=== PATIENT | female | born 1935 | race Caucasian/White ===

== ENCOUNTER 2016-08-10 19:13 | Inpatient (IN) | payer OTHER ==
[2016-08-10] MEDS ORDERED: ONDANSETRON 4 MG/2 ML VIAL IVPUSH ONE (21:06)
[2016-08-10] MEDS ORDERED: SODIUM CHLORIDE 1,000 ML IV STA ×2 (21:06→23:46)
--- NOTE | 2016-08-10 21:06 | PDOC ---
History of Present Illness - General History Source: Patient, Old Records Exam Limitations: No Limitations <Elvira Bennett - Last Filed: 08/10/16 21:17> - General History Source: Patient, Old Records Exam Limitations: No Limitations - History of Present Illness Initial Comments: 08/10/16 22:36 The patient is an 81 year old female, with a significant past medical history of HTN, Afib (on Eliquis), [place] (2015), CVA (2015), diverticulitis s/p resection with colostomy bag and breast CA s/p right mastectomy, who presents to the emergency department with nausea, vomiting, diarrhea and abdominal pain for the past 4 days. The patient reports that she ate tuna fish for lunch 4 days ago. After eating the tuna fish, the patient reports that she began feeling nauseous , began vomiting and experiencing abdominal pain, worst in the RLQ. The patient additionally reports multiple episodes of diarrhea and increased output into her colostomy bag. The patient reports that the nausea and vomiting have since resolved, although the diarrhea and abdominal pain has persisted. She additionally reports feeling generally weak over the past 4 days. Her PCP prescribed Loperamide for the diarrhea, but she reports no relief of symptoms. She presents to the ED today because of the weakness she has been experiencing and because of the persistent diarrhea and RLQ abdominal pain. The patients home health aide is with her in the ED. The patient denies fever, chills, cough , dysuria or any recent illnesses. Allergies: Sulfa, Atropine, Nitrofurantoin, Nitrofurantoin Macrocrystalline, Pantoprazole Sodium, Venlafaxine HCl, Clindamycin, Clonazepam, Digoxin, Escitalopram Oxalate, Famotidine, Furosemide, Gatifloxacin, Gentamicin, Hydroxyzine HCl, Hydroxyzine Pamoate, Levofloxacin, Metoprolol Succinate, Moxifloxacin HCl, Mupirocin, Paroxetine HCl, Sertraline HCl, Sotalol, Tramadol HCl Past Surgical History: Breast CA s/p Right Mastectomy, Diverticulitis s/p Resection w/ Colostomy Bag. Social History: Non smoker. Denies alcohol or drug use. PCP: Dr. Davis <Jayne Go - Last Filed: 08/10/16 23:33> - General Chief Complaint: Vomiting/Diarrhea Stated Complaint: LIGHTHEADED Time Seen by Provider: 08/10/16 20:27 Past History - Past Medical History Anemia: No Asthma: No Cancer: Yes (RT BREAST STATUS post partial mastectomy) Cardiac Disorders: Yes ([place]) CVA: Yes COPD: No CHF: No Dementia: No Diabetes: No GI Disorders: Yes (diverticulitis) Disorders: No HTN: Yes Hypercholesterolemia: No Kidney Stones: Yes Liver Disease: No Suicide Attempt (Hx): No Seizures: No Thyroid Disease: No - Surgical History Abdominal Surgery: Yes (COLOSTOMY) Appendectomy: No Cardiac Surgery: No Cholecystectomy: No Lung Surgery: No Neurologic Surgery: No Orthopedic Surgery: No - Immunization History Immunization Up to Date: Yes - Psycho/Social/Smoking Cessation Hx Anxiety: No Suicidal Ideation: No Smoking Status: No Smoking History: Never smoked Have you smoked in the past 12 months: No Number of Cigarettes Smoked Daily: 0 Hx Alcohol Use: No Drug/Substance Use Hx: No Substance Use Type: None Hx Substance Use Treatment: No <Elvira Bennett - Last Filed: 08/10/16 21:17> <Jayne Go - Last Filed: 08/10/16 23:33> - Past Medical History Allergies/Adverse Reactions: Allergies Allergy/AdvReac Type Severity Reaction Status Date / Time Sulfa (Sulfonamide Allergy Unknown Verified 08/10/16 19:26 Antibiotics) [Sulfa(Sulfonamide Antibiotics)] atropine Allergy Verified 08/10/16 19:26 nitrofurantoin Allergy Verified 08/10/16 19:26 [From Macrobid] nitrofurantoin Allergy Verified 08/10/16 19:26 macrocrystalline [From Macrobid] pantoprazole sodium Allergy Verified 08/10/16 19:26 [From Protonix] venlafaxine HCl Allergy Verified 08/10/16 19:26 [From Effexor] clindamycin AdvReac Verified 08/10/16 19:26 clonazepam AdvReac Verified 08/10/16 19:26 digoxin AdvReac Verified 08/10/16 19:26 escitalopram oxalate AdvReac Verified 08/10/16 19:26 [From Lexapro] famotidine AdvReac Verified 08/10/16 19:26 furosemide [From Lasix] AdvReac Verified 08/10/16 19:26 gatifloxacin [From Tequin] AdvReac Verified 08/10/16 19:26 gentamicin [Gentamicin] AdvReac Verified 08/10/16 19:26 hydroxyzine HCl AdvReac Verified 08/10/16 19:26 [From Vistaril] hydroxyzine pamoate AdvReac Verified 08/10/16 19:26 [From Vistaril] levofloxacin [From Levaquin] AdvReac Verified 08/10/16 19:26 metoprolol succinate AdvReac Verified 08/10/16 19:26 [From Toprol XL] moxifloxacin HCl AdvReac Verified 08/10/16 19:26 [From Avelox] mupirocin AdvReac Verified 08/10/16 19:26 paroxetine HCl [From Paxil] AdvReac Verified 08/10/16 19:26 sertraline HCl [From Zoloft] AdvReac Verified 08/10/16 19:26 sotalol [Sotalol] AdvReac Verified 08/10/16 19:26 tramadol HCl [From Ultram] AdvReac Verified 08/10/16 19:26 Home Medications: Ambulatory Orders Cyanocobalamin Vit B-12 Inj. [Vitamin B12 Injection -] 1,000 mcg IM MONTHLY Amlodipine Besylate [Norvasc -] 10 mg PO DAILY tablet 05/17/15 Aspirin [ASA -] 325 mg PO DAILY tablet 05/17/15 Carvedilol Phosphate [Coreg Cr -] 40 mg PO DAILY capsule. 05/17/15 Diazepam [Valium] 2 mg PO TID PRN #0 tablet 05/17/15 Fenofibric Acid [Trilipix -] 135 mg PO DAILY #30 cap 05/19/15 Zinc Sulfate 220 mg PO DAILY 05/27/15 Carvedilol Phosphate [Coreg Cr -] 80 mg PO DAILY capsule.sa 05/28/15 Ranolazine [Ranexa -] 500 mg PO BID #60 tab 05/28/15 Valsartan [Diovan] 160 mg PO DAILY tablet 05/28/15 Apixaban [Eliquis] 5 mg PO BID 08/24/15 Aspirin [Ecotrin] 81 mg PO DAILY 08/24/15 Carvedilol [Coreg] 12.5 mg PO BID 08/24/15 Cefpodoxime Proxetil [Vantin -] 100 mg PO BID #14 tablet 08/24/15 Review of Systems - Review of Systems Able to Perform ROS?: Yes Comments:: 08/10/16 22:36 GENERAL/CONSTITUTIONAL: +Weakness. No fever or chills. HEAD, EYES, EARS, NOSE AND THROAT: No change in vision. No ear pain or discharge. No sore throat. CARDIOVASCULAR: No chest pain or shortness of breath. RESPIRATORY: No cough, wheezing, or hemoptysis. GASTROINTESTINAL: +Diarrhea, RLQ abdominal pain. No nausea, vomiting or constipation. GENITOURINARY: No dysuria, frequency, or change in urination. MUSCULOSKELETAL: No joint or muscle swelling or pain. No neck or back pain. SKIN: No rash. NEUROLOGIC: No headache, vertigo, loss of consciousness, or change in strength/ sensation. ENDOCRINE: No increased thirst. No abnormal weight change. HEMATOLOGIC/LYMPHATIC: No anemia, easy bleeding, or history of blood clots. ALLERGIC/IMMUNOLOGIC: No hives or skin allergy. <Jayne Go - Last Filed: 08/10/16 23:33> *Physical Exam - Vital Signs Last Vital Signs Temp Pulse Resp BP Pulse Ox 97.7 F 97 H 18 150/80 96 08/10/16 19:33 08/10/16 19:33 08/10/16 19:33 08/10/16 19:33 08/10/16 19:33 <Elvira Bennett - Last Filed: 08/10/16 21:17> - Vital Signs Last Vital Signs Temp Pulse Resp BP Pulse Ox 97.7 F 97 H 18 150/80 96 08/10/16 19:33 08/10/16 19:33 08/10/16 19:33 08/10/16 19:33 08/10/16 19:33 - Physical Exam Comments: 08/10/16 21:57 GENERAL: Awake, alert, and fully oriented, in no acute distress. HEAD: No signs of trauma. EYES: PERRLA, EOMI, sclera anicteric, conjunctiva clear. ENT: Auricles normal inspection, hearing grossly normal, nares patent, oropharynx clear without exudates. Moist mucosa. NECK: Normal ROM, supple, no lymphadenopathy, JVD, or masses. LUNGS: Breath sounds equal, clear to auscultation bilaterally. No wheezes, and no crackles. HEART: Regular rate and rhythm, normal S1 and S2, no murmurs, rubs or gallops. ABDOMEN: RLQ tenderness to palpation. Soft, normoactive bowel sounds. No guarding, no rebound. No masses. EXTREMITIES: Normal range of motion, no edema. No clubbing or cyanosis. No cords, erythema, or tenderness. NEUROLOGICAL: Cranial nerves II through XII grossly intact. Normal speech, gait is deferred. SKIN: Warm, dry, normal turgor, no rashes or lesions noted. <Jayne Go - Last Filed: 08/10/16 23:33> Heart Score/ECG Review #1 ECG reviewed & interpreted by me at: 23:22 (Atrial fibrillation with a ventricular rate between 75-[address] segment changes. ) <Jayne Go - Last Filed: 08/10/16 23:33> ED Treatment Course - LABORATORY CBC & Chemistry Diagram: 08/10/16 22:15 08/10/16 22:15 <Jayne Go - Last Filed: 08/10/16 23:33> Medical Decision Making - Medical Decision Making 08/10/16 21:17 81-year-old female with history of hypertension, a-fib, CVA, CAD, perforated diverticulitis with a colostomy who presents to the emergency department with a 4 day history of nausea, vomiting and abdominal pain as well as increased output into her colostomy bag. Differential diagnosis includes but is not limited to: Acute gastroenteritis, colitis, appendicitis, electrolyte abnormality, dehydration, toxic/metabolic derangement. Plan: 1. Labs 2. IV fluids for hydration 3. Antiemetics 4. Pain management 5. Will likely require abdominal imaging with CT scan 6. Observe and reevaluate <Elvira Bennett - Last Filed: 08/10/16 21:17> *DC/Admit/Observation/Transfer - Attestations Physician Attestion: 08/10/16 21:27 I, Dr. Elvira Bennett, attest that the scribes documentation that appears above has been prepared under my direction and personally reviewed by me in its entirety. I confirmed that the note above accurately reflects all work, treatment, procedures, and medical decision-making performed by me. <Elvira Bennett - Last Filed: 08/10/16 21:17> - Attestations Scribe Attestion: 08/10/16 21:55 Documentation prepared by Jayne Go, acting as medical clinic manager for Elvira Bennett MD. <Jayne Go - Last Filed: 08/10/16 23:33> Diagnosis at time of Disposition: Abdominal pain, Nausea and vomiting, Diarrhea - Referrals Referrals: Kristopher Davis MD [Primary Care Provider] - Addendum entered and electronically signed by Angelique Christina MD 08/11/16 03:02: Progress Note - Progress Note Progress Note: EXAM: CT abdomen and pelvis without contrast IMAGES: [id number] INDICATION: Abdominal pain DATE OF SERVICE: 2016-08-11 01:38:32.0 COMPARISON: none FINDINGS: Lung bases are clear. The visualized cardiac chambers are normal size and configuration. The multiple bilateral renal cysts, bilateral renal scarring and moderate right renal atrophy. There is a 2.0 x 1.6 cm staghorn calculus the right kidney without hydronephrosis. Normal unenhanced liver, gallbladder, pancreas, spleen, adrenal glands . No bowel obstruction or inflammation. There is a left abdominal colostomy small parastomal hernia. Extensive diastases recti and fat containing ventral hernia is also noted. There is sigmoid diverticulosis without diverticulitis. There is no aortic aneurysm. There is no significant retroperitoneal lymphadenopathy. The appendix is normal. The uterus and adnexal structures are normal. Urinary bladder is unremarkable. There is no pelvic free fluid. No discrete pelvic lymphadenopathy is identified. L1 compression fractures noted, likely old with mild retropulsion and canal narrowing. IMPRESSION: 2 cm right renal staghorn calculus with right renal atrophy and bilateral renal scarring, but no hydronephrosis. Mild central canal narrowing from old L1 compression fracture. Postoperative changes without definite acute pathology. THIS DOCUMENT HAS BEEN ELECTRONICALLY SIGNED Pt will be sent home with ceftin 500BID x 7 days Addendum entered and electronically signed by Angelique Christina MD 08/11/16 06:24: Progress Note - Progress Note Progress Note: Patient's CT scan is normal; labs normal; she has a UTI and she will be discharged home
[2016-08-10 22:29] LABS: BASOPHIL 0.3 % (0-2.0); EOSINOPHIL 1.7 % (0-4.5); MCH 28.8 pg (25.7-33.7); MCHC 33.2 g/dl (32.0-36.0); MEAN CELL VOLUME 86.5 fl (80-96); MEAN PLT VOLUME 7.5 fl (7.5-11.1); NEUTROPHILS 69.1 % (42.8-82.8); PLATELET COUNT 201 K/MM3 (134-434); RDW 13.8 % (11.6-15.6); WHITE BLOOD COUNT 6.5 K/mm3 (4.0-10.0)
[2016-08-10 22:57] LABS: ALBUMIN 3.7 g/dl (3.4-5.0); ANION GAP 9 (8-16); BILIRUBIN,TOTAL 0.6 mg/dL (0.2-1.0); CALCIUM 8.3 mg/dL (8.5-10.1); CO2 23 mmol/L (21-32); CREATININE 1.3 mg/dL (0.55-1.02); GLUCOSE,RANDOM 104 mg/dL (74-106); MAGNESIUM 2.1 mg/dL (1.8-2.4); PHOSPHOROUS 3.6 mg/dL (2.5-4.9); SGOT/AST 30 U/L (15-37); SGPT/ALT 45 U/L (12-78); TOT PROT 7.4 g/dl (6.4-8.2)
[2016-08-10 23:00] LABS: ALK PHOS 77 U/L (45-117); TROPONIN I < 0.02 ng/ml (0.00-0.05)
[2016-08-10] MEDS ORDERED: POTASSIUM CHLORIDE TABS 20 MEQ TABLET.ER (FP) PO ONE ×2 (23:48→23:53)
[2016-08-11] MEDS ORDERED: POTASSIUM CHLORIDE 40 MEQ/30 ML UNIT DOSE CUP ONE ×2 (00:07→00:24)
[2016-08-11] MEDS ORDERED: POTASSIUM CHLORIDE 40 MEQ/30 ML UNIT DOSE CUP PO ONE (00:22)
[2016-08-11 01:06] LABS: URINE APPEARANCE SLCLOUDY; URINE BILIRUBIN NEGATIVE (NEGATIVE); URINE COLOR LTYELLOW; URINE GLUCOSE (UA) NEGATIVE (NEGATIVE); URINE KETONE NEGATIVE (NEGATIVE); URINE NITRITE NEGATIVE (NEGATIVE); URINE PROTEIN NEGATIVE (NEGATIVE); URINE UROBILINOGEN NEGATIVE E.U./dl (0.2-1.0)
[2016-08-11 01:16] LABS: URINE BLOOD 1+ (NEGATIVE); URINE LEUK ESTERASE 2+ (NEGATIVE)
[2016-08-11 01:18] LABS: URINE BACTERIA MANY /hpf (NONE SEEN); URINE RBC 2 /hpf (0-3); URINE WBC 50 /hpf (3-5)
[2016-08-11] MEDS ORDERED: CEPHALEXIN MONOHYDRATE 500 MG CAPSULE (UD) PO ONE (01:33)
[2016-08-11] MEDS ORDERED: MIDAZOLAM HCL 2 MG/2 ML SINGLE DOSE VIAL IVPUSH ONE (01:36)
[2016-08-11] MEDS ORDERED: MIDAZOLAM HCL 2 MG/2 ML SINGLE DOSE VIAL ONE (01:38)
[2016-08-11] MEDS ORDERED: CEPHALEXIN MONOHYDRATE 250 MG CAPSULE (FP) ONE (01:49)
[2016-08-11] MEDS ORDERED: MAGNESIUM SULF 50% (8.12 MEQ/2 ML-1 GM VIAL) IVPB ONE (06:02)
[2016-08-11] MEDS ORDERED: MAGNESIUM SULF 50% (8.12 MEQ/2 ML-1 GM VIAL) ONE (06:08)
--- NOTE | 2016-08-11 06:26 | PDOC ---
*Physical Exam - Vital Signs Last Vital Signs Temp Pulse Resp BP Pulse Ox 97.7 F 97 H 18 150/80 96 08/10/16 19:33 08/10/16 19:33 08/10/16 19:33 08/10/16 19:33 08/10/16 19:33 <TaraKaylan - Last Filed: 08/11/16 06:33> - Vital Signs Last Vital Signs Temp Pulse Resp BP Pulse Ox 97.7 F 97 H 18 150/80 96 08/10/16 19:33 08/10/16 19:33 08/10/16 19:33 08/10/16 19:33 08/10/16 19:33 <Angelique Christina - Last Filed: 08/11/16 22:37> ED Treatment Course - LABORATORY CBC & Chemistry Diagram: 08/10/16 22:15 08/10/16 22:15 - ADDITIONAL ORDERS Additional order review: Laboratory Results 08/11/16 08/10/16 08/10/16 00:58 22:15 22:15 Sodium 139 Potassium 3.2 L Chloride 107 Carbon Dioxide 23 Anion Gap 9 BUN 35 H D Creatinine 1.3 H D Creat Clearance w eGFR 39.31 Random Glucose 104 Calcium 8.3 L Phosphorus 3.6 Magnesium 2.1 Total Bilirubin 0.6 AST 30 D ALT 45 D Alkaline Phosphatase 77 Creatine Kinase 105 Troponin I < 0.02 Total Protein 7.4 Albumin 3.7 Lipase 104 Urine Color Ltyellow Urine Appearance Slcloudy Urine pH 5.0 Ur Specific Combs 1.015 Urine Protein Negative Urine Glucose (UA) Negative Urine Ketones Negative Urine Blood 1+ H Urine Nitrite Negative Urine Bilirubin Negative Urine Urobilinogen Negative Ur Leukocyte Esterase 2+ H Urine RBC 2 Urine WBC 50 Ur Epithelial Cells Rare Urine Bacteria Many 08/10/16 22:15 RBC 4.69 D MCV 86.5 MCHC 33.2 RDW 13.8 MPV 7.5 Neutrophils % 69.1 Lymphocytes % 18.7 D Monocytes % 10.2 Eosinophils % 1.7 Basophils % 0.3 - Medications Given in the ED: ED Medications Discontinued Medications Generic Name Dose Route Start Last Admin Trade Name Freq PRN Reason Stop Dose Admin Cephalexin HCl 500 mg 08/11/16 01:33 08/11/16 01:56 Keflex - PO 08/11/16 01:34 500 mg ONCE ONE Administration Sodium Chloride 1,000 mls @ 1,000 mls/hr 08/10/16 21:06 08/10/16 22:24 Normal Saline - IV 08/10/16 22:05 1,000 mls/hr ASDIR STA Administration Sodium Chloride 1,000 mls @ 1,000 mls/hr 08/10/16 23:46 08/11/16 00:05 Normal Saline - IV 08/11/16 00:45 1,000 mls/hr ASDIR STA Administration Magnesium Sulfate 2 gm 08/11/16 06:02 08/11/16 06:16 Magnesium Sulfate IVPB 08/11/16 06:03 2 gm ONCE ONE Administration Midazolam HCl 1 mg 08/11/16 01:36 08/11/16 01:45 Versed - IVPUSH 08/11/16 01:37 Not Given ONCE ONE Ondansetron HCl 4 mg 08/10/16 21:06 08/10/16 22:24 Zofran Injection IVPUSH 08/10/16 21:07 Not Given ONCE ONE Potassium Chloride 40 meq 08/10/16 23:48 08/11/16 00:28 K-Dur - PO 08/10/16 23:49 Not Given ONCE ONE Potassium Chloride 40 meq 08/11/16 00:22 08/11/16 00:28 Kcl Oral Solution - PO 08/11/16 00:23 40 meq ONCE ONE Administration <Kaylan Pacheco - Last Filed: 08/11/16 06:33> - LABORATORY CBC & Chemistry Diagram: 08/10/16 22:15 08/11/16 08:10 - ADDITIONAL ORDERS Additional order review: Laboratory Results 08/11/16 08/10/16 08/10/16 00:58 22:15 22:15 Sodium 139 Potassium 3.2 L Chloride 107 Carbon Dioxide 23 Anion Gap 9 BUN 35 H D Creatinine 1.3 H D Creat Clearance w eGFR 39.31 Random Glucose 104 Calcium 8.3 L Phosphorus 3.6 Magnesium 2.1 Total Bilirubin 0.6 AST 30 D ALT 45 D Alkaline Phosphatase 77 Creatine Kinase 105 Troponin I < 0.02 Total Protein 7.4 Albumin 3.7 Lipase 104 Urine Color Ltyellow Urine Appearance Slcloudy Urine pH 5.0 Ur Specific Combs 1.015 Urine Protein Negative Urine Glucose (UA) Negative Urine Ketones Negative Urine Blood 1+ H Urine Nitrite Negative Urine Bilirubin Negative Urine Urobilinogen Negative Ur Leukocyte Esterase 2+ H Urine RBC 2 Urine WBC 50 Ur Epithelial Cells Rare Urine Bacteria Many 08/10/16 22:15 RBC 4.69 D MCV 86.5 MCHC 33.2 RDW 13.8 MPV 7.5 Neutrophils % 69.1 Lymphocytes % 18.7 D Monocytes % 10.2 Eosinophils % 1.7 Basophils % 0.3 - Medications Given in the ED: ED Medications Discontinued Medications Generic Name Dose Route Start Last Admin Trade Name Magi PRN Reason Stop Dose Admin Cephalexin HCl 500 mg 08/11/16 01:33 08/11/16 01:56 Keflex - PO 08/11/16 01:34 500 mg ONCE ONE Administration Sodium Chloride 1,000 mls @ 1,000 mls/hr 08/10/16 21:06 08/10/16 22:24 Normal Saline - IV 08/10/16 22:05 1,000 mls/hr ASDIR STA Administration Sodium Chloride 1,000 mls @ 1,000 mls/hr 08/10/16 23:46 08/11/16 00:05 Normal Saline - IV 08/11/16 00:45 1,000 mls/hr ASDIR STA Administration Magnesium Sulfate 2 gm 08/11/16 06:02 08/11/16 06:16 Magnesium Sulfate IVPB 08/11/16 06:03 2 gm ONCE ONE Administration Midazolam HCl 1 mg 08/11/16 01:36 08/11/16 01:45 Versed - IVPUSH 08/11/16 01:37 Not Given ONCE ONE Ondansetron HCl 4 mg 08/10/16 21:06 08/10/16 22:24 Zofran Injection IVPUSH 08/10/16 21:07 Not Given ONCE ONE Potassium Chloride 40 meq 08/10/16 23:48 08/11/16 00:28 K-Dur - PO 08/10/16 23:49 Not Given ONCE ONE Potassium Chloride 40 meq 08/11/16 00:22 08/11/16 00:28 Kcl Oral Solution - PO 08/11/16 00:23 40 meq ONCE ONE Administration <Angelique Christina - Last Filed: 08/11/16 22:37> Medical Decision Making - Medical Decision Making 08/11/16 06:33 Dr. Davis was called at his office at 6:33. Awaiting call back. <Kaylan Pacheco - Last Filed: 08/11/16 06:33> - Medical Decision Making 08/11/16 22:[address] Davis's service as she is having loose diarrhea in her colostomy bag, and she continues with dizziness. SHe also has a UTI. She will be admitted for stool culture, hydration and IV abx. <Angelique Christina - Last Filed: 08/11/16 22:37> *DC/Admit/Observation/Transfer <Kaylan Pacheco - Last Filed: 08/11/16 06:33> - Discharge Dispostion Admit: Yes <Angelique Christina - Last Filed: 08/11/16 22:37> Diagnosis at time of Disposition: Abdominal pain, Nausea and vomiting, Diarrhea, UTI (urinary tract infection), Food poisoning - Discharge Dispostion Condition at time of disposition: Stable - Referrals - Patient Instructions - Post Discharge Activity
[2016-08-11] MEDS ORDERED: ONDANSETRON 4 MG/2 ML VIAL IVPB PRN (06:59)
[2016-08-11] MEDS: D5-1/2NS+20 MEQ KCL - 1,000 ML IV SCH ×2 (08:09→23:00)
[2016-08-11 09:03] LABS: MAGNESIUM 2.4 mg/dL (1.8-2.4); PHOSPHOROUS 2.7 mg/dL (2.5-4.9)
[2016-08-11 09:24] LABS: ALBUMIN 3.6 g/dl (3.4-5.0); BILIRUBIN,TOTAL 0.6 mg/dL (0.2-1.0); CALCIUM 8.3 mg/dL (8.5-10.1); CREATININE 1.1 mg/dL (0.55-1.02); TOT PROT 6.9 g/dl (6.4-8.2)
[2016-08-11 09:44] VITALS: BMI 33.7
[2016-08-11] MEDS ORDERED: HEPARIN NA (PORCINE) 5,000 UNITS/ML 1ML VIAL SQ SCH (10:00)
[2016-08-11] MEDS: CEFTRIAXONE 50 ML IVPB SCH (10:17)
--- NOTE | 2016-08-11 11:57 | CON.CARD ---
Consult Consult Specialty:: Cardiology for Dr. Sanchez Referred by:: Dr. Davis Reason for Consultation:: Afib, HTN - History of Present Illness Chief Complaint: nausea, vomiting, diarrhea History of Present Illness: 81 year old woman with a history of HTN, HLD, CAD with reported prior [place] 2014, Pafib previously on eliquis but currently denies taking, CVA 2014, h/o diverticulitis with colostomy, breast ca s/p mastectomy admitted with nausea, vomiting, diarrhea, abdominal pain which she reports after eating a tuna fish sandwhich 4 days ago. Pt. seen and examined today in [facility]. Pt. states that she has not been following with a contracts director recently. states that she is not taking eliquis currently. states that she has been in normal sinus rhythm. denies any chest pain, sob, palpitations, lightheadedness, dizziness, syncope, or near syncope. no pnd, orthopnea, or LE edema. - History Source History Provided By: Patient, Medical Record Limitations to Obtaining History: Poor Historian - Past Medical History DIRECTOR IT: Yes: CVA Cardio/Vascular: Yes: AFIB, CAD, HTN, Hyperlipdemia, [place] Gastrointestinal: Yes: Diverticulosis ...: No Psych: Yes: Anxiety - Past Surgical History Past Surgical History: Yes: Colostomy (repaired), Mastectomy - Alcohol/Substance Use Hx Alcohol Use: No History of Substance Use: reports: None - Smoking History Smoking history: Never smoked Have you smoked in the past 12 months: No Aproximately how many cigarettes per day: 0 - Social History Usual Living Arrangement: Alone ADL: Independent History of Recent Travel: No Home Medications - Allergies Allergies/Adverse Reactions: Allergies Allergy/AdvReac Type Severity Reaction Status Date / Time Sulfa (Sulfonamide Allergy Unknown Verified 08/10/16 19:26 Antibiotics) [Sulfa(Sulfonamide Antibiotics)] atropine Allergy Verified 08/10/16 19:26 nitrofurantoin Allergy Verified 08/10/16 19:26 [From Macrobid] nitrofurantoin Allergy Verified 08/10/16 19:26 macrocrystalline [From Macrobid] pantoprazole sodium Allergy Verified 08/10/16 19:26 [From Protonix] venlafaxine HCl Allergy Verified 08/10/16 19:26 [From Effexor] clindamycin AdvReac Verified 08/10/16 19:26 clonazepam AdvReac Verified 08/10/16 19:26 digoxin AdvReac Verified 08/10/16 19:26 escitalopram oxalate AdvReac Verified 08/10/16 19:26 [From Lexapro] famotidine AdvReac Verified 08/10/16 19:26 furosemide [From Lasix] AdvReac Verified 08/10/16 19:26 gatifloxacin [From Tequin] AdvReac Verified 08/10/16 19:26 gentamicin [Gentamicin] AdvReac Verified 08/10/16 19:26 hydroxyzine HCl AdvReac Verified 08/10/16 19:26 [From Vistaril] hydroxyzine pamoate AdvReac Verified 08/10/16 19:26 [From Vistaril] levofloxacin [From Levaquin] AdvReac Verified 08/10/16 19:26 metoprolol succinate AdvReac Verified 08/10/16 19:26 [From Toprol XL] moxifloxacin HCl AdvReac Verified 08/10/16 19:26 [From Avelox] mupirocin AdvReac Verified 08/10/16 19:26 paroxetine HCl [From Paxil] AdvReac Verified 08/10/16 19:26 sertraline HCl [From Zoloft] AdvReac Verified 08/10/16 19:26 sotalol [Sotalol] AdvReac Verified 08/10/16 19:26 tramadol HCl [From Ultram] AdvReac Verified 08/10/16 19:26 - Home Medications Home Medications: Ambulatory Orders Cyanocobalamin Vit B-12 Inj. [Vitamin B12 Injection -] 1,000 mcg IM MONTHLY Amlodipine Besylate [Norvasc -] 10 mg PO DAILY tablet 05/17/15 Aspirin [ASA -] 325 mg PO DAILY tablet 05/17/15 Carvedilol Phosphate [Coreg Cr -] 40 mg PO DAILY capsule.sa 05/17/15 Diazepam [Valium] 2 mg PO TID PRN #0 tablet 05/17/15 Fenofibric Acid [Trilipix -] 135 mg PO DAILY #30 cap 05/19/15 Zinc Sulfate 220 mg PO DAILY 05/27/15 Carvedilol Phosphate [Coreg Cr -] 80 mg PO DAILY capsule.sa 05/28/15 Ranolazine [Ranexa -] 500 mg PO BID #60 tab 05/28/15 Valsartan [Diovan] 160 mg PO DAILY tablet 05/28/15 Apixaban [Eliquis] 5 mg PO BID 08/24/15 Aspirin [Ecotrin] 81 mg PO DAILY 08/24/15 Carvedilol [Coreg] 12.5 mg PO BID 08/24/15 Cefpodoxime Proxetil [Vantin -] 100 mg PO BID #14 tablet 08/24/15 Cefuroxime Axetil [Ceftin -] 500 mg PO Q12H #14 tablet 08/11/16 Family Disease History - Family Disease History Family History: Denies Review of Systems - Review of Systems Constitutional: denies: No Symptoms, Chills, Diaphoresis, Fever, Lethargy, Loss of Appetite, Malaise, Night Sweats, Unintentional Wgt. Loss, Weakness, Other Eyes: denies: No Symptoms, Blind Spots, Blurred Vision, Double Vision, Eye Pain , Floaters, Photophobia, Recent Change in Vision, Other HENT: denies: No Symptoms, Difficult Swallowing, Ear Discharge, Ear Pain, Epistaxis, Gingival Bleeding, Hearing Loss, Mouth Swelling, Nasal Congestion, Ocular Prosthesis, Throat Pain, Toothache, Ringing in Ears, Other Neck: denies: No Symptoms, Decreased ROM, Lumps, Pain on Movement, Stiffness, Swollen Glands, Tenderness, Other Cardiovascular: denies: No Symptoms, Chest Pain, Edema, Palpitations, Shortness of Breath, Other Respiratory: denies: No Symptoms, Cough, Exercise Intolerance, Hemoptysis, Orthopnea, PND, Snoring, SOB, SOB on Exertion, Wheezing, Other Gastrointestinal: reports: Abdominal Pain, Diarrhea, Nausea, Vomiting. denies: No Symptoms, Bloating, Constipation, Dysphagia, Indigestion, Melena, Rectal Bleeding, Vomiting Blood, Other Genitourinary: denies: No Symptoms, Burning, Discharge, Dysuria, Flank Pain, Frequency, Hematuria, Incontinence, Lesions, Menses, Pain, Testicular Mass, Testicular Pain, Testicular Swelling, Urgency, Vaginal Bleeding, Other Breasts: denies: No Symptoms Reported, See HPI, Breast Implants, Discharge from Nipple, Lumps, Pain, Skin Changes, Other Musculoskeletal: denies: No Symptoms, Back Pain, Crepitus, Decreased ROM, Extremity Pain, Joint Pain, Joint Swelling, Muscle Pain, Muscle Cramps, Muscle Weakness, Other Integumentary: denies: No Symptoms, Blister, Bruising, Change in Color, Eczema, Erythema, Incision, Lesions, Lump, Pallor, Pruritis, Rash, Wound, Other Neurological: denies: No Symptoms, Change in LOC, Change in Speech, Confusion, Dizziness, Headache, Incoordination, Numbness, Parasthesia, Pre-Existing Deficit , Seizure, Syncope, Tremors, Unsteady Gait, Weakness, Other Endocrine: denies: No Symptoms, Excessive Sweating, Flushing, Increased Hunger, Increased Thirst, Intolerance to Cold, Intolerance to Heat, Unexplained Weight Gain, Unexplained Weight Loss, Other Hematology/Lymphatic: denies: No Symptoms, Easily Bruised, Excessive Bleeding, Swollen Glands, Other Psychiatric: denies: No Symptoms, Altered Sleep Pattern, Anxiety, Depression, Hallucinations, Panic, Paranoia, Suicidal, Other - Risk Factors Known Risk Factors: Yes: Age, Hypercholesterolemia, Hypertension, Prior [place] /Emb Stroke Vital Signs: Vital Signs Temperature 97.3 F L 08/11/16 08:50 Pulse Rate 86 08/11/16 08:50 Respiratory Rate 20 08/11/16 08:50 Blood Pressure 159/90 08/11/16 08:50 O2 Sat by Pulse Oximetry (%) 96 08/10/16 19:33 Constitutional: Yes: No Distress, Calm, Obese Eyes: Yes: WNL, Conjunctiva Clear, EOM Intact, PERRL HENT: Yes: WNL, Atraumatic, Normocephalic Neck: Yes: WNL, Supple, Trachea Midline Respiratory: Yes: WNL, Regular, CTA Bilaterally. No: Rales, Rhonchi, Wheezes Gastrointestinal: Yes: Normal Bowel Sounds, Other (colostomy bag with stool in it). No: Distention, Tenderness Renal/: Yes: WNL Cardiovascular: Yes: Regular Rate and Rhythm. No: Bradycardia, Tachycardia, Pulse Irregular, Gallop, Rub, Varicosities JVD: No Carotid Bruit: No PMI: Non-Displaced Heart Sounds: Yes: S1, S2. No: Split S2, S3, S4, Clicks, Gallop, Rub, Bruit Murmur: No: Systolic Murmur, Diastolic Murmur Musculoskeletal: Yes: WNL Extremities: Yes: WNL Edema: No Peripheral Pulses WNL: Yes Peripheral Pulses: 2+ Left Doralis Pedis, 2+ Right Dorsalis Pedis Integumentary: Yes: WNL Neurological: Yes: Alert, Oriented Psychiatric: Yes: Alert, Oriented - Other Data Labs, Other Data: CBC, BMP 08/11/16 08:10 ekg-08/10 afib 74bpm, poor R progression, nonspecific ST abnl Echo: Report Reviewed Prior Cardiac Procedures: Cardiac Catheterization Imaging - Results Chest X-ray: Report Reviewed, Image Reviewed EKG: Report Reviewed, Image Reviewed Other: Report Reviewed, Image Reviewed Problem List - Problems (1) Abdominal pain Code(s): R10.9 - UNSPECIFIED ABDOMINAL PAIN (2) Nausea and vomiting Code(s): R11.2 - NAUSEA WITH VOMITING, UNSPECIFIED (3) Atrial fibrillation Code(s): I48.91 - UNSPECIFIED ATRIAL FIBRILLATION Qualifiers: Atrial fibrillation type: persistent Qualified Code(s): I48.1 - Persistent atrial fibrillation (4) CAD (coronary artery disease) Code(s): I25.10 - ATHSCL HEART DISEASE OF [place] CORONARY ARTERY W/O ANG PCTRS Qualifiers: Coronary Disease-Associated Artery/Lesion type: [place] artery [place] vs. transplanted heart: [place] heart Associated angina: without angina Qualified Code(s): I25.10 - Atherosclerotic heart disease of [place] coronary artery without angina pectoris (5) Cerebrovascular accident (CVA) Code(s): I63.9 - CEREBRAL INFARCTION, UNSPECIFIED (6) HTN (hypertension) Code(s): I10 - ESSENTIAL (PRIMARY) HYPERTENSION Qualifiers: Hypertension type: essential hypertension Qualified Code(s): I10 - Essential (primary) hypertension (7) Hypercholesteremia Code(s): E78.0 - PURE HYPERCHOLESTEROLEMIA * DO NOT USE * Assessment/Plan 81 year old woman with a history of HTN, HLD, CAD with reported prior [place] 2014, Pafib previously on eliquis but currently denies taking, CVA 2014, h/o diverticulitis with colostomy, breast ca s/p mastectomy admitted with nausea, vomiting, diarrhea, abdominal pain which she reports after eating a tuna fish sandwhich 4 days ago. AFib-unknown if paroxysmal or chronic, as per prior admission notes it is persistent -pt has not followed with a contracts director and as per prior reports has been non- adherent with medical recommendations, treatment, follow up -previously on eliquis, denies taking it recently -CHADS-VAsc score 6, significant risk of thromboembolic event from Afib, pt should be on full AC if there are no clear contraindications -need to review prior considerations that were made both inpatient and outpatient -in notes from admission 10/2015 it was stated that pt stopped her eliquis because she saw blood in her colostomy bag, however eliquis is then listed on her discharge medications from that admission -until further information is obtained I will hold off on starting full AC -HR is well controlled, would confirm what medication she is actually taking at home and cont her rate control meds HTN-above goal -currently receiving norvasc -home meds list coreg, also was on diovan in past -need to clarify her home medical regimen, restart it then re-evaluate HTN control and adjust meds from there CAD-unknown details, as per records here she has refused ischemic work up in the past -no reported concerning symptoms this admission -outpatient follow up
--- NOTE | 2016-08-11 12:05 | HP ---
Admitting History and Physical - Admission Chief Complaint: vomiting, diarrhea History of Present Illness: 81 yo female, h/o CVA, HTN, Afib, status-colostomy due to remote perforated diverticulitis, presented last night to hospital with continual diarrhea, N/V after eating a tuna sandwich on . Started Imodium on Friday without improvement. Given IVF and Zofran in ED and nausea improved (ate breakfast this morning with no vomiting) but still notes a lot of diarrhea/ liquid stool in her colostomy. Was noted to have UTI on urine testing in ED. History Source: Patient, Medical Record Limitations to Obtaining History: No Limitations - Past Medical History PRODUCTION OPERATIONS INSPECTOR: Yes: CVA Cardiovascular: Yes: AFIB, CAD, HTN, Hyperlipdemia, [place] Gastrointestinal: Yes: Diverticulosis ...: No Heme/Onc: Yes: Cancer (Breast CA) Psych: Yes: Anxiety - Past Surgical History Past Surgical History: Yes: Colostomy (repaired), Mastectomy - Smoking History Smoking history: Never smoked Have you smoked in the past 12 months: No Aproximately how many cigarettes per day: 0 - Alcohol/Substance Use Hx Alcohol Use: No History of Substance Use: reports: None - Social History ADL: Independent History of Recent Travel: No Home Medications - Allergies Allergies/Adverse Reactions: Allergies Allergy/AdvReac Type Severity Reaction Status Date / Time Sulfa (Sulfonamide Allergy Unknown Verified 08/10/16 19:26 Antibiotics) [Sulfa(Sulfonamide Antibiotics)] atropine Allergy Verified 08/10/16 19:26 nitrofurantoin Allergy Verified 08/10/16 19:26 [From Macrobid] nitrofurantoin Allergy Verified 08/10/16 19:26 macrocrystalline [From Macrobid] pantoprazole sodium Allergy Verified 08/10/16 19:26 [From Protonix] venlafaxine HCl Allergy Verified 08/10/16 19:26 [From Effexor] clindamycin AdvReac Verified 08/10/16 19:26 clonazepam AdvReac Verified 08/10/16 19:26 digoxin AdvReac Verified 08/10/16 19:26 escitalopram oxalate AdvReac Verified 08/10/16 19:26 [From Lexapro] famotidine AdvReac Verified 08/10/16 19:26 furosemide [From Lasix] AdvReac Verified 08/10/16 19:26 gatifloxacin [From Tequin] AdvReac Verified 08/10/16 19:26 gentamicin [Gentamicin] AdvReac Verified 08/10/16 19:26 hydroxyzine HCl AdvReac Verified 08/10/16 19:26 [From Vistaril] hydroxyzine pamoate AdvReac Verified 08/10/16 19:26 [From Vistaril] levofloxacin [From Levaquin] AdvReac Verified 08/10/16 19:26 metoprolol succinate AdvReac Verified 08/10/16 19:26 [From Toprol XL] moxifloxacin HCl AdvReac Verified 08/10/16 19:26 [From Avelox] mupirocin AdvReac Verified 08/10/16 19:26 paroxetine HCl [From Paxil] AdvReac Verified 08/10/16 19:26 sertraline HCl [From Zoloft] AdvReac Verified 08/10/16 19:26 sotalol [Sotalol] AdvReac Verified 08/10/16 19:26 tramadol HCl [From Ultram] AdvReac Verified 08/10/16 19:26 - Home Medications Home Medications: Ambulatory Orders Cyanocobalamin Vit B-12 Inj. [Vitamin B12 Injection -] 1,000 mcg IM MONTHLY Amlodipine Besylate [Norvasc -] 10 mg PO DAILY tablet 05/17/15 Aspirin [ASA -] 325 mg PO DAILY tablet 05/17/15 Carvedilol Phosphate [Coreg Cr -] 40 mg PO DAILY capsule. 05/17/15 Diazepam [Valium] 2 mg PO TID PRN #0 tablet 05/17/15 Fenofibric Acid [Trilipix -] 135 mg PO DAILY #30 cap 05/19/15 Zinc Sulfate 220 mg PO DAILY 05/27/15 Carvedilol Phosphate [Coreg Cr -] 80 mg PO DAILY capsule.sa 05/28/15 Ranolazine [Ranexa -] 500 mg PO BID #60 tab 05/28/15 Valsartan [Diovan] 160 mg PO DAILY tablet 05/28/15 Apixaban [Eliquis] 5 mg PO BID 08/24/15 Aspirin [Ecotrin] 81 mg PO DAILY 08/24/15 Carvedilol [Coreg] 12.5 mg PO BID 08/24/15 Cefpodoxime Proxetil [Vantin -] 100 mg PO BID #14 tablet 08/24/15 Cefuroxime Axetil [Ceftin -] 500 mg PO Q12H #14 tablet 08/11/16 Family Disease History - Family Disease History Family History: Unremarkable Review of Systems - Review of Systems Constitutional: reports: Malaise, Weakness. denies: Chills, Fever Eyes: reports: No Symptoms HENT: denies: Throat Pain Neck: denies: Decreased ROM, Pain on Movement, Tenderness Cardiovascular: denies: Chest Pain, Palpitations Respiratory: denies: Cough, SOB Genitourinary: denies: Burning, Discharge, Dysuria Musculoskeletal: reports: Muscle Weakness (whole body) Neurological: reports: Change in Speech (slight slurrign of speech) Physical Examination Vital Signs: Vital Signs Temperature 97.3 F L 08/11/16 08:50 Pulse Rate 86 08/11/16 08:50 Respiratory Rate 20 08/11/16 08:50 Blood Pressure 159/90 08/11/16 08:50 O2 Sat by Pulse Oximetry (%) 96 08/10/16 19:33 Constitutional: Yes: Well Nourished, No Distress, Calm Eyes: Yes: Conjunctiva Clear, EOM Intact, PERRL HENT: Yes: Atraumatic, Normocephalic Neck: Yes: Supple, Trachea Midline Cardiovascular: Yes: Regular Rate and Rhythm, S1, S2. No: Murmur Respiratory: Yes: Regular, CTA Bilaterally. No: Rales, Rhonchi, Wheezes Gastrointestinal: Yes: Normal Bowel Sounds, Soft, Other (colostomy with brown liquid) Edema: Yes Edema: LUE: Trace, RUE: Trace, LLE: Trace, RLE: Trace Neurological: Yes: Alert, Oriented Labs: CBC, BMP 08/11/16 08:10 Imaging - Results Chest X-ray: Report Reviewed (no acute lung disease) Assessment/Plan Gastroenteritis v Food Poisoning with N/V, diarrhea Dehydration UTI HTN h/o nephrolithiasis PAF (refuses anticoagulants) h/o CVA h/o [place] h/o perforated diverticulitis with colostomy present h/o Breast cancer x2 with right mastectomy Borderline Personality disorder -cont IVF, check stool for cdiff/ culture/ O&P -patient non-compliant with BP medications (has been on numerous medications which she always stops citing side effects of med) -now stating that she can tolerate Norvasc -will restart that -cardio eval for uncontrolled BP
[2016-08-11] MEDS: amLODIPine BESYLATE 10 MG TABLET (FP) PO SCH (12:34)
--- NOTE | 2016-08-12 00:43 | EKG ---
Test Reason : Blood Pressure : / mmHG Vent. Rate : 074 BPM Atrial Rate : 073 BPM P-R Int : 000 ms QRS Dur : 092 ms QT Int : 414 ms P-R-T Axes : 000 009 079 degrees QTc Int : 459 ms ATRIAL FIBRILLATION NONSPECIFIC ST AND T WAVE ABNORMALITY ABNORMAL ECG WHEN COMPARED WITH ECG OF 28-MAY-2015 09:29, NO SIGNIFICANT CHANGE WAS FOUND Confirmed by JOVANNY BENDER MD ([id number]) on 08/12/2016 12:42:53 AM Referred By: Confirmed By:JOVANNY BENDER MD
[2016-08-12] MEDS: MAG HYDROX/AL HYDROX/SIMETH 30 ML UNIT-DOSE CUP PO PRN ×2 (04:42→11:56)
[2016-08-12 07:48] LABS: CALCIUM 8.1 mg/dL (8.5-10.1); CREATININE 0.9 mg/dL (0.55-1.02)
[2016-08-12] MEDS ORDERED: PT OWN MED DRAWER 7, Y5N ONE (08:39)
[2016-08-12] MEDS: amLODIPine BESYLATE 10 MG TABLET (FP) PO SCH (09:41)
[2016-08-12] MEDS: D5-1/2NS+20 MEQ KCL - 1,000 ML IV SCH ×2 (09:42→10:09)
[2016-08-12] MEDS: CEFTRIAXONE 50 ML IVPB SCH (10:05)
--- NOTE | 2016-08-12 11:51 | PN ---
Progress Note, Physician History of Present Illness: seen and examined today in [facility]. pt currently sitting on the toilet in the bathroom. limited ability to assess. no overnight events. no new complaints. - Current Medication List Current Medications: Active Medications Al Hydroxide/Mg Hydroxide (Mylanta Oral Suspension -) 30 ml PO Q6H PRN PRN Reason: INDIGESTION Last Admin: 08/12/16 04:42 Dose: 30 ml Amlodipine Besylate (Norvasc -) 10 mg PO DAILY [facility] Last Admin: 08/12/16 09:41 Dose: 10 mg Diazepam (Valium -) 2 mg PO Q6H PRN PRN Reason: ANXIETY Potassium Chloride/Dextrose/Sod Cl (D5-1/2ns+20 Meq Kcl -) 1,000 mls @ 75 mls/ hr IV ASDIR [facility] Last Admin: 08/12/16 10:09 Dose: 75 mls/hr Ceftriaxone Sodium (Rocephin 1gm Ivpb (Pre-Docked)) 50 mls @ 100 mls/hr IVPB DAILY [facility] Last Admin: 08/12/16 10:05 Dose: 100 mls/hr Ondansetron HCl (Zofran Injection) 4 mg IVPB Q6H PRN PRN Reason: NAUSEA - Objective Vital Signs: Vital Signs Temperature 97.7 F 08/12/16 02:00 Pulse Rate 81 08/12/16 02:00 Respiratory Rate 18 08/12/16 02:00 Blood Pressure 154/83 08/12/16 02:00 O2 Sat by Pulse Oximetry (%) 96 08/11/16 21:00 Constitutional: Yes: No Distress, Calm, Obese Eyes: Yes: WNL, Conjunctiva Clear HENT: Yes: WNL, Atraumatic, Normocephalic Neck: Yes: WNL, Supple, Trachea Midline Cardiovascular: Yes: Pulse Irregular, S1, S2. No: Bradycardia, Tachycardia, Bruit, JVD, Gallop, Murmur, Rub, S3, S4, Varicosities Respiratory: Yes: Regular, CTA Bilaterally. No: Rales, Rhonchi, Wheezes Gastrointestinal: Yes: Normal Bowel Sounds, Soft, Other (colostomy bag). No: Distention, Tenderness Musculoskeletal: Yes: WNL Edema: No Peripheral Pulses WNL: Yes Peripheral Pulses: Left Doralis Pedis: 2+, Right Dorsalis Pedis: 2+ Neurological: Yes: Alert, Oriented Psychiatric: Yes: Alert, Oriented Labs: CBC, BMP 08/12/16 05:35 - ....Imaging Chest X-ray: Report Reviewed, Image Reviewed EKG: Report Reviewed, Image Reviewed Other: Report Reviewed, Image Reviewed Problem List - Problems (1) Abdominal pain Code(s): R10.9 - UNSPECIFIED ABDOMINAL PAIN (2) Nausea and vomiting Code(s): R11.2 - NAUSEA WITH VOMITING, UNSPECIFIED (3) Atrial fibrillation Code(s): I48.91 - UNSPECIFIED ATRIAL FIBRILLATION Qualifiers: Atrial fibrillation type: persistent Qualified Code(s): I48.1 - Persistent atrial fibrillation (4) CAD (coronary artery disease) Code(s): I25.10 - ATHSCL HEART DISEASE OF [place] CORONARY ARTERY W/O ANG PCTRS Qualifiers: Coronary Disease-Associated Artery/Lesion type: [place] artery [place] vs. transplanted heart: [place] heart Associated angina: without angina Qualified Code(s): I25.10 - Atherosclerotic heart disease of [place] coronary artery without angina pectoris (5) Cerebrovascular accident (CVA) Code(s): I63.9 - CEREBRAL INFARCTION, UNSPECIFIED (6) HTN (hypertension) Code(s): I10 - ESSENTIAL (PRIMARY) HYPERTENSION Qualifiers: Hypertension type: essential hypertension Qualified Code(s): I10 - Essential (primary) hypertension (7) Hypercholesteremia Code(s): E78.0 - PURE HYPERCHOLESTEROLEMIA * DO NOT USE * Assessment/Plan 81 year old woman with a history of HTN, HLD, CAD with reported prior CT 2014, Pafib previously on eliquis but currently denies taking, CVA 2014, h/o diverticulitis with colostomy, breast ca s/p mastectomy admitted with nausea, vomiting, diarrhea, abdominal pain which she reports after eating a tuna fish sandwhich 4 days ago. AFib-HR controlled -pt has refused AC on several attempts in the past -CHADS-VAsc score 6, significant risk of thromboembolic event from Afib, pt should be on full AC, does not seem to be clear contraindications, however she has refused -HR is well controlled without need for AV mario blockers HTN-above goal at times, overall adequately controlled currently -pt has agreed to take norvasc, cont norvasc 10mg daily -she has refused other anti-htn meds, monitor BP on norvasc and re-evaluate CAD-unknown details, she has refused ischemic work up in the past -no reported concerning symptoms this admission -outpatient follow up
--- NOTE | 2016-08-12 12:47 | PN ---
Progress Note, Physician History of Present Illness: Patient notes weakness and dizziness, continues to have diarrhea in colostomy beg as well. Stomach was upset overnight, improved with Mylanta. - Current Medication List Current Medications: Active Medications Al Hydroxide/Mg Hydroxide (Mylanta Oral Suspension -) 30 ml PO Q6H PRN PRN Reason: INDIGESTION Last Admin: 08/12/16 11:56 Dose: 30 ml Amlodipine Besylate (Norvasc -) 10 mg PO DAILY [facility] Last Admin: 08/12/16 09:41 Dose: 10 mg Diazepam (Valium -) 2 mg PO Q6H PRN PRN Reason: ANXIETY Potassium Chloride/Dextrose/Sod Cl (D5-1/2ns+20 Meq Kcl -) 1,000 mls @ 75 mls/ hr IV ASDIR [facility] Last Admin: 08/12/16 10:09 Dose: 75 mls/hr Ceftriaxone Sodium (Rocephin 1gm Ivpb (Pre-Docked)) 50 mls @ 100 mls/hr IVPB DAILY [facility] Last Admin: 08/12/16 10:05 Dose: 100 mls/hr Ondansetron HCl (Zofran Injection) 4 mg IVPB Q6H PRN PRN Reason: NAUSEA - Objective Vital Signs: Vital Signs Temperature 97.7 F 08/12/16 02:00 Pulse Rate 81 08/12/16 02:00 Respiratory Rate 18 08/12/16 02:00 Blood Pressure 154/83 08/12/16 02:00 O2 Sat by Pulse Oximetry (%) 96 08/11/16 21:00 Constitutional: Yes: No Distress, Calm Neck: Yes: Supple, Trachea Midline Cardiovascular: Yes: Regular Rate and Rhythm, S1, S2. No: Murmur Respiratory: Yes: Regular, CTA Bilaterally. No: Rales, Rhonchi, Wheezes Gastrointestinal: Yes: Normal Bowel Sounds, Abdomen, Obese, Other (clostmy bag with liquid brown stool) Edema: Yes Edema: LUE: Trace, RUE: Trace, LLE: Trace, RLE: Trace Neurological: Yes: Alert, Oriented Labs: CBC, BMP 08/12/16 05:35 Assessment/Plan Gastroenteritis v Food Poisoning with N/V, diarrhea Dehydration UTI HTN h/o nephrolithiasis PAF (refuses anticoagulants) h/o CVA h/o [place] h/o perforated diverticulitis with colostomy present h/o Breast cancer x2 with right mastectomy Borderline Personality disorder -start kaopectate for diarrhea (notes Imodium did not help at home) -cont IVF for hydration -Abx for UTI -cont Norvasc for HTN -PT eval
[2016-08-12] MEDS: BISMUTH SUBSALICYLATE 262 MG/15 ML BTL PO PRN (21:35)
[2016-08-12] MEDS: diazePAM 2 MG TABLET PO PRN (21:35)
[2016-08-13] MEDS: D5-1/2NS+20 MEQ KCL - 1,000 ML IV SCH ×3 (01:55→16:40)
[2016-08-13] MEDS: MAG HYDROX/AL HYDROX/SIMETH 30 ML UNIT-DOSE CUP PO PRN ×3 (02:19→23:14)
[2016-08-13 08:06] LABS: CREATININE 0.9 mg/dL (0.55-1.02)
[2016-08-13] MEDS: amLODIPine BESYLATE 10 MG TABLET (FP) PO SCH (11:01)
[2016-08-13] MEDS: CEFTRIAXONE 50 ML IVPB SCH (11:01)
[2016-08-13] MEDS: diazePAM 2 MG TABLET PO PRN (15:14)
--- NOTE | 2016-08-13 17:00 | PN ---
Progress Note, Physician Chief Complaint: Ms Padron complains of having diarrhea that is not getting better. She also says she has transient vision changes, that every time she eats she gets weak and has diarrhea immediately, and that she overall is not getting better. Asked the nurse about the diarrhea and she is unsure, Ms Padron will not allow her to evaluate the bag. - Current Medication List Current Medications: Active Medications Al Hydroxide/Mg Hydroxide (Mylanta Oral Suspension -) 30 ml PO Q6H PRN PRN Reason: INDIGESTION Last Admin: 08/13/16 02:19 Dose: 30 ml Amlodipine Besylate (Norvasc -) 10 mg PO DAILY [facility] Last Admin: 08/13/16 11:01 Dose: 10 mg Bismuth Subsalicylate (Pepto-Bismol Liquid -) 30 ml PO Q6H PRN PRN Reason: INDIGESTION/DIARRHEA Last Admin: 08/12/16 21:35 Dose: 30 ml Diazepam (Valium -) 2 mg PO Q6H PRN PRN Reason: ANXIETY Last Admin: 08/13/16 15:14 Dose: 2 mg Potassium Chloride/Dextrose/Sod Cl (D5-1/2ns+20 Meq Kcl -) 1,000 mls @ 75 mls/ hr IV ASDIR COUNT INCLUDES [facility] Last Admin: 08/13/16 16:40 Dose: 75 mls/hr Ceftriaxone Sodium (Rocephin 1gm Ivpb (Pre-Docked)) 50 mls @ 100 mls/hr IVPB DAILY [facility] Last Admin: 08/13/16 11:01 Dose: 100 mls/hr Ondansetron HCl (Zofran Injection) 4 mg IVPB Q6H PRN PRN Reason: NAUSEA - Objective Vital Signs: Vital Signs Temperature 98.2 F 08/13/16 15:58 Pulse Rate 76 08/13/16 15:58 Respiratory Rate 20 08/13/16 15:58 Blood Pressure 134/72 08/13/16 15:58 O2 Sat by Pulse Oximetry (%) 96 08/13/16 09:00 Constitutional: Yes: Anxious, Obese Cardiovascular: Yes: Regular Rate and Rhythm. No: Gallop, Murmur, Rub Respiratory: Yes: Regular, CTA Bilaterally. No: Rales, Rhonchi, Wheezes Gastrointestinal: Yes: Normal Bowel Sounds, Soft. No: Distention, Tenderness Extremities: Yes: WNL Edema: No Labs: CBC, BMP 08/13/16 05:35 Problem List - Problems (1) Diarrhea Assessment/Plan: -patient states she is still having diarrhea -c. diff negative -currently unable to assess diarrhea, she recently emptied colostomy bag -await results from other stool tests -continue kaopectate and evaluate for improvement Code(s): R19.7 - DIARRHEA, UNSPECIFIED (2) UTI (urinary tract infection) Assessment/Plan: -continue rocephin day 08/25 (3) HTN (hypertension) Assessment/Plan: -appreciate cardiology assistance -she is agreeable to taking amlodipine -will not take other medications secondary to "sensitivity" Code(s): I10 - ESSENTIAL (PRIMARY) HYPERTENSION Qualifiers: Hypertension type: essential hypertension Qualified Code(s): I10 - Essential (primary) hypertension (4) Anxiety Assessment/Plan: -chronic -continue valium -however this makes disposition difficult as she often becomes very anxious on discharge and demands not to leave Code(s): F41.9 - ANXIETY DISORDER, UNSPECIFIED (5) Vision changes Assessment/Plan: -patient says these are new, however this is a chronic complaint that she has -it is worthwhile to check a head CT since patient has history of stroke -head CT performed and negative -? hypertensive changes, however also challenging as she is very particular about medications she takes -defer to Dr Davis to continue to follow up as an outpatient Code(s): H53.9 - UNSPECIFIED VISUAL DISTURBANCE
--- NOTE | 2016-08-13 17:52 | PN ---
Progress Note, Physician Chief Complaint: Pt alert; sitting up at bedside eating dinner. Gives long convoluted answers when asked how she feels: says she is easily short of breath and often has chest pain, both with and without exertion. She says she has had bad reactions to anticoagulants and refuses to consider taking one now for AF ("I don't have AF anymore", though EKG on admission shows AF). History of Present Illness: The patient is an 81 year old white female, with a significant past medical history of HTN, Afib (on Eliquis), MT (2015), CVA (2015), diverticulitis s/p resection with colostomy bag and breast CA s/p right mastectomy, anxiety, who presents to the emergency department with nausea, vomiting, diarrhea and abdominal pain for the past 4 days. The patient reports that she ate tuna fish for lunch 4 days ago. After eating the tuna fish, the patient reports that she began feeling nauseous, began vomiting and experiencing abdominal pain, worst in the RLQ. The patient additionally reports multiple episodes of diarrhea and increased output into her colostomy bag. The patient reports that the nausea and vomiting have since resolved, although the diarrhea and abdominal pain has persisted. She additionally reports feeling generally weak over the past 4 days. Her PCP prescribed Loperamide for the diarrhea, but she reports no relief of symptoms. She presents to the ED today because of the weakness she has been experiencing and because of the persistent diarrhea and RLQ abdominal pain. The patients home health aide is with her in the ED. The patient denies fever, chills, cough, dysuria or any recent illnesses. Allergies: Sulfa, Atropine, Nitrofurantoin, Nitrofurantoin Macrocrystalline, Pantoprazole Sodium, Venlafaxine HCl, Clindamycin, Clonazepam, Digoxin, Escitalopram Oxalate, Famotidine, Furosemide, Gatifloxacin, Gentamicin, Hydroxyzine HCl, Hydroxyzine Pamoate, Levofloxacin, Metoprolol Succinate, Moxifloxacin HCl, Mupirocin, Paroxetine HCl, Sertraline HCl, Sotalol, Tramadol HCl Past Surgical History: Breast CA s/p Right Mastectomy, Diverticulitis s/p Resection w/ Colostomy Bag. Social History: Non smoker. Denies alcohol or drug use. PCP: Dr. Davis - Current Medication List Current Medications: Active Medications Al Hydroxide/Mg Hydroxide (Mylanta Oral Suspension -) 30 ml PO Q6H PRN PRN Reason: INDIGESTION Last Admin: 08/13/16 17:14 Dose: 30 ml Amlodipine Besylate (Norvasc -) 10 mg PO DAILY [facility] Last Admin: 08/13/16 11:01 Dose: 10 mg Bismuth Subsalicylate (Pepto-Bismol Liquid -) 30 ml PO Q6H PRN PRN Reason: INDIGESTION/DIARRHEA Last Admin: 08/12/16 21:35 Dose: 30 ml Diazepam (Valium -) 2 mg PO Q6H PRN PRN Reason: ANXIETY Last Admin: 08/13/16 15:14 Dose: 2 mg Potassium Chloride/Dextrose/Sod Cl (D5-1/2ns+20 Meq Kcl -) 1,000 mls @ 75 mls/ hr IV ASDIR [facility] Last Admin: 08/13/16 16:40 Dose: 75 mls/hr Ceftriaxone Sodium (Rocephin 1gm Ivpb (Pre-Docked)) 50 mls @ 100 mls/hr IVPB DAILY [facility] Last Admin: 08/13/16 11:01 Dose: 100 mls/hr Ondansetron HCl (Zofran Injection) 4 mg IVPB Q6H PRN PRN Reason: NAUSEA - Objective Vital Signs: Vital Signs Temperature 98.2 F 08/13/16 15:58 Pulse Rate 76 08/13/16 15:58 Respiratory Rate 20 08/13/16 15:58 Blood Pressure 134/72 08/13/16 15:58 O2 Sat by Pulse Oximetry (%) 96 08/13/16 09:00 Constitutional: Yes: Anxious Eyes: Yes: WNL HENT: Yes: WNL Neck: Yes: WNL Cardiovascular: Yes: Regular Rate and Rhythm Respiratory: Yes: Regular Gastrointestinal: Yes: Soft ...Rectal Exam: Yes: Deferred Genitourinary: No: Anuria Breast(s): Yes: WNL Musculoskeletal: Yes: WNL Extremities: Yes: WNL Edema: No Peripheral Pulses WNL: Yes Integumentary: Yes: WNL Psychiatric: Yes: Other Labs: CBC, BMP 08/13/16 05:35 Abnormal Lab Results 08/13/16 05:35 Chloride 114 H Anion Gap 7 L Random Glucose 124 H Calcium 8.0 L Problem List - Problems (1) Abdominal pain Code(s): R10.9 - UNSPECIFIED ABDOMINAL PAIN (2) Diarrhea Code(s): R19.7 - DIARRHEA, UNSPECIFIED (3) Anxiety Code(s): F41.9 - ANXIETY DISORDER, UNSPECIFIED (4) Atrial fibrillation Assessment/Plan: Pt refuses taking systemic anticoagulation. On amlodipine for HTN; refuses to consider taking any other medication for HTN or HR control. Code(s): I48.91 - UNSPECIFIED ATRIAL FIBRILLATION Qualifiers: Atrial fibrillation type: persistent Qualified Code(s): I48.1 - Persistent atrial fibrillation (5) Back pain Code(s): M54.9 - DORSALGIA, UNSPECIFIED Qualifiers: Back pain location: back pain in unspecified location Chronicity: unspecified (6) CAD (coronary artery disease) Code(s): I25.10 - ATHSCL HEART DISEASE OF [place] CORONARY ARTERY W/O ANG PCTRS Qualifiers: Coronary Disease-Associated Artery/Lesion type: [place] artery [place] vs. transplanted heart: [place] heart Associated angina: without angina Qualified Code(s): I25.10 - Atherosclerotic heart disease of [place] coronary artery without angina pectoris (7) Cerebrovascular accident (CVA) Code(s): I63.9 - CEREBRAL INFARCTION, UNSPECIFIED (8) Chest pain Code(s): R07.9 - CHEST PAIN, UNSPECIFIED (9) Dizziness Code(s): R42 - DIZZINESS AND GIDDINESS (10) HTN (hypertension) Code(s): I10 - ESSENTIAL (PRIMARY) HYPERTENSION Qualifiers: Hypertension type: essential hypertension Qualified Code(s): I10 - Essential (primary) hypertension (11) Hypercholesteremia Code(s): E78.0 - PURE HYPERCHOLESTEROLEMIA * DO NOT USE * (12) Sensitivity to chemical Code(s): T78.40XA - ALLERGY, UNSPECIFIED, INITIAL ENCOUNTER (13) Obese Code(s): E66.9 - OBESITY, UNSPECIFIED (14) Psychological and behavioral factors associated with disorders or diseases classified elsewhere Code(s): F54 - PSYCH & BEHAVRL FACTORS ASSOC W DISORD OR DIS CLASSD [id number]
[2016-08-14] MEDS: D5-1/2NS+20 MEQ KCL - 1,000 ML IV SCH (06:18)
[2016-08-14] MEDS: CEFTRIAXONE 50 ML IVPB SCH (09:19)
[2016-08-14] MEDS: amLODIPine BESYLATE 10 MG TABLET (FP) PO SCH (10:33)
--- NOTE | 2016-08-14 12:20 | PN ---
Progress Note, Physician Chief Complaint: Ms Padron says her diarrhea is improving today. She still states that she is feeling bad, that she is weak, that her GI tract has undergone trauma, that she is having heartburn, that she is not eating or drinking like she should, and in general is not doing well because something is wrong. - Current Medication List Current Medications: Active Medications Al Hydroxide/Mg Hydroxide (Mylanta Oral Suspension -) 30 ml PO Q6H PRN PRN Reason: INDIGESTION Last Admin: 08/13/16 23:14 Dose: 30 ml Amlodipine Besylate (Norvasc -) 10 mg PO DAILY [facility] Last Admin: 08/14/16 10:33 Dose: 10 mg Bismuth Subsalicylate (Pepto-Bismol Liquid -) 30 ml PO Q6H PRN PRN Reason: INDIGESTION/DIARRHEA Last Admin: 08/12/16 21:35 Dose: 30 ml Diazepam (Valium -) 2 mg PO Q6H PRN PRN Reason: ANXIETY Last Admin: 08/13/16 15:14 Dose: 2 mg Ceftriaxone Sodium (Rocephin 1gm Ivpb (Pre-Docked)) 50 mls @ 100 mls/hr IVPB DAILY [facility] Last Admin: 08/14/16 09:19 Dose: 100 mls/hr Ondansetron HCl (Zofran Injection) 4 mg IVPB Q6H PRN PRN Reason: NAUSEA - Objective Vital Signs: Vital Signs Temperature 97.8 F 08/14/16 06:00 Pulse Rate 68 08/14/16 09:00 Respiratory Rate 20 08/14/16 09:00 Blood Pressure 158/72 08/14/16 09:00 O2 Sat by Pulse Oximetry (%) 96 08/13/16 22:00 Constitutional: Yes: No Distress, Calm, Obese Cardiovascular: Yes: Pulse Irregular. No: Tachycardia, Gallop, Murmur, Rub Respiratory: Yes: Regular, CTA Bilaterally. No: Rales, Rhonchi, Wheezes Extremities: Yes: WNL Edema: No Labs: CBC, BMP 08/13/16 05:35 Problem List - Problems (1) Diarrhea Code(s): R19.7 - DIARRHEA, UNSPECIFIED (3) HTN (hypertension) Code(s): I10 - ESSENTIAL (PRIMARY) HYPERTENSION Qualifiers: Hypertension type: essential hypertension Qualified Code(s): I10 - Essential (primary) hypertension (4) Anxiety Code(s): F41.9 - ANXIETY DISORDER, UNSPECIFIED (5) Vision changes Code(s): H53.9 - UNSPECIFIED VISUAL DISTURBANCE Assessment/Plan (1) Diarrhea Assessment/Plan: -diarrhea is improving -RN says she is eating and drinking without difficulty and maintaining hydration -will stop IVF -continue kaopectate -stool studies negative -discussed possibility of using lactobacillus, patient says cannot tolerate this -agrees to try yogurt Code(s): R19.7 - DIARRHEA, UNSPECIFIED (2) UTI (urinary tract infection) Assessment/Plan: -continue rocephin day 4/5 (3) HTN (hypertension) Assessment/Plan: -appreciate cardiology assistance -she is agreeable to taking amlodipine -will not take other medications secondary to "sensitivity" Code(s): I10 - ESSENTIAL (PRIMARY) HYPERTENSION Qualifiers: Hypertension type: essential hypertension Qualified Code(s): I10 - Essential (primary) hypertension (4) Anxiety Assessment/Plan: -chronic -continue valium -however this makes disposition difficult as she often becomes very anxious on discharge and demands not to leave Code(s): F41.9 - ANXIETY DISORDER, UNSPECIFIED (5) Vision changes Assessment/Plan: -chronic visual changes -head CT negative Code(s): H53.9 - UNSPECIFIED VISUAL DISTURBANCE
[2016-08-14] MEDS: MAG HYDROX/AL HYDROX/SIMETH 30 ML UNIT-DOSE CUP PO PRN (22:17)
[2016-08-15] MEDS: BISMUTH SUBSALICYLATE 262 MG/15 ML BTL PO PRN (03:23)
[2016-08-15 07:42] LABS: BASOPHIL 0.5 % (0-2.0); EOSINOPHIL 3.6 % (0-4.5); MCH 28.9 pg (25.7-33.7); MCHC 33.4 g/dl (32.0-36.0); MEAN CELL VOLUME 86.6 fl (80-96); MEAN PLT VOLUME 7.6 fl (7.5-11.1); NEUTROPHILS 64.9 % (42.8-82.8); PLATELET COUNT 213 K/MM3 (134-434); RDW 13.7 % (11.6-15.6); WHITE BLOOD COUNT 8.4 K/mm3 (4.0-10.0)
[2016-08-15 07:55] LABS: CALCIUM 8.5 mg/dL (8.5-10.1); MAGNESIUM 2.1 mg/dL (1.8-2.4); PHOSPHOROUS 3.6 mg/dL (2.5-4.9)
[2016-08-15] MEDS: amLODIPine BESYLATE 10 MG TABLET (FP) PO SCH (10:59)
--- NOTE | 2016-08-15 11:32 | PN ---
Progress Note, Physician Chief Complaint: Ms Padron says her diarrhea continues to improve. However remains with non- specific complaints of generalized weakness, abdominal pain, transient vision changes. - Current Medication List Current Medications: Active Medications Al Hydroxide/Mg Hydroxide (Mylanta Oral Suspension -) 30 ml PO Q6H PRN PRN Reason: INDIGESTION Last Admin: 08/14/16 22:17 Dose: 30 ml Amlodipine Besylate (Norvasc -) 10 mg PO DAILY [facility] Last Admin: 08/15/16 10:59 Dose: 10 mg Bismuth Subsalicylate (Pepto-Bismol Liquid -) 30 ml PO Q6H PRN PRN Reason: INDIGESTION/DIARRHEA Last Admin: 08/15/16 03:23 Dose: 30 ml Diazepam (Valium -) 2 mg PO Q6H PRN PRN Reason: ANXIETY Last Admin: 08/13/16 15:14 Dose: 2 mg Ceftriaxone Sodium (Rocephin 1gm Ivpb (Pre-Docked)) 50 mls @ 100 mls/hr IVPB DAILY [facility] Stop: 08/15/16 23:59 Last Admin: 08/14/16 09:19 Dose: 100 mls/hr Ondansetron HCl (Zofran Injection) 4 mg IVPB Q6H PRN PRN Reason: NAUSEA - Objective Vital Signs: Vital Signs Temperature 97.4 F L 08/15/16 06:00 Pulse Rate 73 08/15/16 06:00 Respiratory Rate 18 08/15/16 06:00 Blood Pressure 150/68 08/15/16 06:00 O2 Sat by Pulse Oximetry (%) 97 08/14/16 22:00 Constitutional: Yes: Anxious, Obese Cardiovascular: Yes: Regular Rate and Rhythm. No: Gallop, Murmur, Rub Respiratory: Yes: Regular, CTA Bilaterally. No: Rales, Rhonchi, Wheezes Gastrointestinal: Yes: Normal Bowel Sounds, Soft. No: Distention, Tenderness Extremities: Yes: WNL Edema: No Labs: CBC, BMP 08/15/16 06:40 08/15/16 06:40 Problem List - Problems (1) Diarrhea Code(s): R19.7 - DIARRHE[place], UNSPECIFIED (3) HTN (hypertension) Code(s): I10 - ESSENTIAL (PRIMARY) HYPERTENSION Qualifiers: Hypertension type: essential hypertension Qualified Code(s): I10 - Essential (primary) hypertension (4) Anxiety Code(s): F41.9 - ANXIETY DISORDER, UNSPECIFIED (5) Vision changes Code(s): H53.9 - UNSPECIFIED VISUAL DISTURBANCE Assessment/Plan (1) Diarrhea Assessment/Plan: -patient is tolerating diet well -diarrhea is resolved -all studies negative Code(s): R19.7 - DIARRHEA, UNSPECIFIED (2) UTI (urinary tract infection) Assessment/Plan: -continue rocephin day 10/25 -can stop after today's dose (3) HTN (hypertension) Assessment/Plan: -patient is now saying she is having a reaction to amlodipine -however very non-specific -patient with history of non-compliance secondary to "inability to tolerate" medications -encouraged her to take amlodipine Code(s): I10 - ESSENTIAL (PRIMARY) HYPERTENSION Qualifiers: Hypertension type: essential hypertension Qualified Code(s): I10 - Essential (primary) hypertension (4) Anxiety Assessment/Plan: -chronic -continue valium -however this makes disposition difficult as she often becomes very anxious on discharge and demands not to leave Code(s): F41.9 - ANXIETY DISORDER, UNSPECIFIED (5) Vision changes Assessment/Plan: -chronic visual changes -head CT negative Code(s): H53.9 - UNSPECIFIED VISUAL DISTURBANCE Dispo -discussed disposition, patient is safe for discharge in 24 hour -however patient resistant to leaving, asking to stay until Friday -says she needs help at home, she has trouble getting around and that we need to help her
[2016-08-15] MEDS: CEFTRIAXONE 50 ML IVPB SCH (12:36)
[2016-08-16] MEDS: amLODIPine BESYLATE 10 MG TABLET (FP) PO SCH (11:29)
--- NOTE | 2016-08-16 12:51 | PN ---
Progress Note, Physician Chief Complaint: Ms Padron complains of being weak and dizzy. Also complaining of abdominal pain and not feeling right. Says she is short of breath. States that her hands and feet are tingling every time she eats something. - Current Medication List Current Medications: Active Medications Al Hydroxide/Mg Hydroxide (Mylanta Oral Suspension -) 30 ml PO Q6H PRN PRN Reason: INDIGESTION Last Admin: 08/14/16 22:17 Dose: 30 ml Amlodipine Besylate (Norvasc -) 10 mg PO DAILY [facility] Last Admin: 08/16/16 11:29 Dose: Not Given Bismuth Subsalicylate (Pepto-Bismol Liquid -) 30 ml PO Q6H PRN PRN Reason: INDIGESTION/DIARRHEA Last Admin: 08/15/16 03:23 Dose: 30 ml Diazepam (Valium -) 2 mg PO Q6H PRN PRN Reason: ANXIETY Last Admin: 08/13/16 15:14 Dose: 2 mg Ondansetron HCl (Zofran Injection) 4 mg IVPB Q6H PRN PRN Reason: NAUSEA - Objective Vital Signs: Vital Signs Temperature 97.7 F 08/16/16 06:00 Pulse Rate 78 08/16/16 06:00 Respiratory Rate 18 08/16/16 06:00 Blood Pressure 148/80 08/16/16 06:00 O2 Sat by Pulse Oximetry (%) 96 08/15/16 21:00 Constitutional: Yes: Anxious, Obese Cardiovascular: Yes: Regular Rate and Rhythm. No: Gallop, Murmur, Rub Respiratory: Yes: Regular, CTA Bilaterally. No: Rales, Rhonchi, Wheezes Gastrointestinal: Yes: Normal Bowel Sounds, Soft. No: Distention, Tenderness Extremities: Yes: WNL Edema: No Labs: CBC, BMP 08/15/16 06:40 08/15/16 06:40 Problem List - Problems (1) Diarrhea Code(s): R19.7 - DIARRHEA, UNSPECIFIED (3) HTN (hypertension) Code(s): I10 - ESSENTIAL (PRIMARY) HYPERTENSION Qualifiers: Hypertension type: essential hypertension Qualified Code(s): I10 - Essential (primary) hypertension (4) Anxiety Code(s): F41.9 - ANXIETY DISORDER, UNSPECIFIED (5) Vision changes Code(s): H53.9 - UNSPECIFIED VISUAL DISTURBANCE Assessment/Plan (1) Diarrhea Assessment/Plan: -patient tolerating diet well and has been requesting extras over the admission -diarrhea resolved Code(s): R19.7 - DIARRHEA, UNSPECIFIED (2) UTI (urinary tract infection) Assessment/Plan: -finished full course of antibiotics (3) HTN (hypertension) Assessment/Plan: -today patient is refusing amlodipine Code(s): I10 - ESSENTIAL (PRIMARY) HYPERTENSION Qualifiers: Hypertension type: essential hypertension Qualified Code(s): I10 - Essential (primary) hypertension (4) Anxiety Assessment/Plan: -chronic -continue valium Code(s): F41.9 - ANXIETY DISORDER, UNSPECIFIED (5) Vision changes Assessment/Plan: -chronic visual changes -head CT negative Code(s): H53.9 - UNSPECIFIED VISUAL DISTURBANCE Dispo -patient complains of dizziness and weakness, however was able to ambulate with PT 75 feet without difficulty -also eating her meals and requesting extra -finished full course of antibiotics and monitored an extra 24 hours to allow her to set up disposition -medically unchanged and safe for discharge -however patient feels she is being discharged early secondary to her being weak , dizzy, and unable to care for herself at home -discharge disputed, await response
[2016-08-17 08:38] LABS: BASOPHIL 0.6 % (0-2.0); EOSINOPHIL 2.7 % (0-4.5); MCH 29.3 pg (25.7-33.7); MCHC 33.7 g/dl (32.0-36.0); MEAN PLT VOLUME 7.5 fl (7.5-11.1); NEUTROPHILS 62.7 % (42.8-82.8); PLATELET COUNT 210 K/MM3 (134-434); RDW 13.3 % (11.6-15.6); WHITE BLOOD COUNT 7.7 K/mm3 (4.0-10.0)
[2016-08-17 09:09] LABS: CALCIUM 8.9 mg/dL (8.5-10.1); CREATININE 1.1 mg/dL (0.55-1.02); PHOSPHOROUS 4.2 mg/dL (2.5-4.9)
[2016-08-17] MEDS: amLODIPine BESYLATE 10 MG TABLET (FP) PO SCH (10:52)
--- NOTE | 2016-08-17 14:19 | PN ---
Progress Note (short form) - Note Progress Note: Patient seen and examined. Still feeling very weak and unsteady. Diarrhea resolved. Denies chest pain, shortness of breath, palpitation or dizziness. Afebrile. - Current Medication List Current Medications: Active Medications Al Hydroxide/Mg Hydroxide (Mylanta Oral Suspension -) 30 ml PO Q6H PRN PRN Reason: INDIGESTION Last Admin: 08/14/16 22:17 Dose: 30 ml Amlodipine Besylate (Norvasc -) 10 mg PO DAILY [facility] Last Admin: 08/16/16 11:29 Dose: Not Given Bismuth Subsalicylate (Pepto-Bismol Liquid -) 30 ml PO Q6H PRN PRN Reason: INDIGESTION/DIARRHEA Last Admin: 08/15/16 03:23 Dose: 30 ml Diazepam (Valium -) 2 mg PO Q6H PRN PRN Reason: ANXIETY Last Admin: 08/13/16 15:14 Dose: 2 mg Ondansetron HCl (Zofran Injection) 4 mg IVPB Q6H PRN PRN Reason: NAUSEA - Objective Vital Signs: Vital Signs Period Temp Pulse Resp BP Sys/Jacobs Pulse Ox Last 24 Hr 98.3 F-98.7 F 70-84 18-20 142-149/72-83 Constitutional: Yes: Anxious, Obese Cardiovascular: Yes: Regular Rate and Rhythm. No: Gallop, Murmur, Rub Respiratory: Yes: Regular, CTA Bilaterally. No: Rales, Rhonchi, Wheezes Gastrointestinal: Yes: Normal Bowel Sounds, Soft. No: Distention, Tenderness Extremities: Yes: WNL Edema: No Labs: CBC, BMP 08/17/16 07:45 08/17/16 07:45 Problem List - Problems (1) Diarrhea Code(s): R19.7 - DI[place], UNSPECIFIED (3) HTN (hypertension) Code(s): I10 - ESSENTIAL (PRIMARY) HYPERTENSION Qualifiers: Hypertension type: essential hypertension Qualified Code(s): I10 - Essential (primary) hypertension (4) Anxiety Code(s): F41.9 - ANXIETY DISORDER, UNSPECIFIED (5) Vision changes Code(s): H53.9 - UNSPECIFIED VISUAL DISTURBANCE Assessment/Plan (1) Diarrhea Assessment/Plan: -patient tolerating diet well and has been requesting extras over the admission -diarrhea resolved Code(s): R19.7 - DIARRHEA, UNSPECIFIED (2) UTI (urinary tract infection) Assessment/Plan: -finished full course of antibiotics (3) HTN (hypertension) Assessment/Plan: -today patient is refusing amlodipine Code(s): I10 - ESSENTIAL (PRIMARY) HYPERTENSION Qualifiers: Hypertension type: essential hypertension Qualified Code(s): I10 - Essential (primary) hypertension (4) Anxiety Assessment/Plan: -chronic -continue valium Code(s): F41.9 - ANXIETY DISORDER, UNSPECIFIED (5) Vision changes Assessment/Plan: -chronic visual changes -head CT negative Code(s): H53.9 - UNSPECIFIED VISUAL DISTURBANCE Dispo -patient complains of dizziness/weakness/unsteady gait however was able to ambulate with PT 75 feet without difficulty -also eating her meals and requesting extra -finished full course of antibiotics and monitored an extra 24 hours to allow her to set up disposition -medically unchanged and safe for discharge -however patient feels she is being discharged early secondary to her being weak , dizzy, and unable to care for herself at home -discharge disputed, await response
--- NOTE | 2016-08-17 15:04 | CON.PSY ---
Psychiatry Consult Chief Complaint: I have been deathly sick, i got food poisoning. I am mentally ok. I only take valium on and off. Symptoms: reports: Somatic Symptoms, Conduct Problems, Oppositionalism - Previous Psychiatric Treatment Outpatient: None Inpatient: None - Previous Substance Abuse Treatment Outpatient: None Inpatient: None - Current Medications Current Medications: Active Medications Al Hydroxide/Mg Hydroxide (Mylanta Oral Suspension -) 30 ml PO Q6H PRN PRN Reason: INDIGESTION Last Admin: 08/14/16 22:17 Dose: 30 ml Amlodipine Besylate (Norvasc -) 10 mg PO DAILY CECILE Last Admin: 08/17/16 10:52 Dose: Not Given Bismuth Subsalicylate (Pepto-Bismol Liquid -) 30 ml PO Q6H PRN PRN Reason: INDIGESTION/DIARRHEA Last Admin: 08/15/16 03:23 Dose: 30 ml Diazepam (Valium -) 2 mg PO Q6H PRN PRN Reason: ANXIETY Last Admin: 08/13/16 15:14 Dose: 2 mg Ondansetron HCl (Zofran Injection) 4 mg IVPB Q6H PRN PRN Reason: NAUSEA - Allergies Allergies: Allergies Allergy/AdvReac Type Severity Reaction Status Date / Time Sulfa (Sulfonamide Allergy Unknown Verified 08/10/16 19:26 Antibiotics) [Sulfa(Sulfonamide Antibiotics)] atropine Allergy Verified 08/10/16 19:26 nitrofurantoin Allergy Verified 08/10/16 19:26 [From Macrobid] nitrofurantoin Allergy Verified 08/10/16 19:26 macrocrystalline [From Macrobid] pantoprazole sodium Allergy Verified 08/10/16 19:26 [From Protonix] venlafaxine HCl Allergy Verified 08/10/16 19:26 [From Effexor] clindamycin AdvReac Verified 08/10/16 19:26 clonazepam AdvReac Verified 08/10/16 19:26 digoxin AdvReac Verified 08/10/16 19:26 escitalopram oxalate AdvReac Verified 08/10/16 19:26 [From Lexapro] famotidine AdvReac Verified 08/10/16 19:26 furosemide [From Lasix] AdvReac Verified 08/10/16 19:26 gatifloxacin [From Tequin] AdvReac Verified 08/10/16 19:26 gentamicin [Gentamicin] AdvReac Verified 08/10/16 19:26 hydroxyzine HCl AdvReac Verified 08/10/16 19:26 [From Vistaril] hydroxyzine pamoate AdvReac Verified 08/10/16 19:26 [From Vistaril] levofloxacin [From Levaquin] AdvReac Verified 08/10/16 19:26 metoprolol succinate AdvReac Verified 08/10/16 19:26 [From Toprol XL] moxifloxacin HCl AdvReac Verified 08/10/16 19:26 [From Avelox] mupirocin AdvReac Verified 08/10/16 19:26 paroxetine HCl [From Paxil] AdvReac Verified 08/10/16 19:26 sertraline HCl [From Zoloft] AdvReac Verified 08/10/16 19:26 sotalol [Sotalol] AdvReac Verified 08/10/16 19:26 tramadol HCl [From Ultram] AdvReac Verified 08/10/16 19:26 - Current Living Status Usual Living Arrangement: Alone - Current Mental Status Evaluation Appearance: Disheveled Attitude: Guarded - Affect Affect: Full Range Appropriateness: Appropriate to Content - Mood Mood: Euthymic - Speech/Language Expressive: Coherent - Psychomotor Activity Psychomotor Activity: Normal - Thought Process Thought Process: Intact - Thought Content Hallucinations: Absent Delusions: Absent - Self Perception Self Perception: No Impairment - Cognition Attention: Alert Orientation: Time Memory, Remote: Intact - Concentration Serial Sevens Intact: No Simple Calculations Intact: No - Abstraction Proverb Interpretation: Intact Judgement: Minimally Impaired - Insight Insight: Intact - Impulse Control Impulse Control: Good Control - Suicidal Ideation Suicidal Ideation: No - Homicidal Ideation Homicidal Ideation: No Assessment/Plan 10 Patientvhas a long history of Psych somatic and Hypochondrical behaviour. 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 I have known this patient for more than ten years from [facility]. She can be very manipulative. 2) patient has the mental capacity to make decisions at this time.
[2016-08-17] MEDS: MAG HYDROX/AL HYDROX/SIMETH 30 ML UNIT-DOSE CUP PO PRN (16:20)
[2016-08-18] MEDS: amLODIPine BESYLATE 10 MG TABLET (FP) PO SCH (12:11)
[2016-08-18] MEDS ORDERED: VERAPAMIL HCL 120 MG E.R. TABLET PO SCH (12:30)
[2016-08-18] MEDS ORDERED: amLODIPine BESYLATE 5 MG TABLET (FP) PO SCH (12:45)
[2016-08-18] MEDS ORDERED: amLODIPine BESYLATE 5 MG TABLET (FP) PO ONE (19:12)
--- NOTE | 2016-08-18 19:12 | PN ---
Progress Note, Physician Chief Complaint: Pt alert; asks why she gets dizzy so frequently. Still refusing to take antihypertensive medications. History of Present Illness: The patient is an 81 year old white female, with a significant past medical history of HTN, Afib (on Eliquis), [place] (2015), CVA (2015), diverticulitis s/p resection with colostomy bag and breast CA s/p right mastectomy, anxiety, who presents to the emergency department with nausea, vomiting, diarrhea and abdominal pain for the past 4 days. The patient reports that she ate tuna fish for lunch 4 days ago. After eating the tuna fish, the patient reports that she began feeling nauseous, began vomiting and experiencing abdominal pain, worst in the RLQ. The patient additionally reports multiple episodes of diarrhea and increased output into her colostomy bag. The patient reports that the nausea and vomiting have since resolved, although the diarrhea and abdominal pain has persisted. She additionally reports feeling generally weak over the past 4 days. Her PCP prescribed Loperamide for the diarrhea, but she reports no relief of symptoms. She presents to the ED today because of the weakness she has been experiencing and because of the persistent diarrhea and RLQ abdominal pain. The patients home health aide is with her in the ED. The patient denies fever, chills, cough, dysuria or any recent illnesses. Allergies: Sulfa, Atropine, Nitrofurantoin, Nitrofurantoin Macrocrystalline, Pantoprazole Sodium, Venlafaxine HCl, Clindamycin, Clonazepam, Digoxin, Escitalopram Oxalate, Famotidine, Furosemide, Gatifloxacin, Gentamicin, Hydroxyzine HCl, Hydroxyzine Pamoate, Levofloxacin, Metoprolol Succinate, Moxifloxacin HCl, Mupirocin, Paroxetine HCl, Sertraline HCl, Sotalol, Tramadol HCl Past Surgical History: Breast CA s/p Right Mastectomy, Diverticulitis s/p Resection w/ Colostomy Bag. Social History: Non smoker. Denies alcohol or drug use. PCP: Dr. Davis - Current Medication List Current Medications: Active Medications Al Hydroxide/Mg Hydroxide (Mylanta Oral Suspension -) 30 ml PO Q6H PRN PRN Reason: INDIGESTION Last Admin: 08/17/16 16:20 Dose: 30 ml Amlodipine Besylate (Norvasc -) 5 mg PO DAILY CECILE Last Admin: 08/18/16 13:08 Dose: 5 mg Bismuth Subsalicylate (Pepto-Bismol Liquid -) 30 ml PO Q6H PRN PRN Reason: INDIGESTION/DIARRHEA Last Admin: 08/15/16 03:23 Dose: 30 ml Ondansetron HCl (Zofran Injection) 4 mg IVPB Q6H PRN PRN Reason: NAUSEA - Objective Vital Signs: Vital Signs Temperature 98.4 F 08/18/16 17:39 Pulse Rate 76 08/18/16 17:39 Respiratory Rate 20 08/18/16 17:39 Blood Pressure 151/80 08/18/16 17:39 O2 Sat by Pulse Oximetry (%) 95 08/18/16 09:00 Constitutional: Yes: Anxious Eyes: Yes: WNL HENT: Yes: WNL Neck: Yes: WNL Cardiovascular: Yes: WNL Respiratory: Yes: WNL Gastrointestinal: Yes: Soft ...Rectal Exam: Yes: Deferred Genitourinary: No: Anuria Breast(s): Yes: WNL Musculoskeletal: Yes: Muscle Weakness Extremities: Yes: WNL Edema: No Peripheral Pulses WNL: Yes Integumentary: Yes: WNL Wound/Incision: Yes: Clean/Dry Neurological: Yes: Alert, Oriented, Weakness Psychiatric: Yes: Other Labs: CBC, BMP 08/17/16 07:45 08/17/16 07:45 Problem List - Problems (1) Abdominal pain Code(s): R10.9 - UNSPECIFIED ABDOMINAL PAIN (2) Diarrhea Code(s): R19.7 - DIARRHEA, UNSPECIFIED (3) Anxiety Code(s): F41.9 - ANXIETY DISORDER, UNSPECIFIED (4) Atrial fibrillation Assessment/Plan: Pt refuses taking systemic anticoagulation. Refuses any antihypertensives presently (and has not been on AV conduction melodie). Code(s): I48.91 - UNSPECIFIED ATRIAL FIBRILLATION Qualifiers: Atrial fibrillation type: persistent Qualified Code(s): I48.1 - Persistent atrial fibrillation (5) Back pain Code(s): M54.9 - DORSALGIA, UNSPECIFIED Qualifiers: Back pain location: back pain in unspecified location Chronicity: unspecified (6) CAD (coronary artery disease) Code(s): I25.10 - ATHSCL HEART DISEASE OF [place] CORONARY ARTERY W/O ANG PCTRS Qualifiers: Coronary Disease-Associated Artery/Lesion type: [place] artery [place] vs. transplanted heart: [place] heart Associated angina: without angina Qualified Code(s): I25.10 - Atherosclerotic heart disease of [place] coronary artery without angina pectoris (7) Cerebrovascular accident (CVA) Code(s): I63.9 - CEREBRAL INFARCTION, UNSPECIFIED (8) Chest pain Code(s): R07.9 - CHEST PAIN, UNSPECIFIED (9) Dizziness Code(s): R42 - DIZZINESS AND GIDDINESS (10) HTN (hypertension) Assessment/Plan: refusing medication. Code(s): I10 - ESSENTIAL (PRIMARY) HYPERTENSION Qualifiers: Hypertension type: essential hypertension Qualified Code(s): I10 - Essential (primary) hypertension (11) Hypercholesteremia Code(s): E78.0 - PURE HYPERCHOLESTEROLEMIA * DO NOT USE * (12) Sensitivity to chemical Code(s): T78.40XA - ALLERGY, UNSPECIFIED, INITIAL ENCOUNTER (13) Obese Code(s): E66.9 - OBESITY, UNSPECIFIED (14) Psychological and behavioral factors associated with disorders or diseases classified elsewhere Code(s): F54 - PSYCH & BEHAVRL FACTORS ASSOC W DISORD OR DIS CLASSD ELSWHR
--- NOTE | 2016-08-18 19:23 | PN ---
Progress Note, Physician Chief Complaint: Pt alert; walked to [facility]; not dizzy, but anxious. History of Present Illness: The patient is an 81 year old white female, with a significant past medical history of HTN, Afib (on Eliquis), [place] (2015), CVA (2015), diverticulitis s/p resection with colostomy bag and breast CA s/p right mastectomy, anxiety, who presents to the emergency department with nausea, vomiting, diarrhea and abdominal pain for the past 4 days. The patient reports that she ate tuna fish for lunch 4 days ago. After eating the tuna fish, the patient reports that she began feeling nauseous, began vomiting and experiencing abdominal pain, worst in the RLQ. The patient additionally reports multiple episodes of diarrhea and increased output into her colostomy bag. The patient reports that the nausea and vomiting have since resolved, although the diarrhea and abdominal pain has persisted. She additionally reports feeling generally weak over the past 4 days. Her PCP prescribed Loperamide for the diarrhea, but she reports no relief of symptoms. She presents to the ED today because of the weakness she has been experiencing and because of the persistent diarrhea and RLQ abdominal pain. The patients home health aide is with her in the ED. The patient denies fever, chills, cough, dysuria or any recent illnesses. Allergies: Sulfa, Atropine, Nitrofurantoin, Nitrofurantoin Macrocrystalline, Pantoprazole Sodium, Venlafaxine HCl, Clindamycin, Clonazepam, Digoxin, Escitalopram Oxalate, Famotidine, Furosemide, Gatifloxacin, Gentamicin, Hydroxyzine HCl, Hydroxyzine Pamoate, Levofloxacin, Metoprolol Succinate, Moxifloxacin HCl, Mupirocin, Paroxetine HCl, Sertraline HCl, Sotalol, Tramadol HCl Past Surgical History: Breast CA s/p Right Mastectomy, Diverticulitis s/p Resection w/ Colostomy Bag. Social History: Non smoker. Denies alcohol or drug use. PCP: Dr. Davis - Current Medication List Current Medications: Active Medications Al Hydroxide/Mg Hydroxide (Mylanta Oral Suspension -) 30 ml PO Q6H PRN PRN Reason: INDIGESTION Last Admin: 08/17/16 16:20 Dose: 30 ml Amlodipine Besylate (Norvasc -) 5 mg PO ONCE ONE Stop: 02/26/17 19:13 Amlodipine Besylate (Norvasc -) 10 mg PO DAILY CECILE Bismuth Subsalicylate (Pepto-Bismol Liquid -) 30 ml PO Q6H PRN PRN Reason: INDIGESTION/DIARRHEA Last Admin: 08/15/16 03:23 Dose: 30 ml Ondansetron HCl (Zofran Injection) 4 mg IVPB Q6H PRN PRN Reason: NAUSEA - Objective Vital Signs: Vital Signs Temperature 98.4 F 08/18/16 17:39 Pulse Rate 76 08/18/16 17:39 Respiratory Rate 20 08/18/16 17:39 Blood Pressure 151/80 08/18/16 17:39 O2 Sat by Pulse Oximetry (%) 95 08/18/16 09:00 Constitutional: Yes: Anxious Eyes: Yes: WNL HENT: Yes: WNL Neck: Yes: WNL Cardiovascular: Yes: S1, S2, S4 Respiratory: Yes: Regular Gastrointestinal: Yes: Soft ...Rectal Exam: Yes: Deferred Genitourinary: No: Anuria Breast(s): Yes: WNL Musculoskeletal: Yes: Muscle Weakness Extremities: Yes: WNL Edema: No Peripheral Pulses WNL: Yes Neurological: Yes: Alert, Oriented, Weakness Psychiatric: Yes: Other Labs: CBC, BMP 08/17/16 07:45 08/17/16 07:45 Abnormal Lab Results 08/18/16 07:45 Triglycerides 232 H D Total LDL Cholesterol 106 H HDL Cholesterol 28 L Problem List - Problems (1) Abdominal pain Code(s): R10.9 - UNSPECIFIED ABDOMINAL PAIN (2) Diarrhea Code(s): R19.7 - DIARRHEA, UNSPECIFIED (3) Anxiety Code(s): F41.9 - ANXIETY DISORDER, UNSPECIFIED (4) Atrial fibrillation Assessment/Plan: Pt refuses taking systemic anticoagulation or AV conduction melodie. Code(s): I48.91 - UNSPECIFIED ATRIAL FIBRILLATION Qualifiers: Atrial fibrillation type: persistent Qualified Code(s): I48.1 - Persistent atrial fibrillation (5) Back pain Code(s): M54.9 - DORSALGIA, UNSPECIFIED Qualifiers: Back pain location: back pain in unspecified location Chronicity: unspecified (6) CAD (coronary artery disease) Code(s): I25.10 - ATHSCL HEART DISEASE OF [place] CORONARY ARTERY W/O ANG PCTRS Qualifiers: Coronary Disease-Associated Artery/Lesion type: [place] artery [place] vs. transplanted heart: [place] heart Associated angina: without angina Qualified Code(s): I25.10 - Atherosclerotic heart disease of [place] coronary artery without angina pectoris (7) Cerebrovascular accident (CVA) Code(s): I63.9 - CEREBRAL INFARCTION, UNSPECIFIED (8) Chest pain Code(s): R07.9 - CHEST PAIN, UNSPECIFIED (9) Dizziness Code(s): R42 - DIZZINESS AND GIDDINESS (10) HTN (hypertension) Assessment/Plan: Pt now agreed to restart amlodipine 5 mg daily earlier today; with BP still elevated (and the risks of uncontrolled BP discussed in detail), she also agreed to return to 10 mg daily, with an additional 5 mg dose now. Code(s): I10 - ESSENTIAL (PRIMARY) HYPERTENSION Qualifiers: Hypertension type: essential hypertension Qualified Code(s): I10 - Essential (primary) hypertension (11) Hypercholesteremia Assessment/Plan: LDL nearly 200 in 2015. F/u lipid panel; pt should ideally be on statin, modify diet, lose weight, and increase exercise. Code(s): E78.0 - PURE HYPERCHOLESTEROLEMIA * DO NOT USE * (12) Sensitivity to chemical Code(s): T78.40XA - ALLERGY, UNSPECIFIED, INITIAL ENCOUNTER (13) Obese Code(s): E66.9 - OBESITY, UNSPECIFIED (14) Psychological and behavioral factors associated with disorders or diseases classified elsewhere Assessment/Plan: psychological counseling would be of benefit. Code(s): F54 - PSYCH & BEHAVRL FACTORS ASSOC W DISORD OR DIS CLASSD ELSWHR
--- NOTE | 2016-08-18 19:54 | PN ---
Progress Note (short form) - Note Progress Note: C/O generalized weakness. Seen by psych. Initially refused to take amlodipine but agreed later. Denies chest pain, shortness of breath, palpitation or dizziness. Afebrile. Current Medications Al Hydroxide/Mg Hydroxide (Mylanta Oral Suspension -) 30 ml PO Q6H PRN PRN Reason: INDIGESTION Last Admin: 08/17/16 16:20 Dose: 30 ml Amlodipine Besylate (Norvasc -) 10 mg PO DAILY CECILE Bismuth Subsalicylate (Pepto-Bismol Liquid -) 30 ml PO Q6H PRN PRN Reason: INDIGESTION/DIARRHEA Last Admin: 08/15/16 03:23 Dose: 30 ml Ondansetron HCl (Zofran Injection) 4 mg IVPB Q6H PRN PRN Reason: NAUSEA - Objective Vital Signs: Vital Signs Period Temp Pulse Resp BP Sys/Jacobs Pulse Ox Last 24 Hr 98.0 F-98.4 F 68-78 18-20 150-179/73-93 95 Constitutional: Yes: Anxious, Obese Cardiovascular: Yes: Regular Rate and Rhythm. No: Gallop, Murmur, Rub Respiratory: Yes: Regular, CTA Bilaterally. No: Rales, Rhonchi, Wheezes Gastrointestinal: Yes: Normal Bowel Sounds, Soft. No: Distention, Tenderness Extremities: Yes: WNL Edema: No Labs: CBC, BMP 08/17/16 07:45 08/17/16 07:45 Problem List - Problems (1) Diarrhea Code(s): R19.7 - DIARRHEA, UNSPECIFIED (3) HTN (hypertension) Code(s): I10 - ESSENTIAL (PRIMARY) HYPERTENSION Qualifiers: Hypertension type: essential hypertension Qualified Code(s): I10 - Essential (primary) hypertension (4) Anxiety Code(s): F41.9 - ANXIETY DISORDER, UNSPECIFIED (5) Vision changes Code(s): H53.9 - UNSPECIFIED VISUAL DISTURBANCE Assessment/Plan (1) Diarrhea Assessment/Plan: -diarrhea resolved Code(s): R19.7 - DIARRHEA, UNSPECIFIED (2) UTI (urinary tract infection) Assessment/Plan: -finished full course of antibiotics (3) HTN (hypertension) Assessment/Plan: -Agreed to be restarted on amlodipine. Code(s): I10 - ESSENTIAL (PRIMARY) HYPERTENSION Qualifiers: Hypertension type: essential hypertension Qualified Code(s): I10 - Essential (primary) hypertension (4) Anxiety Assessment/Plan: -chronic -continue valium Code(s): F41.9 - ANXIETY DISORDER, UNSPECIFIED (5) Vision changes Assessment/Plan: -chronic visual changes -head CT negative Code(s): H53.9 - UNSPECIFIED VISUAL DISTURBANCE Dispo - Planned for discharge tomorrow. Patient agrees.
[2016-08-18 20:11] LABS: CHOLESTEROL 168 mg/dL (50-200); LDL CHOLESTEROL (ONLY SJRH) 106 mg/dL (5-100)
[2016-08-19] MEDS ORDERED: amLODIPine BESYLATE 10 MG TABLET (FP) PO SCH (10:00)
[2016-08-19] MEDS ORDERED: amLODIPine BESYLATE 5 MG TABLET (FP) PO ONE (12:26)
--- NOTE | 2016-08-19 13:08 | DS ---
Physical Examination Vital Signs: Vital Signs Temperature 98.6 F 08/19/16 05:52 Pulse Rate 58 L 08/19/16 05:52 Respiratory Rate 20 08/19/16 05:52 Blood Pressure 153/69 08/19/16 05:52 O2 Sat by Pulse Oximetry (%) 95 08/18/16 21:00 Constitutional: Yes: No Distress, Calm, Obese Cardiovascular: Yes: Regular Rate and Rhythm. No: Gallop, Murmur, Rub Respiratory: Yes: Regular, CTA Bilaterally. No: Rales, Rhonchi, Wheezes Gastrointestinal: Yes: Normal Bowel Sounds, Soft. No: Distention, Tenderness Extremities: Yes: WNL Edema: No Labs: CBC, BMP 08/17/16 07:45 08/17/16 07:45 Discharge Summary Reason For Visit: URINARY TRACT INFECTION,DIZZINESS,DIARRHEA,ABD EVIE Current Active Problems Abdominal pain (Acute) Diarrhea (Acute) Food poisoning (Acute) Nausea and vomiting (Acute) Obese (Acute) Psychological and behavioral factors associated with disorders or diseases classified elsewhere (Acute) UTI (urinary tract infection) (Acute) Vision changes (Acute) Hospital Course: (1) Diarrhea Code(s): R19.7 - DIARRHEA, UNSPECIFIED (2) UTI (urinary tract infection) (3) HTN (hypertension) Code(s): I10 - ESSENTIAL (PRIMARY) HYPERTENSION Qualifiers: Hypertension type: essential hypertension Qualified Code(s): I10 - Essential (primary) hypertension (4) Anxiety Code(s): F41.9 - ANXIETY DISORDER, UNSPECIFIED (5) Vision changes Code(s): H53.9 - UNSPECIFIED VISUAL DISTURBANCE Ms Padron is an 81 year old female who comes in with diarrhea after eating a tuna fish sandwich. She was admitted and stool studies were sent. All were negative. She was given pepto-bismol with good results. She was also found to have a UTI and was treated with rocephin. She tolerated this and finished a full course. She was seen by cardiology secondary to hypertension, she was started on amlodipine. She would often not take the amlodipine as she felt it made her feel bad, she agreed to take it 5mg bid. Currently she is safe for discharge home. 35 minutes spent in preparation of this discharge Condition: Stable - Instructions Diet, Activity, Other Instructions: resume previous diet and activity Referrals: Raleigh Sanchez MD [Staff Physician] - Kristopher Davis MD [Primary Care Provider] - Disposition: HOME - Home Medications Comprehensive Discharge Medication List: Ambulatory Orders Diazepam [Valium] 2 mg PO TID PRN #0 tablet 05/17/15 Cyanocobalamin Vit B-12 Inj. 1,000 IM MONTHLY 08/11/16 Mag Hydrox/Al Hydrox/Simeth [Mylanta Oral Suspension -] 30 ml PO Q6H PRN #0 cup 08/16/16 Amlodipine Besylate [Norvasc -] 5 mg PO BID #60 tablet 08/19/16
--- NOTE | 2016-08-19 13:41 | PN ---
Progress Note, Physician History of Present Illness: The patient is an 81 year old white female, with a significant past medical history of HTN, Afib (on Eliquis), [place] (2015), CVA (2015), diverticulitis s/p resection with colostomy bag and breast CA s/p right mastectomy, anxiety, who presents to the emergency department with nausea, vomiting, diarrhea and abdominal pain for the past 4 days. The patient reports that she ate tuna fish for lunch 4 days ago. After eating the tuna fish, the patient reports that she began feeling nauseous, began vomiting and experiencing abdominal pain, worst in the RLQ. The patient additionally reports multiple episodes of diarrhea and increased output into her colostomy bag. The patient reports that the nausea and vomiting have since resolved, although the diarrhea and abdominal pain has persisted. She additionally reports feeling generally weak over the past 4 days. Her PCP prescribed Loperamide for the diarrhea, but she reports no relief of symptoms. She presents to the ED today because of the weakness she has been experiencing and because of the persistent diarrhea and RLQ abdominal pain. The [facility] home health aide is with her in the ED. The patient denies fever, chills, cough, dysuria or any recent illnesses. Allergies: Sulfa, Atropine, Nitrofurantoin, Nitrofurantoin Macrocrystalline, Pantoprazole Sodium, Venlafaxine HCl, Clindamycin, Clonazepam, Digoxin, Escitalopram Oxalate, Famotidine, Furosemide, Gatifloxacin, Gentamicin, Hydroxyzine HCl, Hydroxyzine Pamoate, Levofloxacin, Metoprolol Succinate, Moxifloxacin HCl, Mupirocin, Paroxetine HCl, Sertraline HCl, Sotalol, Tramadol HCl Past Surgical History: Breast CA s/p Right Mastectomy, Diverticulitis s/p Resection w/ Colostomy Bag. Social History: Non smoker. Denies alcohol or drug use. PCP: Dr. Davis - Current Medication List Current Medications: Active Medications Al Hydroxide/Mg Hydroxide (Mylanta Oral Suspension -) 30 ml PO Q6H PRN PRN Reason: INDIGESTION Last Admin: 08/17/16 16:20 Dose: 30 ml Amlodipine Besylate (Norvasc -) 10 mg PO DAILY CECILE Last Admin: 08/19/16 12:10 Dose: Not Given Bismuth Subsalicylate (Pepto-Bismol Liquid -) 30 ml PO Q6H PRN PRN Reason: INDIGESTION/DIARRHEA Last Admin: 08/15/16 03:23 Dose: 30 ml Ondansetron HCl (Zofran Injection) 4 mg IVPB Q6H PRN PRN Reason: NAUSEA - Objective Vital Signs: Vital Signs Temperature 98.6 F 08/19/16 05:52 Pulse Rate 58 L 08/19/16 05:52 Respiratory Rate 20 08/19/16 05:52 Blood Pressure 153/69 08/19/16 05:52 O2 Sat by Pulse Oximetry (%) 95 08/18/16 21:00 Eyes: Yes: WNL, Conjunctiva Clear, EOM Intact HENT: Yes: WNL, Atraumatic, Normocephalic Neck: Yes: WNL, Supple, Trachea Midline Cardiovascular: Yes: Pulse Irregular, S1, S2 Respiratory: Yes: WNL, Regular, CTA Bilaterally Gastrointestinal: Yes: WNL, Normal Bowel Sounds Genitourinary: Yes: WNL Musculoskeletal: Yes: WNL Extremities: Yes: WNL Edema: No Integumentary: Yes: WNL Neurological: Yes: WNL, Alert, Oriented ...Motor Strength: WNL Psychiatric: Yes: WNL Labs: CBC, BMP 08/17/16 07:45 08/17/16 07:45 Assessment/Plan (1) Abdominal pain Code(s): R10.9 - UNSPECIFIED ABDOMINAL PAIN (2) Diarrhea Code(s): R19.7 - DIARRHEA, UNSPECIFIED (3) Anxiety Code(s): F41.9 - ANXIETY DISORDER, UNSPECIFIED (4) Atrial fibrillation Assessment/Plan: Pt refuses taking systemic anticoagulation or AV conduction melodie. Code(s): I48.91 - UNSPECIFIED ATRIAL FIBRILLATION Qualifiers: Atrial fibrillation type: persistent Qualified Code(s): I48.1 - Persistent atrial fibrillation (5) Back pain Code(s): M54.9 - DORSALGIA, UNSPECIFIED Qualifiers: Back pain location: back pain in unspecified location Chronicity: unspecified (6) CAD (coronary artery disease) Code(s): I25.10 - ATHSCL HEART DISEASE OF [place] CORONARY ARTERY W/O ANG PCTRS Qualifiers: Coronary Disease-Associated Artery/Lesion type: [place] artery [place] vs. transplanted heart: [place] heart Associated angina: without angina Qualified Code(s): I25.10 - Atherosclerotic heart disease of [place] coronary artery without angina pectoris (7) Cerebrovascular accident (CVA) Code(s): I63.9 - CEREBRAL INFARCTION, UNSPECIFIED (8) Chest pain Code(s): R07.9 - CHEST PAIN, UNSPECIFIED (9) Dizziness Code(s): R42 - DIZZINESS AND GIDDINESS (10) HTN (hypertension) Assessment/Plan: Pt now agreed to restart amlodipine 5 mg daily earlier today; with BP still elevated (and the risks of uncontrolled BP discussed in detail), she also agreed to return to 10 mg daily, with an additional 5 mg dose now. Code(s): I10 - ESSENTIAL (PRIMARY) HYPERTENSION Qualifiers: Hypertension type: essential hypertension Qualified Code(s): I10 - Essential (primary) hypertension (11) Hypercholesteremia Assessment/Plan: LDL nearly 200 in 2015. F/u lipid panel; pt should ideally be on statin, modify diet, lose weight, and increase exercise. Code(s): E78.0 - PURE HYPERCHOLESTEROLEMIA * DO NOT USE * (12) Sensitivity to chemical Code(s): T78.40XA - ALLERGY, UNSPECIFIED, INITIAL ENCOUNTER (13) Obese Code(s): E66.9 - OBESITY, UNSPECIFIED (14) Psychological and behavioral factors associated with disorders or diseases classified elsewhere Assessment/Plan: psychological counseling would be of benefit. Code(s): F54 - PSYCH & BEHAVRL FACTORS ASSOC W DISORD OR DIS CLASSD [id number]
[2016-08-19 14:13] VITALS: BP 142/72; PULSE 71; TEMP 98.5
== END 2016-08-19 18:06 | disposition home or self-care (01) | DRG 690 ==
LOC: SUPCPDRO 19:13 → JER 19:13 → JERBED 08-11 06:39 → UNDOADMIN 08-11 06:44 → J5S 08-11 08:34 → J7W 08-18 14:12
PROVIDERS: ADMIT Specialist; ATTEND Specialist
DX: N39.0 Urinary tract infection, site not specified (principal); I10 Essential (primary) hypertension; I48.91 Unspecified atrial fibrillation; I25.2 Old myocardial infarction; E78.5 Hyperlipidemia, unspecified; I25.10 Atherosclerotic heart disease of native coronary artery without angina pectoris; T61.771A Other fish poisoning, accidental (unintentional), initial encounter; Y92.098 Other place in other non-institutional residence as the place of occurrence of the external cause; F41.8 Other specified anxiety disorders; K57.90 Diverticulosis of intestine, part unspecified, without perforation or abscess without bleeding; M54.9 Dorsalgia, unspecified; K52.89 Other specified noninfective gastroenteritis and colitis; H53.9 Unspecified visual disturbance; E66.8 Other obesity; E86.0 Dehydration; F60.3 Borderline personality disorder; Z85.3 Personal history of malignant neoplasm of breast; Z86.73 Personal history of transient ischemic attack (TIA), and cerebral infarction without residual deficits; Z87.442 Personal history of urinary calculi; Z68.33 Body mass index [BMI] 33.0-33.9, adult; Z71.3 Dietary counseling and surveillance
CPT/HCPCS: 36415; 70450-TC; 71010-TC; 74176-TC; 80048; 80053; 80061; 81003; 81015; 82550; 82607; 83690; 83721; 83735; 84100; 84484; 85025; 87045; 87046; 87177; 87207; 87209; 87324; 87328; 87329; 87449; 93005; 93010; 97116-GP; 97161-GP; 99283-25

== ENCOUNTER 2016-09-12 20:35 | Observation (INO) | payer OTHER ==
--- NOTE | 2016-09-12 20:38 | PDOC ---
Rapid Medical Evaluation Time Seen by Provider: 09/12/16 20:37 Medical Evaluation: Allergies Allergy/AdvReac Type Severity Reaction Status Date / Time Sulfa (Sulfonamide Allergy Unknown Verified 08/10/16 19:26 Antibiotics) [Sulfa(Sulfonamide Antibiotics)] atropine Allergy Verified 08/10/16 19:26 nitrofurantoin Allergy Verified 08/10/16 19:26 [From Macrobid] nitrofurantoin Allergy Verified 08/10/16 19:26 macrocrystalline [From Macrobid] pantoprazole sodium Allergy Verified 08/10/16 19:26 [From Protonix] venlafaxine HCl Allergy Verified 08/10/16 19:26 [From Effexor] clindamycin AdvReac Verified 08/10/16 19:26 clonazepam AdvReac Verified 08/10/16 19:26 digoxin AdvReac Verified 08/10/16 19:26 escitalopram oxalate AdvReac Verified 08/10/16 19:26 [From Lexapro] famotidine AdvReac Verified 08/10/16 19:26 furosemide [From Lasix] AdvReac Verified 08/10/16 19:26 gatifloxacin [From Tequin] AdvReac Verified 08/10/16 19:26 gentamicin [Gentamicin] AdvReac Verified 08/10/16 19:26 hydroxyzine HCl AdvReac Verified 08/10/16 19:26 [From Vistaril] hydroxyzine pamoate AdvReac Verified 08/10/16 19:26 [From Vistaril] levofloxacin [From Levaquin] AdvReac Verified 08/10/16 19:26 metoprolol succinate AdvReac Verified 08/10/16 19:26 [From Toprol XL] moxifloxacin HCl AdvReac Verified 08/10/16 19:26 [From Avelox] mupirocin AdvReac Verified 08/10/16 19:26 paroxetine HCl [From Paxil] AdvReac Verified 08/10/16 19:26 sertraline HCl [From Zoloft] AdvReac Verified 08/10/16 19:26 sotalol [Sotalol] AdvReac Verified 08/10/16 19:26 tramadol HCl [From Ultram] AdvReac Verified 08/10/16 19:26 03/23/17 20:38 81 year old female HTN, HLD, CAD with reported prior [place] 2014, Pafib previously on Eliquis, CVA 2015, h/o diverticulitis with colostomy, breast ca s/p mastectomy who presents complaining of vomiting x 3, weakness, and dizziness ( "room spinning") which started this evening. V/s notable for BP 163/97. -EKG -Cardiac labs -To Main ED for further evaluation
[2016-09-12 20:45] VITALS: BMI 34.2
[2016-09-12 21:11] LABS: URINE APPEARANCE CLEAR; URINE BILIRUBIN NEGATIVE (NEGATIVE); URINE BLOOD 1+ (NEGATIVE); URINE COLOR COLORLESS; URINE GLUCOSE (UA) NEGATIVE (NEGATIVE); URINE KETONE NEGATIVE (NEGATIVE); URINE LEUK ESTERASE 1+ (NEGATIVE); URINE NITRITE NEGATIVE (NEGATIVE); URINE PROTEIN 2+ (NEGATIVE); URINE UROBILINOGEN NEGATIVE E.U./dl (0.2-1.0)
[2016-09-12 21:13] LABS: URINE MUCUS RARE; URINE RBC 3 /hpf (0-3); URINE WBC 23 /hpf (3-5)
--- NOTE | 2016-09-12 21:35 | PDOC ---
History of Present Illness - General History Source: Patient <Sonu Desouza - Last Filed: 09/12/16 23:42> - General History Source: Patient, Old Records Exam Limitations: No Limitations - History of Present Illness Initial Comments: 09/12/16 21:43 The patient is a 81 year old female with a significant past medical history of HTN, Afib (on Eliquis), [place] (2014), CVA (2015), diverticulitis, and breast cancer s/p right mastectomy, and recent UTI, who presents to the emergency department today for further evaluation of vomiting x 3, diarrhea, headache, weakness, and dizziness ("room spinning") which started this evening. The patient reports that today she felt foggy before onset of symptoms. The patient also notes that she has had intermittent blurred vision for the past few months. The patient denies any fall or head trauma. The patient denies fever, chills, and sweats. The patient denies chest pain, cough, and shortness of breath. PCP: Dr. Kristopher Davis [phone] <Dannie Kruse - Last Filed: 09/12/16 23:59> - General Chief Complaint: Lightheaded Stated Complaint: DIZZINESS Time Seen by Provider: 09/12/16 20:37 Past History - Past Medical History Anemia: Yes Asthma: Yes (induced) Cancer: Yes (RT BREAST STATUS post partial mastectomy) Cardiac Disorders: Yes ([place] 2014) CVA: Yes (2015) COPD: No CHF: No Dementia: No Diabetes: Yes (pre- diabetes) GI Disorders: Yes (diverticulitis) Disorders: No HTN: Yes Hypercholesterolemia: Yes Kidney Stones: Yes Liver Disease: No Suicide Attempt (Hx): No Seizures: No Thyroid Disease: No - Surgical History Abdominal Surgery: Yes (COLOSTOMY 13 years size 2 1/2 "pt does self care) Appendectomy: No Cardiac Surgery: No Cholecystectomy: No Lung Surgery: No Neurologic Surgery: No Orthopedic Surgery: No - Immunization History Immunization Up to Date: Yes - Psycho/Social/Smoking Cessation Hx Anxiety: No Suicidal Ideation: No Smoking Status: No Smoking History: Never smoked Have you smoked in the past 12 months: No Number of Cigarettes Smoked Daily: 0 Cigars Per Day: 0 Hx Alcohol Use: No Drug/Substance Use Hx: No Substance Use Type: None Hx Substance Use Treatment: No <Sonu Desouza - Last Filed: 09/12/16 23:42> <Dannie Kruse - Last Filed: 09/12/16 23:59> - Past Medical History Allergies/Adverse Reactions: Allergies Allergy/AdvReac Type Severity Reaction Status Date / Time Sulfa (Sulfonamide Allergy Unknown Verified 09/12/16 20:42 Antibiotics) [Sulfa(Sulfonamide Antibiotics)] atropine Allergy Verified 09/12/16 20:42 nitrofurantoin Allergy Verified 09/12/16 20:42 [From Macrobid] nitrofurantoin Allergy Verified 09/12/16 20:42 macrocrystalline [From Macrobid] pantoprazole sodium Allergy Verified 09/12/16 20:42 [From Protonix] venlafaxine HCl Allergy Verified 09/12/16 20:42 [From Effexor] clindamycin AdvReac Verified 09/12/16 20:42 clonazepam AdvReac Verified 09/12/16 20:42 digoxin AdvReac Verified 09/12/16 20:42 escitalopram oxalate AdvReac Verified 09/12/16 20:42 [From Lexapro] famotidine AdvReac Verified 09/12/16 20:42 furosemide [From Lasix] AdvReac Verified 09/12/16 20:42 gatifloxacin [From Tequin] AdvReac Verified 09/12/16 20:42 gentamicin [Gentamicin] AdvReac Verified 09/12/16 20:42 hydroxyzine HCl AdvReac Verified 09/12/16 20:42 [From Vistaril] hydroxyzine pamoate AdvReac Verified 09/12/16 20:42 [From Vistaril] levofloxacin [From Levaquin] AdvReac Verified 09/12/16 20:42 metoprolol succinate AdvReac Verified 09/12/16 20:42 [From Toprol XL] moxifloxacin HCl AdvReac Verified 09/12/16 20:42 [From Avelox] mupirocin AdvReac Verified 09/12/16 20:42 paroxetine HCl [From Paxil] AdvReac Verified 09/12/16 20:42 sertraline HCl [From Zoloft] AdvReac Verified 09/12/16 20:42 sotalol [Sotalol] AdvReac Verified 09/12/16 20:42 tramadol HCl [From Ultram] AdvReac Verified 09/12/16 20:42 Home Medications: Ambulatory Orders Diazepam [Valium] 2 mg PO TID PRN #0 tablet 05/17/15 Cyanocobalamin Vit B-12 Inj. 1,000 mg IM MONTHLY 08/11/16 Mag Hydrox/Al Hydrox/Simeth [Mylanta Oral Suspension -] 30 ml PO Q6H PRN #0 cup 08/16/16 Amlodipine Besylate [Norvasc -] 5 mg PO BID #60 tablet 08/19/16 Review of Systems - Review of Systems Able to Perform ROS?: Yes Comments:: 09/12/16 21:43 CONSTITUTIONAL: Present: weakness Absent: fever, chills, diaphoresis, malaise, loss of appetite HEENT: Present: blurred vision Absent: rhinorrhea, nasal congestion, throat pain, throat swelling, difficulty swallowing, mouth swelling, ear pain, eye pain, CARDIOVASCULAR: Absent: chest pain, syncope, palpitations, irregular heart rate, lightheadedness , peripheral edema RESPIRATORY: Absent: cough, shortness of breath, dyspnea with exertion, orthopnea, wheezing, stridor, hemoptysis GASTROINTESTINAL: Absent: abdominal pain, abdominal distension, nausea, vomiting, diarrhea, constipation, melena, hematochezia GENITOURINARY: Absent: dysuria, frequency, urgency, hesitancy, hematuria, flank pain, genital pain MUSCULOSKELETAL: Absent: myalgia, arthralgia, joint swelling SKIN: Absent: rash, itching, pallor HEMATOLOGIC/IMMUNOLOGIC: Absent: easy bleeding, easy bruising, lymphadenopathy, frequent infections ENDOCRINE: Absent: unexplained weight gain, unexplained weight loss, heat intolerance, cold intolerance NEUROLOGIC: Present: headache, dizziness, fogginess Absent: paresthesias, seizure, mental status changes, bladder or bowel incontinence PSYCHIATRIC: Absent: anxiety, depression, suicidal or homicidal ideation, hallucinations. <Dannie Kruse - Last Filed: 09/12/16 23:59> *Physical Exam - Vital Signs Last Vital Signs Temp Pulse Resp BP Pulse Ox 97.6 F 77 20 163/97 95 09/12/16 20:42 09/12/16 20:42 09/12/16 20:42 09/12/16 20:42 09/12/16 20:42 <SinisterraSonu - Last Filed: 09/12/16 23:42> - Vital Signs Last Vital Signs Temp Pulse Resp BP Pulse Ox 97.6 F 77 20 163/97 95 09/12/16 20:42 09/12/16 20:42 09/12/16 20:42 09/12/16 20:42 09/12/16 20:42 - Physical Exam Comments: 09/12/16 21:43 GENERAL: Well developed, well nourished. Awake and alert. In no acute distress. HEENT: Normocephalic, atraumatic. PERRLA, EOMI. No conjunctival pallor. Sclerae are non -icteric. Moist mucous membranes. Oropharynx is clear. NECK: Supple. Full ROM. No JVD. Carotid pulses 2+ and symmetric, without bruits. No thyromegaly. No lymphadenopathy. CARDIOVASCULAR: Regular rate and rhythm. No murmurs, rubs, or gallops. Distal pulses are 2+ and symmetric. PULMONARY: No evidence of respiratory distress. Lungs clear to auscultation bilaterally. No wheezing, rales or rhonchi. ABDOMINAL: Soft. Non-tender. Non-distended. No rebound or guarding. No organomegaly. Normoactive bowel sounds. MUSCULOSKELETAL Normal range of motion at all joints. No bony deformities or tenderness. No CVA tenderness. EXTREMITIES: No cyanosis. No clubbing. No edema. No calf tenderness. SKIN: Warm and dry. Normal capillary refill. No rashes. No jaundice. NEUROLOGICAL: Alert, awake, appropriate. Cranial nerves 2-12 intact. No deficits to light touch and temperature in face, upper extremities and lower extremities. No motor deficits in the in face, upper extremities and lower extremities. Normoreflexic in the upper and lower extremities. Normal speech. Toes are downgoing bilaterally. Gait is normal without ataxia. PSYCHIATRIC: Cooperative. Good eye contact. Appropriate mood and affect <Dannie Kruse - Last Filed: 09/12/16 23:59> Heart Score/ECG Review - ECG Impressions Comment:: 09/12/16 23:58 ECG IMPRESSION: Normal sinus rhythm, possible anterior infarct, age undetermined. Abnormal ECG. <Dannie Kruse - Last Filed: 09/12/16 23:59> ED Treatment Course - LABORATORY CBC & Chemistry Diagram: 03/23/17 21:40 09/12/16 21:40 - ADDITIONAL ORDERS Additional order review: Laboratory Results 09/12/16 20:55 Urine Color Colorless Urine Appearance Clear Urine pH 6.0 Ur Specific [place] 1.006 Urine Protein 2+ H Urine Glucose (UA) Negative Urine Ketones Negative Urine Blood 1+ H Urine Nitrite Negative Urine Bilirubin Negative Urine Urobilinogen Negative Ur Leukocyte Esterase 1+ H Urine RBC 3 Urine WBC 23 Ur Epithelial Cells Few Urine Mucus Rare - RADIOLOGY Radiology Studies Ordered: Category Date Time Status HEAD CT WITHOUT CONTRAST [CT] Stat CT Scan 09/12/16 21:26 Ordered CHEST X-RAY PORTABLE* [RAD] Stat Radiology 09/12/16 21:25 Ordered <Sonu Desouza - Last Filed: 09/12/16 23:42> - LABORATORY CBC & Chemistry Diagram: 09/12/16 21:40 09/12/16 21:40 - ADDITIONAL ORDERS Additional order review: Laboratory Results 09/12/16 20:55 Urine Color Colorless Urine Appearance Clear Urine pH 6.0 Ur Specific [place] 1.006 Urine Protein 2+ H Urine Glucose (UA) Negative Urine Ketones Negative Urine Blood 1+ H Urine Nitrite Negative Urine Bilirubin Negative Urine Urobilinogen Negative Ur Leukocyte Esterase 1+ H Urine RBC 3 Urine WBC 23 Ur Epithelial Cells Few Urine Mucus Rare <Dannie Kruse - Last Filed: 09/12/16 23:59> Medical Decision Making - Medical Decision Making 09/12/16 23:41 Dr. Desouza: The scribe's documentation has been prepared under my direction and personally reviewed by me in its entirery. I confirm that the note above accurately reflects all work, treatment, procedures, and medical decision making performed by me. 09/12/16 23:42 Pt with UTI. Pt was admitted for same last month. Will admit to [facility] Obs <Sonu Desouza - Last Filed: 09/12/16 23:42> - Medical Decision Making 09/12/16 23:22 1st call placed to Dr. Kristopher Davis's service. Awaiting a call back. <Dannie Kruse - Last Filed: 09/12/16 23:59> *DC/Admit/Observation/Transfer - Discharge Dispostion Admit: Yes <Sonu Desouza - Last Filed: 09/12/16 23:42> - Attestations Scribe Attestion: 09/12/16 21:43 Documentation prepared by Dannie Kruse, acting as medical records technician for Sonu Desouza MD. <Dannie Kruse - Last Filed: 09/12/16 23:59> Diagnosis at time of Disposition: UTI (urinary tract infection), Dizziness - Discharge Dispostion Condition at time of disposition: Stable - Referrals Referrals: Kristopher Davis MD [Primary Care Provider] -
[2016-09-12] MEDS ORDERED: SODIUM CHLORIDE 1,000 ML IV SCH (22:15)
[2016-09-12 22:32] LABS: BASOPHIL 0.3 % (0-2.0); EOSINOPHIL 0.3 % (0-4.5); MCH 28.9 pg (25.7-33.7); MCHC 33.1 g/dl (32.0-36.0); MEAN CELL VOLUME 87.1 fl (80-96); MEAN PLT VOLUME 8.2 fl (7.5-11.1); NEUTROPHILS 85.4 % (42.8-82.8); PLATELET COUNT 211 K/MM3 (134-434); RDW 13.9 % (11.6-15.6); WHITE BLOOD COUNT 10.4 K/mm3 (4.0-10.0)
[2016-09-12 23:03] LABS: ALBUMIN 3.8 g/dl (3.4-5.0); CALCIUM 8.7 mg/dL (8.5-10.1); MAGNESIUM 1.9 mg/dL (1.8-2.4)
[2016-09-12 23:08] LABS: BILIRUBIN,TOTAL 0.5 mg/dL (0.2-1.0); TOT PROT 7.5 g/dl (6.4-8.2); TROPONIN I 0.02 ng/ml (0.00-0.05)
--- NOTE | 2016-09-13 00:06 | PN ---
<Marbella López - Last Filed: 09/13/16 00:05> Teaching Attending Note Name of Resident: Yuri Marinelli <Gosia Hernandez - Last Filed: 09/13/16 01:56> Teaching Attending Note ATTENDING PHYSICIAN STATEMENT I saw and evaluated the patient. I reviewed the resident's note and discussed the case with the resident. I agree with the resident's findings and plan as documented. SUBJECTIVE: 81 yo F with PMHx of recent UTI who presents to the ED with 3 days of weakness with vomiting, diarrhea and dizziness. The patient describes her dizziness as room spins however denies any falls/head trauma. The patient associates her dizziness with headache and intermittent blurry vision. She denies chest pain, fever, chills or constipation. She denies dysuria, frequency, urgency or hematuria. She presents to the ED for further evaluation. PMHx: HTN, Afib (on Eliquis), [place] (2014), CVA (2014), diverticulitis, and breast cancer s/p right mastectomy PSHx: colostomy 13 years ago, R mastectomy Social Hx: Denies OBJECTIVE: Last Vital Signs Temp Pulse Resp BP Pulse Ox 97.6 F 77 20 163/97 95 09/12/16 20:42 09/12/16 20:42 09/12/16 20:42 09/12/16 20:42 09/12/16 20:42 GENERAL: Awake, alert, and fully oriented, in no acute distress HEENT: Atraumatic. PERRLA, EOMI. Moist mucosa. No JVD LUNGS: No distress, speaks full sentences, clear to auscultation bilaterally HEART: Regular rate and rhythm, normal S1 and S2, no murmurs, rubs or gallops, peripheral pulses normal and equal bilaterally. ABDOMEN:+R CVA tenderness. +Lsided colostomy bag. +L CVA Tenderness Soft, nontender, normoactive bowel sounds. No guarding, no rebound. No masses EXTREMITIES:+Trace edema on RLE Normal inspection, Normal range of motion. No clubbing or cyanosis. NEUROLOGICAL: Cranial nerves II through XII grossly intact. Normal speech, normal gait, no focal sensorimotor deficits SKIN: Warm, Dry, normal turgor, no rashes or lesions noted. CBCD WBC 10.4 K/mm3 (4.0-10.0) H D 09/12/16 21:40 RBC 4.51 M/mm3 (3.60-5.2) 09/12/16 21:40 Hgb 13.0 GM/dL (10.7-15.3) D 09/12/16 21:40 Hct 39.3 % (32.4-45.2) 09/12/16 21:40 MCV 87.1 fl (80-96) 09/12/16 21:40 MCHC 33.1 g/dl (32.0-36.0) 09/12/16 21:40 RDW 13.9 % (11.6-15.6) 09/12/16 21:40 Plt Count 211 K/MM3 (134-434) 09/12/16 21:40 MPV 8.2 fl (7.5-11.1) 09/12/16 21:40 CMP Sodium 143 mmol/L (136-145) 09/12/16 21:40 Potassium 3.7 mmol/L (3.5-5.1) 09/12/16 21:40 Chloride 108 mmol/L (98-107) H 09/12/16 21:40 Carbon Dioxide 24 mmol/L (21-32) 09/12/16 21:40 Anion Gap 11 (8-16) 09/12/16 21:40 BUN 20 mg/dL (7-18) H D 09/12/16 21:40 Creatinine 1.0 mg/dL (0.55-1.02) 09/12/16 21:40 Creat Clearance w eGFR 53.21 (>60) 09/12/16 21:40 Calcium 8.7 mg/dL (8.5-10.1) 09/12/16 21:40 Total Bilirubin 0.5 mg/dL (0.2-1.0) 09/12/16 21:40 AST 31 U/L (15-37) 09/12/16 21:40 ALT 41 U/L (12-78) 09/12/16 21:40 Alkaline Phosphatase 105 U/L (45-117) D 09/12/16 21:40 Total Protein 7.5 g/dl (6.4-8.2) 09/12/16 21:40 Albumin 3.8 g/dl (3.4-5.0) 09/12/16 21:[address] Impression: No CT evidence of acute intracranial pathology. ASSESSMENT AND PLAN: 1.)UTI -IVF -Ceftriaxone 1 g daily -Follow UC -Tylenol PRN Admitted for observation. If stable can be discharged in the AM Documentation prepared by Gosia Hernandez, acting as medical insurance clerk for Marbella López MD, MD.
[2016-09-13] MEDS ORDERED: CEFTRIAXONE 50 ML ONE (00:34)
--- NOTE | 2016-09-13 00:44 | HP ---
CHIEF COMPLAINT: diarrhea, vomiting, weakness PCP: Dr. Davis HISTORY OF PRESENT ILLNESS: 81 y/o F w/PMH of HTN, a-fib,OK (2015), CVA (2015), diverticulitis (s/p colostomy 13 years ago), breast ca s/p r mastectomy, non-compliant with meds presents to ER with c/o of nausea and vomiting and diarrhea since this evening. She had 3 episodes of vomiting along with dizziness. Vomit was non-bloody. She has also had diarrhea which is not bloody. She states she ate week old clam chowder today and symptoms started a few hours after eating this clam chowder. Currently feels like she is still dizzy and c/o chronic vision changes but no acute changes. She feels like she has the shakes at this time because of reaction to normal saline to which I explained that the NS is unlikely to be causing her symptoms but she insisted it be stopped and I stopped the NS. At this point patient became anxious and I offered her valium and benadryl, both of which she refused. She appears to be comfortable when I not in her vicinity and becomes anxious again when I come to talk to her. She also attempted to go to the bathroom despite me telling her multiple times to wait for nurse blood coordinator. She has stopped taking eliquis for over 6 months now and is not taking any other medications at this time although she has been prescribed medications by her PCP Dr. Davis. ER course was notable for: (1) Head CT, CXR, rocephin, NS (2) (3) PAST MEDICAL HISTORY:HTN, a-fib,OK (2015), CVA (2015), diverticulitis (s/p colostomy 13 years ago), breast ca s/p r mastectomy PAST SURGICAL HISTORY: colostomy 13 years ago, r mastectomy Social History: Smoking: denies Alcohol: denies Drugs: denies Family History: pt did not answer about family history Allergies Sulfa (Sulfonamide Antibiotics) [Sulfa(Sulfonamide Antibiotics)] Allergy ( Unknown, Verified 09/12/16 20:42) atropine Allergy (Verified 09/12/16 20:42) nitrofurantoin [From Macrobid] Allergy (Verified 09/12/16 20:42) nitrofurantoin macrocrystalline [From Macrobid] Allergy (Verified 09/12/16 20:42 ) pantoprazole sodium [From Protonix] Allergy (Verified 09/12/16 20:42) venlafaxine HCl [From Effexor] Allergy (Verified 09/12/16 20:42) clindamycin Adverse Reaction (Verified 09/12/16 20:42) clonazepam Adverse Reaction (Verified 09/12/16 20:42) digoxin Adverse Reaction (Verified 09/12/16 20:42) escitalopram oxalate [From Lexapro] Adverse Reaction (Verified 09/12/16 20:42) famotidine Adverse Reaction (Verified 09/12/16 20:42) furosemide [From Lasix] Adverse Reaction (Verified 09/12/16 20:42) gatifloxacin [From Tequin] Adverse Reaction (Verified 09/12/16 20:42) gentamicin [Gentamicin] Adverse Reaction (Verified 09/12/16 20:42) hydroxyzine HCl [From Vistaril] Adverse Reaction (Verified 09/12/16 20:42) hydroxyzine pamoate [From Vistaril] Adverse Reaction (Verified 09/12/16 20:42) levofloxacin [From Levaquin] Adverse Reaction (Verified 09/12/16 20:42) metoprolol succinate [From Toprol XL] Adverse Reaction (Verified 09/12/16 20:42) moxifloxacin HCl [From Avelox] Adverse Reaction (Verified 09/12/16 20:42) mupirocin Adverse Reaction (Verified 09/12/16 20:42) paroxetine HCl [From Paxil] Adverse Reaction (Verified 09/12/16 20:42) sertraline HCl [From Zoloft] Adverse Reaction (Verified 09/12/16 20:42) sotalol [Sotalol] Adverse Reaction (Verified 09/12/16 20:42) tramadol HCl [From Ultram] Adverse Reaction (Verified 09/12/16 20:42) HOME MEDICATIONS: Home Medications Medication Instructions Recorded Diazepam [Valium] 2 mg PO TID PRN #0 tablet 05/17/15 Cyanocobalamin Vit B-12 Inj. 1,000 mg IM MONTHLY 08/11/16 Mag Hydrox/Al Hydrox/Simeth 30 ml PO Q6H PRN #0 cup 08/16/16 [Mylanta Oral Suspension -] Amlodipine Besylate [Norvasc -] 5 mg PO BID #60 tablet 08/19/16 REVIEW OF SYSTEMS CONSTITUTIONAL: generalized weakness Absent: fever, chills, diaphoresis,malaise, loss of appetite, weight change HEENT: chronic vision changes Absent: rhinorrhea, nasal congestion, throat pain, throat swelling, difficulty swallowing, mouth swelling, ear pain, eye pain CARDIOVASCULAR: Absent: chest pain, syncope, palpitations, irregular heart rate, lightheadedness , peripheral edema RESPIRATORY: Absent: cough, shortness of breath, dyspnea with exertion, orthopnea, wheezing, stridor, hemoptysis GASTROINTESTINAL: nausea, vomiting, diarrhea Absent: abdominal pain, abdominal distension, constipation, melena, hematochezia GENITOURINARY: Absent: dysuria, frequency, urgency, hesitancy, hematuria, flank pain, genital pain MUSCULOSKELETAL: Absent: myalgia, arthralgia, joint swelling, back pain, neck pain SKIN: Absent: rash, itching, pallor HEMATOLOGIC/IMMUNOLOGIC: Absent: easy bleeding, easy bruising, lymphadenopathy, frequent infections ENDOCRINE: Absent: unexplained weight gain, unexplained weight loss, heat intolerance, cold intolerance NEUROLOGIC: dizziness Absent: headache, focal weakness or paresthesias, unsteady gait, seizure, mental status changes, bladder or bowel incontinence PSYCHIATRIC: Absent: anxiety, depression, suicidal or homicidal ideation, hallucinations. Vital Signs Temperature 97.6 F 09/12/16 20:42 Pulse Rate 77 09/12/16 20:42 Respiratory Rate 20 09/12/16 20:42 Blood Pressure 163/97 09/12/16 20:42 O2 Sat by Pulse Oximetry (%) 95 09/12/16 20:42 PHYSICAL EXAMINATION GENERAL: Awake, alert, and fully oriented, in no acute distress. Extremely anxious. HEAD: Normal with no signs of trauma. EYES: extraocular movements intact, sclera anicteric, conjunctiva clear. No lid lag. EARS, NOSE, THROAT: Ears normal, nares patent, oropharynx clear without exudates. Moist mucous membranes. NECK: Normal range of motion, supple without lymphadenopathy, JVD, or masses. LUNGS: Breath sounds equal, clear to auscultation bilaterally. No wheezes, and no crackles. No accessory muscle use. HEART: Regular rate and rhythm, normal S1 and S2 without murmur, rub or gallop. ABDOMEN: Obese, soft, nontender, not distended, normoactive bowel sounds, no guarding, no rebound, no masses. No hepatomegaly or splenomegaly. MUSCULOSKELETAL: Normal range of motion at all joints. No bony deformities or tenderness. LOWER EXTREMITIES: warm, well-perfused. No calf tenderness. 2+ edema NEUROLOGICAL: Normal speech.Gait not observed. PSYCHIATRIC: Cooperative. Good eye contact. SKIN: Warm, dry, normal turgor, no rashes or lesions noted, normal capillary refill. CBCD WBC 10.4 K/mm3 (4.0-10.0) H D 09/12/16 21:40 RBC 4.51 M/mm3 (3.60-5.2) 09/12/16 21:40 Hgb 13.0 GM/dL (10.7-15.3) D 09/12/16 21:40 Hct 39.3 % (32.4-45.2) 09/12/16 21:40 MCV 87.1 fl (80-96) 09/12/16 21:40 MCHC 33.1 g/dl (32.0-36.0) 09/12/16 21:40 RDW 13.9 % (11.6-15.6) 09/12/16 21:40 Plt Count 211 K/MM3 (134-434) 09/12/16 21:40 MPV 8.2 fl (7.5-11.1) 09/12/16 21:40 CMP Sodium 143 mmol/L (136-145) 09/12/16 21:40 Potassium 3.7 mmol/L (3.5-5.1) 09/12/16 21:40 Chloride 108 mmol/L (98-107) H 09/12/16 21:40 Carbon Dioxide 24 mmol/L (21-32) 09/12/16 21:40 Anion Gap 11 (8-16) 09/12/16 21:40 BUN 20 mg/dL (7-18) H D 09/12/16 21:40 Creatinine 1.0 mg/dL (0.55-1.02) 09/12/16 21:40 Creat Clearance w eGFR 53.21 (>60) 09/12/16 21:40 Random Glucose 130 mg/dL (74-106) H D 09/12/16 21:40 Calcium 8.7 mg/dL (8.5-10.1) 09/12/16 21:40 Total Bilirubin 0.5 mg/dL (0.2-1.0) 09/12/16 21:40 AST 31 U/L (15-37) 09/12/16 21:40 ALT 41 U/L (12-78) 09/12/16 21:40 Alkaline Phosphatase 105 U/L (45-117) D 09/12/16 21:40 Total Protein 7.5 g/dl (6.4-8.2) 09/12/16 21:40 Albumin 3.8 g/dl (3.4-5.0) 09/12/16 21:40 CARDIAC ENZYMES Creatine Kinase 156 IU/L (26-192) D 09/12/16 21:40 Troponin I 0.02 ng/ml (0.00-0.05) 09/12/16 21:40 Urine Test Results Urine Color Colorless 09/12/16 20:55 Urine Appearance Clear 09/12/16 20:55 Urine pH 6.0 (5.0-8.0) 09/12/16 20:55 Ur Specific [place] 1.006 (1.001-1.035) 09/12/16 20:55 Urine Protein 2+ (NEGATIVE) H 09/12/16 20:55 Urine Glucose (UA) Negative (NEGATIVE) 09/12/16 20:55 Urine Ketones Negative (NEGATIVE) 09/12/16 20:55 Urine Blood 1+ (NEGATIVE) H 09/12/16 20:55 Urine Nitrite Negative (NEGATIVE) 09/12/16 20:55 Urine Bilirubin Negative (NEGATIVE) 09/12/16 20:55 Ur Leukocyte Esterase 1+ (NEGATIVE) H 09/12/16 20:55 Urine RBC 3 /hpf (0-3) 09/12/16 20:55 Urine WBC 23 /hpf (3-5) 09/12/16 20:55 Ur Epithelial Cells Few /hpf (FEW) 09/12/16 20:55 Urine Mucus Rare 09/12/16 20:55 Imaging: CT head: 09/12/16 - no acute pathology ASSESSMENT/PLAN: 81 y/o F w/PMH of HTN, a-fib,OK (2014), CVA (2014), diverticulitis (s/p colostomy 13 years ago), breast ca s/p r mastectomy, non-compliant with meds presents to ER with c/o of nausea and vomiting and diarrhea since this evening after eating week old lori angelo. Also found to have UTI. -Gastroenteritis, bacterial vs viral -NS @ 125 ml/hr -ceftriaxone 1g iv once -UTI -LE 1+, WBC 23 -ceftriaxone 1g iv qd -NS @ 125 ml/hr -Tylenol 650 mg po q6h prn for fever/pain -Uncontrolled HTN -norvasc 5mg po bid -monitor BP -CAD, hx of CVA -ASA 81, statin -A-fib -supposed to be on eliquis -DVT ppx -hep sq tid -FEN -NS @ 125ml/hr -hyperchloremia, mild - monitor -cardiac diet -Dispo: -Monitor in obs Problem List - Problem (1) Dizziness Code(s): R42 - DIZZINESS AND GIDDINESS (3) AMBIKA (acute kidney injury) Code(s): N17.9 - ACUTE KIDNEY FAILURE, UNSPECIFIED (4) Abdominal pain Code(s): R10.9 - UNSPECIFIED ABDOMINAL PAIN (5) Anxiety Code(s): F41.9 - ANXIETY DISORDER, UNSPECIFIED (6) Atrial fibrillation Code(s): I48.91 - UNSPECIFIED ATRIAL FIBRILLATION Qualifiers: Atrial fibrillation type: persistent Qualified Code(s): I48.1 - Persistent atrial fibrillation (7) Diarrhea Code(s): R19.7 - DIARRHEA, UNSPECIFIED (8) Food poisoning Code(s): T62.91XA - TOXIC EFFECT OF UNSP NOXIOUS SUB EATEN FOOD, ACC, INIT (9) HTN (hypertension) Code(s): I10 - ESSENTIAL (PRIMARY) HYPERTENSION Qualifiers: Hypertension type: essential hypertension Qualified Code(s): I10 - Essential (primary) hypertension (10) Nausea and vomiting Code(s): R11.2 - NAUSEA WITH VOMITING, UNSPECIFIED (11) Obese Code(s): E66.9 - OBESITY, UNSPECIFIED (12) Vision changes Code(s): H53.9 - UNSPECIFIED VISUAL DISTURBANCE Visit type - Emergency Visit Emergency Visit: Yes ED Registration Date: 09/12/16 Care time: The patient presented to the Emergency Department on the above date and was hospitalized for further evaluation of their emergent condition. - New Patient This patient is new to me today: Yes Date on this admission: 09/13/16 - Critical Care Critical Care patient: No
--- NOTE | 2016-09-13 07:02 | DS ---
Physical Exam: SUBJECTIVE: Patient seen and examined at bedside in ER. Pt sleeping in bed and in no distress when woken up. OBJECTIVE: Vital Signs Period Temp Pulse Resp BP Sys/Jacobs Pulse Ox Last 24 Hr 85 18 143/75 96 PHYSICAL EXAM GENERAL: The patient is awake, alert, and fully oriented, in no acute distress. HEAD: Normal with no signs of trauma. EYES: PERRL, extraocular movements intact, sclera anicteric, conjunctiva clear. ENT: Ears normal, nares patent, oropharynx clear without exudates, moist mucous membranes. NECK: Trachea midline, full range of motion, supple. LUNGS: Breath sounds equal, clear to auscultation bilaterally, no wheezes, no crackles, no accessory muscle use. HEART: Regular rate and rhythm, S1, S2 without murmur, rub or gallop. ABDOMEN: Soft, nontender, nondistended, normoactive bowel sounds, no guarding, no rebound, no hepatosplenomegaly, no masses. EXTREMITIES: 2+ pulses, warm, well-perfused, no edema. NEUROLOGICAL: Cranial nerves II through XII grossly intact. Normal speech, gait not observed. PSYCH: Normal mood, normal affect. SKIN: Warm, dry, normal turgor, no rashes or lesions noted. LABS HOSPITAL COURSE: Date of Admission:09/12/16 Date of Discharge: 09/13/16 81 y/o F w/PMH of HTN, a-fib,[place] (2014), CVA (2015), diverticulitis (s/p colostomy 13 years ago), breast ca s/p r mastectomy, non-compliant with meds presents to ER with c/o of nausea and vomiting and diarrhea since this evening after eating week old lori angelo. Found to have 1+ LE and 23 WBC in UA. Treated with IVF hydration and given 1 dose of ceftriaxone. She complained that the NS was causing a reaction and wanted it stopped and I stopped the NS. She also c/o of shakes despite being in no acute distress. After leaving bedside pt comfortably fell asleep. Pt had head CT done during this admission which showed no acute pathology. Pt discharged home and to f/u with Dr. Davis, her PCP, within the week. Pt c/o of chronic vision changes which I recommended for her to see optho. Minutes to complete discharge: 35 Discharge Summary Reason For Visit: UTI, GENERAL WEAKNESS Current Active Problems Dizziness (Acute) UTI (urinary tract infection) (Acute) Condition: Stable - Instructions Diet, Activity, Other Instructions: Please follow up with your primary care doctor within the next week. Please be careful of the foods you eat. If they are old or spoiled do not eat them. It seems that this time your nausea, vomiting, and diarrhea was due to the old clam chowder you ate. make you sure to stay hydrated and drink a lot of water. Referrals: Kristopher Davis MD [Primary Care Provider] - Disposition: HOME - Home Medications Comprehensive Discharge Medication List: Ambulatory Orders Diazepam [Valium] 2 mg PO TID PRN #0 tablet 05/17/15 Cyanocobalamin Vit B-12 Inj. 1,000 mg IM MONTHLY 08/11/16 Mag Hydrox/Al Hydrox/Simeth [Mylanta Oral Suspension -] 30 ml PO Q6H PRN #0 cup 08/16/16 Amlodipine Besylate [Norvasc -] 5 mg PO BID #60 tablet 08/19/16 Problem List - Problems (1) Dizziness Code(s): R42 - DIZZINESS AND GIDDINESS (3) AMBIKA (acute kidney injury) Code(s): N17.9 - ACUTE KIDNEY FAILURE, UNSPECIFIED (4) Abdominal pain Code(s): R10.9 - UNSPECIFIED ABDOMINAL PAIN (5) Anxiety Code(s): F41.9 - ANXIETY DISORDER, UNSPECIFIED (6) Atrial fibrillation Code(s): I48.91 - UNSPECIFIED ATRIAL FIBRILLATION Qualifiers: Atrial fibrillation type: persistent Qualified Code(s): I48.1 - Persistent atrial fibrillation (7) Diarrhea Code(s): R19.7 - DIARRHEA, UNSPECIFIED (8) Food poisoning Code(s): T62.91XA - TOXIC EFFECT OF UNSP NOXIOUS SUB EATEN FOOD, ACC, INIT (9) HTN (hypertension) Code(s): I10 - ESSENTIAL (PRIMARY) HYPERTENSION Qualifiers: Hypertension type: essential hypertension Qualified Code(s): I10 - Essential (primary) hypertension (10) Nausea and vomiting Code(s): R11.2 - NAUSEA WITH VOMITING, UNSPECIFIED (11) Obese Code(s): E66.9 - OBESITY, UNSPECIFIED (12) Vision changes Code(s): H53.9 - UNSPECIFIED VISUAL DISTURBANCE This patient is new to me today: Yes Date on this admission: 09/13/16 Emergency Visit: Yes ED Registration Date: 09/12/16 Care time: The patient presented to the Emergency Department on the above date and was hospitalized for further evaluation of their emergent condition. Critical Care patient: No - Discharge Referral Referred to [facility] Med [facility] No
--- NOTE | 2016-09-13 10:00 | EKG ---
Test Reason : Blood Pressure : / mmHG Vent. Rate : 084 BPM Atrial Rate : 084 BPM P-R Int : 122 ms QRS Dur : 086 ms QT Int : 406 ms P-R-T Axes : 090 002 056 degrees QTc Int : 479 ms NORMAL SINUS RHYTHM POSSIBLE ANTERIOR INFARCT , AGE UNDETERMINED NONSPECIFIC ST ABNORMALITY Confirmed by SAMI COVINGTON MD ([id number]) on 09/13/2016 10:00:15 AM Referred By: Confirmed By:SAMI COVINGTON MD
--- NOTE | 2016-09-13 10:38 | HOSP ---
Subjective - Review of Symptoms Events since last encounter: Asked to evaluate patient because she is saying it is not safe for her to go home. She initially presented to the ER overnight with vomiting, diarrhea and dizziness. She was diagnosed with gastroenteritis, placed in observation and treated with IV fluid. She has had no further vomiting, diarrhea or pain and was discharged home this morning. She tolerated breakfast. She says she can't go home because she lives alone and her home care agency doesn't send an aide many days. She therefore has to manage on her own and "collapses". She reports visual changes that have been ongoing for several months. She is in no distress , is afebrile, and her vital signs have remained stable. Physical Examination Vital Signs: Vital Signs Temperature 97.6 F 09/12/16 20:42 Pulse Rate 85 09/13/16 02:11 Respiratory Rate 18 09/13/16 02:11 Blood Pressure 143/75 09/13/16 02:11 O2 Sat by Pulse Oximetry (%) 96 09/13/16 02:11 Constitutional: Yes: No Distress Eyes: Yes: Conjunctiva Clear, EOM Intact, PERRL Cardiovascular: Yes: Regular Rate and Rhythm, S1, S2 Respiratory: Yes: CTA Bilaterally Gastrointestinal: Yes: Normal Bowel Sounds, Soft, Abdomen, Obese. No: Distention, Tenderness Renal/: No: CVA Tenderness - Left, CVA Tenderness - Right Extremities: No: Calf Tenderness Edema: No Peripheral Pulses WNL: Yes Integumentary: No: Rash Neurological: Yes: Alert, Oriented, Cran Nerves II-XII Intact ...Motor Strength: WNL Hospitalist Encounter Assessment: Acute gastroenteritis with nausea, vomiting, diarrhea - symptoms improved Recommendations/Interventions: 1. Ok to discharge home as per prior plan with continued services 2. Case management/social service aware 3. Follow-up with Dr. Davis next week
[2016-09-13 13:40] VITALS: BP 136/78; PULSE 78; TEMP 97.9
--- NOTE | 2016-09-17 13:37 | EKG ---
Test Reason : Blood Pressure : / mmHG Vent. Rate : 106 BPM Atrial Rate : 093 BPM P-R Int : 000 ms QRS Dur : 080 ms QT Int : 374 ms P-R-T Axes : 000 005 082 degrees QTc Int : 496 ms ATRIAL FIBRILLATION WITH RAPID VENTRICULAR RESPONSE POSSIBLE INFERIOR INFARCT , AGE UNDETERMINED POSSIBLE ANTERIOR INFARCT (CITED ON OR BEFORE 12-SEP-2016) ABNORMAL ECG WHEN COMPARED WITH ECG OF 12-SEP-2016 20:58, ATRIAL FIBRILLATION HAS REPLACED SINUS RHYTHM VENT. RATE HAS INCREASED Confirmed by JOVANNY BENDER MD ([id number]) on 09/17/2016 1:36:37 PM Referred By: Confirmed By:JOVANNY BENDER MD
--- NOTE | 2016-09-17 13:39 | EKG ---
Test Reason : Blood Pressure : / mmHG Vent. Rate : 083 BPM Atrial Rate : 083 BPM P-R Int : 000 ms QRS Dur : 082 ms QT Int : 388 ms P-R-T Axes : 000 001 090 degrees QTc Int : 455 ms LIKELY ATRIAL TACHYCARDIA POSSIBLE ANTERIOR INFARCT , AGE UNDETERMINED NONSPECIFIC ST AND T WAVE ABNORMALITY ABNORMAL ECG WHEN COMPARED WITH ECG OF 10-AUG-2016 23:22, POSSIBLE ATRIAL TACHYCARDIA FROM ATRIAL FIBRILLATION Confirmed by JOVANNY BENDER MD ([id number]) on 09/17/2016 1:39:21 PM Referred By: Confirmed By:JOVANNY BENDER MD
== END 2016-09-13 13:35 | disposition home or self-care (01) ==
LOC: JER 20:35 → JERBED 23:41 → UNDOADMOB 23:46
PROVIDERS: ADMIT Internal Medicine; ATTEND Internal Medicine
DX: N39.0 Urinary tract infection, site not specified (principal); R42 Dizziness and giddiness; I10 Essential (primary) hypertension; Z86.73 Personal history of transient ischemic attack (TIA), and cerebral infarction without residual deficits; I25.2 Old myocardial infarction; Z85.3 Personal history of malignant neoplasm of breast; Z91.14 Patient's other noncompliance with medication regimen; I48.1 Persistent atrial fibrillation; E66.9 Obesity, unspecified; Z68.34 Body mass index [BMI] 34.0-34.9, adult; K52.9 Noninfective gastroenteritis and colitis, unspecified; I25.10 Atherosclerotic heart disease of native coronary artery without angina pectoris; E78.5 Hyperlipidemia, unspecified
CPT/HCPCS: 36415; 70450-TC; 71010-TC; 80053; 81003; 81015; 82550; 82553; 83735; 84484; 85025; 93005; 93010; 99283-25; G0378

== ENCOUNTER 2016-09-29 19:39 | Emergency (ER) | payer OTHER ==
[2016-09-29 19:52] VITALS: BMI 33.4
[2016-09-29] MEDS ORDERED: METOCLOPRAMIDE HCL INJECTION 10 MG/2 ML VIAL IVPUSH ONE (20:15)
[2016-09-29] MEDS ORDERED: SODIUM CHLORIDE 500 ML IV STA (20:15)
--- NOTE | 2016-09-29 20:17 | PDOC ---
History of Present Illness - General History Source: Patient, Old Records Exam Limitations: No Limitations <Sonu Castorena - Last Filed: 09/29/16 23:49> <Rolan Hsieh - Last Filed: 10/01/16 20:25> - General Chief Complaint: Lightheaded Stated Complaint: VERTIGO/HIGH BP/HEADACHE Time Seen by Provider: 09/29/16 20:10 - History of Present Illness Initial Comments: 09/29/16 23:49 The patient is a 81 year old female, with a significant past medical history of anemia, asthma, breast CA s/p, partial mastectomy, [place] (2015), CVA (2015), diabetes, HTN, HLD, diverticulitis s/p colostomy, who presents to the emergency department with dizziness and headache for the past few months. She also reports nausea and vomiting that occurred today, which she relates to her dizziness. She notes that her dizziness causes her to have triple vision. She describes her headache as a pressure that is mild nature, without radiation or modifying factors. She states that she has taken Meclazine in the past for her dizziness with ill effects and prefers to not take the medication. She also states that she took Meclazine and a valium within hours of each other today. She notes that she is currently not taking Norvasc due to the side effects she gets to it. She states that she has told her doctors of the situation and they are working to remedy the situation. The patient denies chest pain, shortness of breath, fever, chills, diarrhea and constipation. Denies dysuria, frequency, urgency and hematuria. Allergies: Sulfa, atropine, microbid, venlafaxine HCl, protonix, digoxin, clindamycin, clonazepam, lexapro, famotidine, lasix, gatifloxacin, vistaril, levaquin, gentamicin, moxifloxacin HCl, Toprol XL, paxil, mupirocin, zoloft, sotalol, tramadol HCl Past surgical history: Colostomy (13 years ago) Social history: No alcohol, tobacco or drug use reported PMD - Dr. Kristopher Cevallos (Sonu Castorena) Past History <Sonu Castorena - Last Filed: 09/29/16 23:49> - Past Medical History Anemia: Yes Asthma: Yes (induced) Cancer: Yes (RT BREAST STATUS post partial mastectomy) Cardiac Disorders: Yes ([place] 2014) CVA: Yes (2014) COPD: No CHF: No Dementia: No Diabetes: Yes (pre- diabetes) GI Disorders: Yes (diverticulitis/COLOSTOMY) Disorders: No HTN: Yes Hypercholesterolemia: Yes Kidney Stones: Yes Liver Disease: No Suicide Attempt (Hx): No Seizures: No Thyroid Disease: No - Surgical History Abdominal Surgery: Yes (COLOSTOMY 13 years size 2 1/2 "pt does self care) Appendectomy: No Cardiac Surgery: No Cholecystectomy: No Lung Surgery: No Neurologic Surgery: No Orthopedic Surgery: No - Immunization History Immunization Up to Date: Yes - Psycho/Social/Smoking Cessation Hx Anxiety: No Suicidal Ideation: No Smoking Status: No Smoking History: Never smoked Have you smoked in the past 12 months: No Number of Cigarettes Smoked Daily: 0 Cigars Per Day: 0 Hx Alcohol Use: No Drug/Substance Use Hx: No Substance Use Type: None Hx Substance Use Treatment: No <Rolan Hsieh - Last Filed: 10/01/16 20:25> - Past Medical History Allergies/Adverse Reactions: Allergies Allergy/AdvReac Type Severity Reaction Status Date / Time Sulfa (Sulfonamide Allergy Unknown Verified 09/29/16 19:46 Antibiotics) [Sulfa(Sulfonamide Antibiotics)] atropine Allergy Verified 09/29/16 19:46 nitrofurantoin Allergy Verified 09/29/16 19:46 [From Macrobid] nitrofurantoin Allergy Verified 09/29/16 19:46 macrocrystalline [From Macrobid] pantoprazole sodium Allergy Verified 09/29/16 19:46 [From Protonix] venlafaxine HCl Allergy Verified 09/29/16 19:46 [From Effexor] clindamycin AdvReac Verified 09/29/16 19:46 clonazepam AdvReac Verified 09/29/16 19:46 digoxin AdvReac Verified 09/29/16 19:46 escitalopram oxalate AdvReac Verified 09/29/16 19:46 [From Lexapro] famotidine AdvReac Verified 09/29/16 19:46 furosemide [From Lasix] AdvReac Verified 09/29/16 19:46 gatifloxacin [From Tequin] AdvReac Verified 09/29/16 19:46 gentamicin [Gentamicin] AdvReac Verified 09/29/16 19:46 hydroxyzine HCl AdvReac Verified 09/29/16 19:46 [From Vistaril] hydroxyzine pamoate AdvReac Verified 09/29/16 19:46 [From Vistaril] levofloxacin [From Levaquin] AdvReac Verified 09/29/16 19:46 metoprolol succinate AdvReac Verified 09/29/16 19:46 [From Toprol XL] moxifloxacin HCl AdvReac Verified 09/29/16 19:46 [From Avelox] mupirocin AdvReac Verified 09/29/16 19:46 paroxetine HCl [From Paxil] AdvReac Verified 09/29/16 19:46 sertraline HCl [From Zoloft] AdvReac Verified 09/29/16 19:46 sotalol [Sotalol] AdvReac Verified 09/29/16 19:46 tramadol HCl [From Ultram] AdvReac Verified 09/29/16 19:46 Home Medications: Ambulatory Orders Diazepam [Valium] 2 mg PO TID PRN #0 tablet 05/17/15 Meclizine HCl [Antivert -] 12.5 mg PO TID 09/29/16 Cardiac Specific PMH - Complaint Specific PMHX Pacemaker: No <Rolan Hsieh - Last Filed: 10/01/16 20:25> Review of Systems - Review of Systems Able to Perform ROS?: Yes <Sonu Castorena - Last Filed: 09/29/16 23:49> <Rolan Hsieh - Last Filed: 10/01/16 20:25> - Review of Systems Comments:: 09/29/16 23:49 CONSTITUTIONAL: No reported: Fever, Chills, Diaphoresis, Generalized Weakness, Malaise, Loss of Appetite HEENT: No reported: Rhinorrhea, Nasal Congestion, Throat Pain, Throat Swelling, Difficulty Swallowing, Mouth Swelling, Ear Pain, Eye Pain, Visual Changes CARDIOVASCULAR: No reported: Chest Pain, Syncope, Palpitations, Irregular Heart Rate, Lightheadedness, Peripheral Edema RESPIRATORY: No reported: Cough, Shortness of Breath, SOB with Exertion, Orthopnea, Wheezing , Stridor, Hemoptysis GASTROINTESTINAL: Reported: Nausea and vomiting. No reported: Abdominal pain, Abdominal Distension, Diarrhea, Constipation, Melena, Hematochezia GENITOURINARY: No reported: Dysuria, Frequency, Urgency, Hesitancy, Flank Pain, Genital Pain MUSCULOSKELETAL: No reported: Myalgia, Arthralgia, Joint Swelling, Back pain, Neck Pain SKIN: No reported: Rash, Itching, Pallor HEMEATOLOGIC/IMMUNOLOGIC: No reported: Easy Bleeding, Easy Bruising, Lymphadenopathy, Frequent infections ENDOCRINE: No reported: Unexplained Weight Gain, Unexplained Weight Loss, Heat Intolerance , Cold Intolerance NEUROLOGIC: Reported: Headache, dizziness. No reported: Focal Weakness, Paresthesias, Lightheadedness, Unsteady Gait, Seizure, Mental Status Changes, Incontinence PSYCHIATRIC: No reported: Anxiety, Depression (Sonu Castorena) *Physical Exam <Sonu Castorena - Last Filed: 09/29/16 23:49> <Rolan Hsieh - Last Filed: 10/01/16 20:25> - Vital Signs Last Vital Signs Temp Pulse Resp BP Pulse Ox 97.1 F L 87 18 119/59 99 09/30/16 02:25 09/30/16 02:25 09/30/16 02:25 09/30/16 02:25 09/30/16 02:25 - Physical Exam Comments: 09/29/16 23:49 GENERAL: The patient is awake, alert, and fully oriented, Nontoxic - in no acute distress. HEAD: Normocephalic, atraumatic. EYES: extraocular movements intact, sclera anicteric, conjunctiva clear. ENT: Normal voice, Moist mucous membranes. NECK: Normal range of motion, supple LUNGS: Breath sounds equal, clear to auscultation bilaterally. No wheezes, no rhonchi, no rales. HEART: Regular rate and rhythm, without murmur, rub or gallop. ABDOMEN: Soft, nontender, normoactive bowel sounds. No guarding, no rebound.No CVA tenderness EXTREMITIES: Normal range of motion, no edema. No clubbing or cyanosis. No cords, erythema, or tenderness. NEUROLOGICAL: No facial assymetry, Normal speech, normal strength in upper/ lower extremities, finger to nose/rapid alternating movements symmetric/equal. PSYCH: Normal mood, normal affect. SKIN: Warm, Dry, normal turgor (Sonu Castorena) ED Treatment Course - LABORATORY CBC & Chemistry Diagram: 09/29/16 20:52 09/29/16 21:30 <Sonu Castorena - Last Filed: 09/29/16 23:49> - LABORATORY CBC & Chemistry Diagram: 09/29/16 20:52 09/29/16 21:30 <Rolan Hsieh - Last Filed: 10/01/16 20:25> - ADDITIONAL ORDERS Additional order review: 09/29/16 20:52 RBC 4.38 MCV 87.1 MCHC 33.4 RDW 14.1 MPV 7.9 Neutrophils % 77.5 Lymphocytes % 15.4 D Monocytes % 6.1 Eosinophils % 0.4 Basophils % 0.6 - RADIOLOGY Radiology Studies Ordered: Category Date Time Status HEAD CT WITHOUT CONTRAST [CT] Stat CT Scan 09/29/16 20:45 Completed - Medications Given in the ED: ED Medications Discontinued Medications Generic Name Dose Route Start Last Admin Trade Name Freq PRN Reason Stop Dose Admin Sodium Chloride 500 mls @ 500 mls/hr 09/29/16 20:15 09/29/16 21:28 Normal Saline - IV 09/29/16 21:14 500 mls/hr ASDIR STA Administration Metoclopramide HCl 10 mg 09/29/16 20:15 09/29/16 21:28 Reglan Injection - IVPUSH 09/29/16 20:16 Not Given ONCE ONE Medical Decision Making <Sonu Castorena - Last Filed: 09/29/16 23:49> <Rolan Hsieh - Last Filed: 10/01/16 20:25> - Medical Decision Making 09/29/16 20:46 81y F hx of cva, anemia, [place] brast ca s/p partial amstectomy, mi, cva, dm, htn, hl, diverticulitis s/p colostomy presents with complaint of vertigo/ dizziness that is worse than usual - the pt did states she took a meclizine followed by a valium. I suspect that may be worsening her sypmtoms. The pts exam is normal including neuro exam with no cerebellar findings. will ck labs to r/o anemia, metabolic dernagement will ck ekg to r/o arrythmia ct head to r/o cva will give fluids for hydration - suspect her sypmtoms may be syngergistic effect of valium/meclizine A portion of this note was documented by scribe services under my direction. I have reviewed the details of the note, within reason, and agree with the documentation with the following case summary and management plan written by me 09/30/16 01:44 pts labs reviewed mild dehdyration - will hvae pt hydrate at home orally pt was reassessed and she was able to ambulate stably without any assistance, or instability. ua shows some WBC, but pt is w/o sypmtoms and based on her significant allergy profile - will await cultures ct negative pt is expressing concern that she is concerned she will be alone and no one will be there if something happens. The pt states she is concerned she might fall when she is walking, however the pt was ambulated by myself and had a steady gait. I think she will be safe for the evening, the pt has no focal findings nor reasons for me to think she is not a safe discharge. will d/c the pt to fu with dr. cevallos and neurology tomorrow return precautions were discussed I discussed the physical exam findings, ancillary test results and final diagnoses with the patient. I answered all of the patient's questions. The patient was satisfied with the care received and felt comfortable with the discharge plan and treatment plan. The patient will call their primary care physician within 24 hours to arrange follow-up and will return to the Emergency Department with any new, persistent or worsening symptoms. (Rolan Hsieh) *DC/Admit/Observation/Transfer <Sonu Castorena - Last Filed: 09/29/16 23:49> - Discharge Dispostion Admit: No <Rolan Hsieh - Last Filed: 10/01/16 20:25> Diagnosis at time of Disposition: Vertigo HTN (hypertension) Qualifiers: Hypertension type: essential hypertension Qualified Code(s): I10 - Essential ( primary) hypertension - Discharge Dispostion Disposition: HOME Condition at time of disposition: Improved - Referrals Referrals: Kristopher Cevallos MD [Primary Care Provider] - Mir Nevarez MD [Staff Physician] - - Patient Instructions Printed Discharge Instructions: DI for Vertigo Additional Instructions: Return to the emergency department immediately with ANY new, persistent or worsening symptoms. You MUST call and follow up with your doctor tomorrow for further evaluation of your symptoms. Results were discussed with you. Please make sure your doctor reviews the results of your emergency evaluation. If you had any xrays during your visit, it was read preliminarily by myself, a Radiologist will review it and if there are any additional findings we will call you. Print Language: SERBIAN - Attestations Scribe Attestion: 09/29/16 23:50 Documentation prepared by Sonu Castorena, acting as medical genetics director for Rolan Hsieh MD (Kell,Sonu Meneses)
[2016-09-29 21:10] LABS: BASOPHIL 0.6 % (0-2.0); EOSINOPHIL 0.4 % (0-4.5); MCH 29.1 pg (25.7-33.7); MCHC 33.4 g/dl (32.0-36.0); MEAN CELL VOLUME 87.1 fl (80-96); MEAN PLT VOLUME 7.9 fl (7.5-11.1); NEUTROPHILS 77.5 % (42.8-82.8); PLATELET COUNT 240 K/MM3 (134-434); RDW 14.1 % (11.6-15.6); WHITE BLOOD COUNT 9.3 K/mm3 (4.0-10.0)
[2016-09-29 21:19] LABS: URINE APPEARANCE SLCLOUDY; URINE BILIRUBIN NEGATIVE (NEGATIVE); URINE COLOR LTYELLOW; URINE GLUCOSE (UA) NEGATIVE (NEGATIVE); URINE KETONE NEGATIVE (NEGATIVE); URINE NITRITE NEGATIVE (NEGATIVE); URINE UROBILINOGEN NEGATIVE E.U./dl (0.2-1.0)
[2016-09-29 21:22] LABS: URINE BLOOD 1+ (NEGATIVE); URINE LEUK ESTERASE 2+ (NEGATIVE); URINE PROTEIN 1+ (NEGATIVE)
[2016-09-29 21:23] LABS: URINE BACTERIA RARE /hpf (NONE SEEN); URINE MUCUS RARE; URINE RBC 3 /hpf (0-3); URINE WBC 69 /hpf (3-5)
[2016-09-29 22:03] LABS: TROPONIN I < 0.02 ng/ml (0.00-0.05)
[2016-09-29 22:26] LABS: ALBUMIN 3.7 g/dl (3.4-5.0); ANION GAP 12 (8-16); CALCIUM 8.8 mg/dL (8.5-10.1); CO2 22 mmol/L (21-32); COCKROFT - GAULT 54.4935; CREATININE 1.2 mg/dL (0.55-1.02); GLUCOSE,RANDOM 102 mg/dL (74-106); SGOT/AST 20 U/L (15-37); SGPT/ALT 29 U/L (12-78)
[2016-09-29 22:30] LABS: ALK PHOS 87 U/L (45-117); BILIRUBIN,TOTAL 0.5 mg/dL (0.2-1.0); TOT PROT 7.3 g/dl (6.4-8.2)
[2016-09-30 02:26] VITALS: BP 119/59; PULSE 87; TEMP 97.1
== END 2016-09-30 03:40 | disposition home or self-care (01) ==
LOC: JER 19:39
PROC: 3E0337Z Introduction of Electrolytic and Water Balance Substance into Peripheral Vein, Percutaneous Approach (ICD-10-PCS; principal; 2016-09-29)
DX: I10 Essential (primary) hypertension (principal); R42 Dizziness and giddiness; R73.03 Prediabetes; E78.00 Pure hypercholesterolemia, unspecified; J45.909 Unspecified asthma, uncomplicated; D64.9 Anemia, unspecified; Z86.73 Personal history of transient ischemic attack (TIA), and cerebral infarction without residual deficits; K57.90 Diverticulosis of intestine, part unspecified, without perforation or abscess without bleeding; Z93.3 Colostomy status
CPT/HCPCS: 36415; 70450-TC; 80053; 81003; 81015; 82550; 84484; 85025; 96360; 99283-25

== ENCOUNTER 2016-10-23 22:35 | Emergency (ER) | payer OTHER ==
[2016-10-23 22:50] VITALS: PULSE 65; TEMP 97.8; BMI 33.9
--- NOTE | 2016-10-24 01:26 | PDOC ---
History of Present Illness - General History Source: Patient Exam Limitations: No Limitations - History of Present Illness Initial Comments: 10/24/16 01:35 The patient is a 81 year old female with significant past medical history of anemia, asthma, breast CA s/p partial mastectomy, [place] (2014), CVA (2015), diabetes, a-fib on eliquis, hypertension, hyperlipemia, diverticulitis s/p colostomy who presents to the ED for elevated blood pressure. Patient reports she went to [employer] around 6pm today to buy a blood pressure monitor. After checking her blood pressure, she noted it to be 201/99. States checking several times after that and noted it to still be elevated. Patient reports is normally on norvasc and several other medications, but voluntary stopped taking her medications due to side effects. Her only complaint is a headache. Denies dizziness, vision changes, or paresthesias. Denies lightheadedness, diaphoresis , chest pain, palpitations, SOB, jaw pain, shoulder pain, arm pain, nausea, or vomiting. The patient denies fever, chills, cough, abdominal pain, and diarrhea. Allergies: Sulfa, atropine, microbid, venlafaxine HCl, protonix, digoxin, clindamycin, clonazepam, lexapro, famotidine, lasix, gatifloxacin, vistaril, levaquin, gentamicin, moxifloxacin HCl, Toprol XL, paxil, mupirocin, zoloft, sotalol, tramadol HCl Social History: No alcohol, tobacco, or drug use reported. Past Surgical History: Colostomy (13 years ago), s/p partial mastectomy PCP: Dr. Kristopher Davis <Sue Brand - Last Filed: 10/24/16 02:01> - General History Source: Patient <Sonu Desouza - Last Filed: 10/24/16 03:21> - General Chief Complaint: Blood Pressure Problem Stated Complaint: BLOOD PRESSURE PROBLEM Time Seen by Provider: 10/24/16 00:50 Past History <Sue Brand - Last Filed: 10/24/16 02:01> - Past Medical History Anemia: Yes Asthma: Yes (induced) Cancer: Yes (RT BREAST STATUS post partial mastectomy) Cardiac Disorders: Yes ([place] 2014) CVA: Yes (2014) COPD: No CHF: No Dementia: No Diabetes: Yes (pre- diabetes) GI Disorders: Yes (diverticulitis/COLOSTOMY) Disorders: No HTN: Yes Hypercholesterolemia: Yes Kidney Stones: Yes Liver Disease: No Suicide Attempt (Hx): No Seizures: No Thyroid Disease: No - Surgical History Abdominal Surgery: Yes (COLOSTOMY 13 years size 2 1/2 "pt does self care) Appendectomy: No Cardiac Surgery: No Cholecystectomy: No Lung Surgery: No Neurologic Surgery: No Orthopedic Surgery: No - Immunization History Immunization Up to Date: Yes - Psycho/Social/Smoking Cessation Hx Anxiety: No Suicidal Ideation: No Smoking Status: No Smoking History: Never smoked Have you smoked in the past 12 months: No Number of Cigarettes Smoked Daily: 0 Cigars Per Day: 0 Hx Alcohol Use: No Drug/Substance Use Hx: No Substance Use Type: None Hx Substance Use Treatment: No <Sonu Desouza - Last Filed: 10/24/16 03:21> - Past Medical History Allergies/Adverse Reactions: Allergies Allergy/AdvReac Type Severity Reaction Status Date / Time Sulfa (Sulfonamide Allergy Unknown Verified 10/23/16 22:41 Antibiotics) [Sulfa(Sulfonamide Antibiotics)] atropine Allergy Verified 10/23/16 22:41 nitrofurantoin Allergy Verified 10/23/16 22:41 [From Macrobid] nitrofurantoin Allergy Verified 10/23/16 22:41 macrocrystalline [From Macrobid] pantoprazole sodium Allergy Verified 10/23/16 22:41 [From Protonix] venlafaxine HCl Allergy Verified 10/23/16 22:41 [From Effexor] clindamycin AdvReac Verified 10/23/16 22:41 clonazepam AdvReac Verified 10/23/16 22:41 digoxin AdvReac Verified 10/23/16 22:41 escitalopram oxalate AdvReac Verified 10/23/16 22:41 [From Lexapro] famotidine AdvReac Verified 10/23/16 22:41 furosemide [From Lasix] AdvReac Verified 10/23/16 22:41 gatifloxacin [From Tequin] AdvReac Verified 10/23/16 22:41 gentamicin [Gentamicin] AdvReac Verified 10/23/16 22:41 hydroxyzine HCl AdvReac Verified 10/23/16 22:41 [From Vistaril] hydroxyzine pamoate AdvReac Verified 10/23/16 22:41 [From Vistaril] levofloxacin [From Levaquin] AdvReac Verified 10/23/16 22:41 metoprolol succinate AdvReac Verified 10/23/16 22:41 [From Toprol XL] moxifloxacin HCl AdvReac Verified 10/23/16 22:41 [From Avelox] mupirocin AdvReac Verified 10/23/16 22:41 paroxetine HCl [From Paxil] AdvReac Verified 10/23/16 22:41 sertraline HCl [From Zoloft] AdvReac Verified 10/23/16 22:41 sotalol [Sotalol] AdvReac Verified 10/23/16 22:41 tramadol HCl [From Ultram] AdvReac Verified 10/23/16 22:41 Home Medications: Ambulatory Orders Diazepam [Valium] 2 mg PO TID PRN #0 tablet 05/17/15 Nebivolol [Bystolic -] 2.5 mg PO ONCE 10/23/16 Review of Systems - Review of Systems Able to Perform ROS?: Yes Comments:: 10/24/16 01:36 CONSTITUTIONAL: Absent: fever, no chills, no fatigue EYES: Absent: visual changes ENT: Absent: ear pain, no sore throat CARDIOVASCULAR: +elevated blood pressure Absent: chest pain, no palpitations RESPIRATORY: Absent: cough, no SOB GI: Absent: abdominal pain, no nausea, no vomiting, no constipation, no diarrhea GENITOURINARY: Absent: dysuria, no frequency, no hematuria MUSCULOSKELETAL: Absent: back pain, no arthralgia, no myalgia SKIN: Absent: rash NEURO: +headache <Sue Brand - Last Filed: 10/24/16 02:01> *Physical Exam - Vital Signs Last Vital Signs Temp Pulse Resp BP Pulse Ox 97.8 F 65 18 167/90 97 10/23/16 22:49 10/23/16 22:49 10/23/16 22:49 10/23/16 22:49 10/23/16 22:49 - Physical Exam Comments: 10/24/16 01:36 GENERAL: Well-appearing, well-nourished. No apparent distress. HEENT: Normocephalic, atraumatic. PERRL, EOM intact. CARDIOVASCULAR: Normal S1, S2. Regular rate and rhythm. PULMONARY: Clear to auscultation bilaterally. ABDOMEN: Soft, non-distended, non-tender. EXTREMITIES: Normal ROM in all four extremities. No gross deformities. SKIN: Warm, dry. No rash NEUROLOGICAL: No focal neurological deficits. <Sue Brand - Last Filed: 10/24/16 02:01> - Vital Signs Last Vital Signs Temp Pulse Resp BP Pulse Ox 97.8 F 65 18 167/90 97 10/23/16 22:49 10/23/16 22:49 10/23/16 22:49 10/23/16 22:49 10/23/16 22:49 <Sonu Desouza - Last Filed: 10/24/16 03:21> Heart Score/ECG Review - ECG Impressions Comment:: 10/24/16 02:02 Atrial fibrillation @72bpm Nonspecific ST abnormality Abnormal ECG <Sue Brand - Last Filed: 10/24/16 02:01> ED Treatment Course - LABORATORY CBC & Chemistry Diagram: 10/24/16 01:46 10/24/16 01:46 <Sue Brand - Last Filed: 10/24/16 02:01> - LABORATORY CBC & Chemistry Diagram: 10/24/16 01:46 10/24/16 01:46 <Sonu Desouza - Last Filed: 10/24/16 03:21> Medical Decision Making - Medical Decision Making 10/24/16 03:20 Dr. Desouza: The scribe's documentation has been prepared under my direction and personally reviewed by me in its entirery. I confirm that the note above accurately reflects all work, treatment, procedures, and medical decision making performed by me. <Sonu Desozua - Last Filed: 10/24/16 03:21> *DC/Admit/Observation/Transfer - Attestations Scribe Attestion: 10/24/16 01:36 Documentation prepared by Sue Brand, acting as medical office receptionist for Sonu Desouza MD/. <Sue Brand - Last Filed: 10/24/16 02:01> - Discharge Dispostion Admit: No <Sonu Desouza - Last Filed: 10/24/16 03:21> Diagnosis at time of Disposition: HTN (hypertension) Qualifiers: Hypertension type: essential hypertension Qualified Code(s): I10 - Essential ( primary) hypertension - Discharge Dispostion Disposition: HOME Condition at time of disposition: Stable - Referrals Referrals: Kristopher Davis MD [Primary Care Provider] - Mir Nevarez MD [Staff Physician] - Jose C Salomon MD [Staff Physician] - - Patient Instructions Printed Discharge Instructions: DI for High Blood Pressure, How to Monitor Your Blood Pressure at Home Additional Instructions: continue taking your medications as you are supposed to. Make appointment and follow up with Dr. Davis.
[2016-10-24 01:50] LABS: BASOPHIL 1.3 % (0-2.0); MCH 29.2 pg (25.7-33.7); MCHC 33.6 g/dl (32.0-36.0); MEAN CELL VOLUME 87.1 fl (80-96); MEAN PLT VOLUME 7.9 fl (7.5-11.1); PLATELET COUNT 226 K/MM3 (134-434); RDW 13.6 % (11.6-15.6); WHITE BLOOD COUNT 9.8 K/mm3 (4.0-10.0)
[2016-10-24 02:11] LABS: ALBUMIN 3.5 g/dl (3.4-5.0); BILIRUBIN,TOTAL 0.5 mg/dL (0.2-1.0); CALCIUM 8.8 mg/dL (8.5-10.1); COCKROFT - GAULT 55.284; CREATININE 1.2 mg/dL (0.55-1.02)
[2016-10-24 02:14] LABS: TROPONIN I 0.03 ng/ml (0.00-0.05)
[2016-10-24 03:31] VITALS: BP 159/86
--- NOTE | 2016-10-24 17:25 | EKG ---
Test Reason : Blood Pressure : / mmHG Vent. Rate : 072 BPM Atrial Rate : 066 BPM P-R Int : 000 ms QRS Dur : 096 ms QT Int : 428 ms P-R-T Axes : 000 -04 076 degrees QTc Int : 468 ms ATRIAL FIBRILLATION NONSPECIFIC ST ABNORMALITY ABNORMAL ECG WHEN COMPARED WITH ECG OF 12-SEP-2016 23:52, ATRIAL FIBRILLATION HAS REPLACED SINUS RHYTHM Confirmed by JOE CHAIDEZ MD ([id number]) on 10/24/2016 5:24:56 PM Referred By: Confirmed By:JOE CHAIDEZ MD
== END 2016-10-24 03:32 | disposition home or self-care (01) ==
LOC: JER 22:35
DX: I10 Essential (primary) hypertension (principal); J45.909 Unspecified asthma, uncomplicated; Z85.3 Personal history of malignant neoplasm of breast; I25.2 Old myocardial infarction; E11.9 Type 2 diabetes mellitus without complications; I48.91 Unspecified atrial fibrillation; E78.5 Hyperlipidemia, unspecified; Z79.01 Long term (current) use of anticoagulants
CPT/HCPCS: 36415; 80053; 82550; 82553; 84484; 85025; 93005; 93010; 99281-25

== ENCOUNTER 2016-11-02 17:45 | Inpatient (IN) | payer OTHER ==
[2016-11-02 17:55] VITALS: BMI 32.8
--- NOTE | 2016-11-02 18:06 | PDOC ---
History of Present Illness - General History Source: Patient Exam Limitations: No Limitations - History of Present Illness Initial Comments: 11/02/16 18:52 The patient is a 81 year old female with history of hypertension, breast CA s/p R mastectomy, anxiety who presents to the ED complaining of 1 day of diffuse chest discomfort that began several hours prior to arrival. She states she measured her blood pressure to 200/105 at home, prompting her to come to the ED. She states she stopped taking her Bystolic 5 days ago because "they were causing panic attacks". She also reports she has been experiencing several months of diffuse headache, dizziness, and blurred vision, attributed to vertigo by her PCP, unchanged. No shortness of breath, nausea, vomiting, or diarrhea. No fever or chills. PCP: Dr. Davis Tobacco Stripping Machine Operator: Dr. Zurita <Bibiana Minor - Last Filed: 11/02/16 19:35> <Clement Smith - Last Filed: 11/02/16 21:16> <Monica Chauhan - Last Filed: 11/02/16 21:30> - General Chief Complaint: Blurry Vision Stated Complaint: BP PROBLEM/HEADACHE/CHEST PAIN Time Seen by Provider: 11/02/16 18:00 Past History <Bibiana Minor - Last Filed: 11/02/16 19:35> - Past Medical History Anemia: Yes Asthma: Yes (induced) Cancer: Yes (RT BREAST STATUS post partial mastectomy) Cardiac Disorders: Yes ([place] 2014) CVA: Yes (2014) COPD: No CHF: No Dementia: No Diabetes: Yes (pre- diabetes) GI Disorders: Yes (diverticulitis/COLOSTOMY) Disorders: No HTN: Yes Hypercholesterolemia: Yes Kidney Stones: Yes Liver Disease: No Suicide Attempt (Hx): No Seizures: No Thyroid Disease: No - Surgical History Abdominal Surgery: Yes (COLOSTOMY 13 years size 2 1/2 "pt does self care) Appendectomy: No Cardiac Surgery: No Cholecystectomy: No Lung Surgery: No Neurologic Surgery: No Orthopedic Surgery: No - Immunization History Immunization Up to Date: Yes - Psycho/Social/Smoking Cessation Hx Anxiety: No Suicidal Ideation: No Smoking Status: No Smoking History: Never smoked Have you smoked in the past 12 months: No Number of Cigarettes Smoked Daily: 0 Cigars Per Day: 0 Hx Alcohol Use: No Drug/Substance Use Hx: No Substance Use Type: None Hx Substance Use Treatment: No <Clement Smith - Last Filed: 11/02/16 21:16> <Monica Chauhan - Last Filed: 11/02/16 21:30> - Past Medical History Allergies/Adverse Reactions: Allergies Allergy/AdvReac Type Severity Reaction Status Date / Time Sulfa (Sulfonamide Allergy Unknown Verified 11/02/16 17:49 Antibiotics) [Sulfa(Sulfonamide Antibiotics)] atropine Allergy Verified 11/02/16 17:49 nitrofurantoin Allergy Verified 11/02/16 17:49 [From Macrobid] nitrofurantoin Allergy Verified 11/02/16 17:49 macrocrystalline [From Macrobid] pantoprazole sodium Allergy Verified 11/02/16 17:49 [From Protonix] venlafaxine HCl Allergy Verified 11/02/16 17:49 [From Effexor] clindamycin AdvReac Verified 11/02/16 17:49 clonazepam AdvReac Verified 11/02/16 17:49 digoxin AdvReac Verified 11/02/16 17:49 escitalopram oxalate AdvReac Verified 11/02/16 17:49 [From Lexapro] famotidine AdvReac Verified 11/02/16 17:49 furosemide [From Lasix] AdvReac Verified 11/02/16 17:49 gatifloxacin [From Tequin] AdvReac Verified 11/02/16 17:49 gentamicin [Gentamicin] AdvReac Verified 11/02/16 17:49 hydroxyzine HCl AdvReac Verified 11/02/16 17:49 [From Vistaril] hydroxyzine pamoate AdvReac Verified 11/02/16 17:49 [From Vistaril] levofloxacin [From Levaquin] AdvReac Verified 11/02/16 17:49 metoprolol succinate AdvReac Verified 11/02/16 17:49 [From Toprol XL] moxifloxacin HCl AdvReac Verified 11/02/16 17:49 [From Avelox] mupirocin AdvReac Verified 11/02/16 17:49 paroxetine HCl [From Paxil] AdvReac Verified 11/02/16 17:49 sertraline HCl [From Zoloft] AdvReac Verified 11/02/16 17:49 sotalol [Sotalol] AdvReac Verified 11/02/16 17:49 tramadol HCl [From Ultram] AdvReac Verified 11/02/16 17:49 Home Medications: Ambulatory Orders Diazepam [Valium] 2 mg PO TID PRN #0 tablet 05/17/15 Nebivolol [Bystolic -] 2.5 mg PO ONCE 10/23/16 Review of Systems - Review of Systems Able to Perform ROS?: Yes Comments:: 11/02/16 18:58 CONSTITUTIONAL: +Anxiety. No fever, no chills, no fatigue EYES: No visual changes ENT: No ear pain, no sore throat CARDIOVASCULAR: +Chest pain. No lightheadedness. RESPIRATORY: No cough, no SOB GI: No abdominal pain, no nausea, no vomiting, no constipation, no diarrhea GENITOURINARY: No dysuria, no frequency, no hematuria MUSCULOSKELETAL: No backpain, no joint pain, no myalgias SKIN: No rash NEURO: +Headache. No blurred vision, numbness/tingling, focal weakness. <Bibiana Minor - Last Filed: 11/02/16 19:35> *Physical Exam - Vital Signs Last Vital Signs Temp Pulse Resp BP Pulse Ox 97.3 F L 84 18 159/112 98 11/02/16 17:48 11/02/16 17:48 11/02/16 17:48 11/02/16 17:48 11/02/16 17:48 - Physical Exam Comments: 11/02/16 19:01 CONSTITUTIONAL: Well-appearing; well-nourished; anxious appearing HEAD: Normocephalic; atraumatic EYES: PERRL; EOM intact ENMT: External appears normal; normal oropharynx NECK: Supple; non-tender; no cervical lymphadenopathy CARD: Irregularly irregular; no murmurs, rubs, or gallops RESP: Normal chest excursion with respiration; breath sounds clear and equal bilaterally; no wheezes, rhonchi, or rales ABD: Soft, non-distended; non-tender; no palpable organomegaly, no palpable hernias EXT: 1+ bilateral lower extremity edema; Normal ROM in all four extremities; non -tender to palpation; distal pulses intact SKIN: s/p right sided mastectomy; Warm, dry, no rash NEURO: No focal neurological deficiencies. <Bibiana Minor - Last Filed: 11/02/16 19:35> - Vital Signs Last Vital Signs Temp Pulse Resp BP Pulse Ox 97.3 F L 84 18 159/112 98 11/02/16 17:48 11/02/16 17:48 11/02/16 17:48 11/02/16 17:48 11/02/16 17:48 <Clement Smith - Last Filed: 11/02/16 21:16> - Vital Signs Last Vital Signs Temp Pulse Resp BP Pulse Ox 97.3 F L 84 18 159/112 98 11/02/16 17:48 11/02/16 17:48 11/02/16 17:48 11/02/16 17:48 11/02/16 17:48 <Monica Chauhan - Last Filed: 11/02/16 21:30> ED Treatment Course - LABORATORY CBC & Chemistry Diagram: 11/02/16 18:56 11/02/16 18:56 <Bibiana Minor - Last Filed: 11/02/16 19:35> - LABORATORY CBC & Chemistry Diagram: 11/02/16 18:56 11/02/16 18:56 <Clement Smith - Last Filed: 11/02/16 21:16> - LABORATORY CBC & Chemistry Diagram: 11/02/16 18:56 11/02/16 18:56 - ADDITIONAL ORDERS Additional order review: 11/02/16 18:56 RBC 4.23 MCV 88.3 MCHC 32.5 RDW 14.0 MPV 8.4 Neutrophils % 70.2 Lymphocytes % 20.5 Monocytes % 6.8 Eosinophils % 1.8 Basophils % 0.7 <Monica Chauhan - Last Filed: 11/02/16 21:30> Medical Decision Making - Medical Decision Making 11/02/16 19:[address] <Bibiana Minor - Last Filed: 11/02/16 19:35> - Medical Decision Making 11/02/16 21:06 Patient is an 81-year-old female with history of hypertension, anxiety, paroxysmal atrial fibrillation, who is noncompliant with her medication regimen (patient has not taken Eliquis for 6 mo to 1 year, and has not taken bisystolic for one week. In the ER, patient is awake and alert, hypertensive, without focal neurological deficits. Lungs are noted to be clear. Serial abdominal exams reveal no focal tenderness. EKG reveals atrial flutter with variable conduction with a ventricular rate of 83 without evidence of acute ischemia. Chest x-ray reveals no evidence of infiltrate or effusion, elevated left hemidiaphragm is noted which appears to be old. CBC is within normal limit. CMP reveals minimally elevated CPK and troponin of uncertain significance. Will trend troponins. Patient has refused to take aspirin or Eliquis in the ER despite my numerous attempts to convince the patient to comply with medication regimen. Will admit to telemetry for serial cardiac enzyme measurement and further evaluation. Dr. Mcnair of cardiology informed and agrees with the plan of care. <Clement Smith - Last Filed: 11/02/16 21:16> - Medical Decision Making 11/02/16 19:15 Dr. Zurita was paged at 18:56 requesting a call back for doctor to doctor consult via phone answering service. I have been informed DR. Cochran will be returning the call. Dr. Cochran was paged a second time at 19:15 requesting a call back for doctor to doctor consult. 11/02/16 19:18 Dr. Cochran returned the call at this time and the patient's case was discussed. Dr. Davis was paged via phone answering service at 19:31 requesting a call back for doctor to doctor consult. I have been informed Dr. Bland will be returning the call. Dr. Bland returned the call at 19:35 and the patient's case was discussed. Dr. Bland accepts the patient's admission at this time. Dr. Emmanuel was paged via phone answering service at 20:35 requesting a call back for doctor to doctor consult. Dr. Emmanuel returned the call at 20:41 and the patient's case was discussed. <Monica Chauhan - Last Filed: 11/02/16 21:30> *DC/Admit/Observation/Transfer <Bibiana Minor - Last Filed: 11/02/16 19:35> - Discharge Dispostion Admit: Yes - Attestations Physician Attestion: 11/02/16 21:06 The documentation was prepared by the scribe under my direct supervision. I have reviewed the documentation which correctly represents the findings, medical decision-making and critical action taken by me. <Clement Smith - Last Filed: 11/02/16 21:16> <Monica Chauhan - Last Filed: 11/02/16 21:30> Diagnosis at time of Disposition: Acute coronary syndrome Atrial flutter Qualifiers: Atrial flutter type: unspecified Qualified Code(s): I48.92 - Unspecified atrial flutter - Referrals Referrals: Kristopher Davis MD [Primary Care Provider] -
[2016-11-02] MEDS ORDERED: amLODIPine BESYLATE 5 MG TABLET (FP) ONE (19:06)
[2016-11-02 19:07] LABS: BASOPHIL 0.7 % (0-2.0); EOSINOPHIL 1.8 % (0-4.5); MCH 28.7 pg (25.7-33.7); MCHC 32.5 g/dl (32.0-36.0); MEAN CELL VOLUME 88.3 fl (80-96); MEAN PLT VOLUME 8.4 fl (7.5-11.1); NEUTROPHILS 70.2 % (42.8-82.8); PLATELET COUNT 213 K/MM3 (134-434); WHITE BLOOD COUNT 7.4 K/mm3 (4.0-10.0)
[2016-11-02] MEDS ORDERED: dilTIAZem HCL 60 MG TABLET (FP) PO ONE ×2 (19:23→21:01)
[2016-11-02] MEDS ORDERED: dilTIAZem HCL 60 MG TABLET (FP) ONE ×2 (19:25→21:03)
[2016-11-02] MEDS ORDERED: ALPRAZolam 0.25 MG TABLET PO ONE (19:42)
[2016-11-02] MEDS ORDERED: APIXABAN 2.5 MG TABLET PO ONE (19:43)
[2016-11-02 19:53] LABS: INR 1.09 (0.82-1.09)
[2016-11-02 20:06] LABS: ALBUMIN 3.7 g/dl (3.4-5.0); ANION GAP 8 (8-16); BILIRUBIN,TOTAL 0.4 mg/dL (0.2-1.0); CALCIUM 8.5 mg/dL (8.5-10.1); CO2 27 mmol/L (21-32); COCKROFT - GAULT 71.2555; CREATININE 0.9 mg/dL (0.55-1.02); GLUCOSE,RANDOM 94 mg/dL (74-106); SGOT/AST 27 U/L (15-37); SGPT/ALT 34 U/L (12-78)
[2016-11-02 20:09] LABS: ALK PHOS 89 U/L (45-117)
[2016-11-02] MEDS ORDERED: ASPIRIN 81 MG CHEWABLE TABLETS PO ONE (20:35)
[2016-11-02] MEDS ORDERED: APIXABAN 2.5 MG TABLET PO SCH (22:00)
[2016-11-02] MEDS ORDERED: diazePAM 2 MG TABLET PO PRN (23:08)
[2016-11-02] MEDS ORDERED: ACETAMINOPHEN 325 MG TABLET (FP) PO PRN (23:09)
[2016-11-03 00:50] LABS: TROPONIN I 0.13 ng/ml (0.00-0.05)
[2016-11-03 08:35] LABS: BASOPHIL 0.8 % (0-2.0); EOSINOPHIL 2.6 % (0-4.5); MCH 29.1 pg (25.7-33.7); MCHC 33.3 g/dl (32.0-36.0); MEAN CELL VOLUME 87.6 fl (80-96); MEAN PLT VOLUME 8.2 fl (7.5-11.1); NEUTROPHILS 67.4 % (42.8-82.8); PLATELET COUNT 190 K/MM3 (134-434); RDW 13.6 % (11.6-15.6); WHITE BLOOD COUNT 6.1 K/mm3 (4.0-10.0)
[2016-11-03 09:08] LABS: ALBUMIN 3.4 g/dl (3.4-5.0); ALK PHOS 75 U/L (45-117); ANION GAP 8 (8-16); BILIRUBIN,TOTAL 0.6 mg/dL (0.2-1.0); CALCIUM 8.3 mg/dL (8.5-10.1); CO2 27 mmol/L (21-32); COCKROFT - GAULT 71.2555; CREATININE 0.9 mg/dL (0.55-1.02); GLUCOSE,RANDOM 116 mg/dL (74-106); SGOT/AST 22 U/L (15-37); SGPT/ALT 29 U/L (12-78); TOT PROT 6.3 g/dl (6.4-8.2)
[2016-11-03] MEDS: ALPRAZolam 0.25 MG TABLET PO SCH ×4 (10:17→21:54)
--- NOTE | 2016-11-03 11:37 | CON.CARD ---
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 Pt is noncompliant with meds/follow up and has numerous intolerances to meds. She stopped taking her bystolic few days ago and then yesterday had headache and checked bp at home and was sbp 200s so came to ER. No cp, sob, palps, dizzy , loc, pnd, orthopnea, le edema. Admitted for bp control. pmh: per hpi psh: colostomy, breast ca s/p mastectomy social: no tob fam: no premature cad, scd ros: per hpi; no nvd, fever, cough, rash, gib, hematuria, dysuria, wt loss meds: Home Medications Medication Instructions Recorded Diazepam [Valium] 2 mg PO TID PRN #0 tablet 05/17/15 Nebivolol [Bystolic -] 2.5 mg PO ONCE 10/23/16 pe: Vital Signs Period Temp Pulse Resp BP Sys/Jacobs Pulse Ox Last 24 Hr 97.3 F-98.3 F 49-84 17-20 155-206/72-112 96-99 nad no jvd irreg, rr, s1s2 no mrg cta bl nl eff aaox3 no le e/c/c abd nt nd pos bs no jaundice diaphoresis pos dp pt Laboratory Last Values WBC 6.1 K/mm3 (4.0-10.0) 11/03/16 05:55 RBC 3.97 M/mm3 (3.60-5.2) 11/03/16 05:55 Hgb 11.6 GM/dL (10.7-15.3) 11/03/16 05:55 Hct 34.7 % (32.4-45.2) 11/03/16 05:55 MCV 87.6 fl (80-96) 11/03/16 05:55 MCHC 33.3 g/dl (32.0-36.0) 11/03/16 05:55 RDW 13.6 % (11.6-15.6) 11/03/16 05:55 Plt Count 190 K/MM3 (134-434) 11/03/16 05:55 MPV 8.2 fl (7.5-11.1) 11/03/16 05:55 Neutrophils % 67.4 % (42.8-82.8) 11/03/16 05:55 Lymphocytes % 21.0 % (8-40) 11/03/16 05:55 Monocytes % 8.2 % (3.8-10.2) 11/03/16 05:55 Eosinophils % 2.6 % (0-4.5) 11/03/16 05:55 Basophils % 0.8 % (0-2.0) 11/03/16 05:55 INR 1.09 (0.82-1.09) 11/02/16 18:56 Sodium 144 mmol/L (136-145) 11/03/16 05:55 Potassium 3.3 mmol/L (3.5-5.1) L 11/03/16 05:55 Chloride 109 mmol/L (98-107) H 11/03/16 05:55 Carbon Dioxide 27 mmol/L (21-32) 11/03/16 05:55 Anion Gap 8 (8-16) 11/03/16 05:55 BUN 19 mg/dL (7-18) H 11/03/16 05:55 Creatinine 0.9 mg/dL (0.55-1.02) 11/03/16 05:55 Creat Clearance w eGFR > 60 (>60) 11/03/16 05:55 Random Glucose 116 mg/dL (74-106) H D 11/03/16 05:55 Calcium 8.3 mg/dL (8.5-10.1) L 11/03/16 05:55 Total Bilirubin 0.6 mg/dL (0.2-1.0) D 11/03/16 05:55 AST 22 U/L (15-37) 11/03/16 05:55 ALT 29 U/L (12-78) 11/03/16 05:55 Alkaline Phosphatase 75 U/L (45-117) 11/03/16 05:55 Creatine Kinase 211 IU/L (26-192) H 11/03/16 00:00 CK-MB (CK-2) 6.2 ng/ml (0.5-3.6) H 11/02/16 18:56 Troponin I 0.13 ng/ml (0.00-0.05) H 11/03/16 00:00 Total Protein 6.3 g/dl (6.4-8.2) L 11/03/16 05:55 Albumin 3.4 g/dl (3.4-5.0) 11/03/16 05:55 echo 02/2015: nl lv/rv, mild-mod ar, mild mr, rvsp 30-40 tele: afib, rate controlled ecg 11/02/16: aflutter, vr 81, nl qtc, no ischemic changes cxr: no sig chf a/p: 81 f hx cad/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 htn: -numerous intolerances and noncompliance with meds -today bp still elevated but improved -will try hydralazine 25 mg bid -starting xanax for anxiety here which may help bp as well cad, nstemi: -refuses appropriate cardiac meds such as asa, statin. -refused ischemic testing -nl lvef on recent echo -monitor for new sxs afib/flutter: -rate controlled off meds and when got po dilt here had slow ventricular response so will hold off on rate meds for now -pt with hx of cva and indication for AC but refuses. Also declines asa. hld: -declines statin elevated trop: -trop borderline elevated with flat trend and nl ckmb index, not consistent with acs -pt declines any further cardiac testing. can f/u as outpt to see if she changes her mind.
[2016-11-03] MEDS: hydrALAZINE HCL 25 MG TABLET (FP) PO SCH ×3 (11:49→16:04)
--- NOTE | 2016-11-03 13:44 | HP ---
Admitting History and Physical - Primary Care Physician PCP: Kristopher Davis - Admission Chief Complaint: chest pain and high blood pressure History of Present Illness: 81 female with significant past medical history of cad/nstemi 02/2015, cva 2014, atrial fibrillation, hypertension, hyperlipidemia, admitted last night with h/o chest pain at home and uncontrolled blood pressure. Pt is noncompliant with meds /follow up and has numerous intolerances to meds. She stopped taking her bystolic few days ago and then yesterday had headache and checked bp at home and was sbp 200s so came to ER. She received diltiazem in the ER for rate control and also for high BP. Patient seen and examined. Reports "triple vision" after taking alprazolam. H/O "triple vision" for many months and was told it was due to vertigo. She does not want to take alprazolam now and also would like to discontinue valium. H/O allergies to multiple anti- anxiety medications in the past. She also want to be discharged tomorrow morning because she wants to keep her appointment with the extrusion die template maker in the city tomorrow afternoon. Denies chest pain, shortness of breath, palpitation or dizziness. Denies headache or blurring of vision. Denies bladder or bowel complaint. History Source: Patient, Medical Record - Past Medical History PRODUCTION SUPPORT DEVELOPER: Yes: CVA Cardiovascular: Yes: AFIB, CAD, HTN, Hyperlipdemia, IA Gastrointestinal: Yes: Diverticulosis Heme/Onc: Yes: Cancer (Breast CA) Psych: Yes: Anxiety - Past Surgical History Past Surgical History: Yes: Colostomy (repaired), Mastectomy - Smoking History Smoking history: Never smoked Have you smoked in the past 12 months: No Aproximately how many cigarettes per day: 0 - Alcohol/Substance Use Hx Alcohol Use: No History of Substance Use: reports: None - Social History ADL: Independent History of Recent Travel: No Home Medications - Allergies Allergies/Adverse Reactions: Allergies Allergy/AdvReac Type Severity Reaction Status Date / Time Sulfa (Sulfonamide Allergy Unknown Verified 11/02/16 17:49 Antibiotics) [Sulfa(Sulfonamide Antibiotics)] atropine Allergy Verified 11/02/16 17:49 nitrofurantoin Allergy Verified 11/02/16 17:49 [From Macrobid] nitrofurantoin Allergy Verified 11/02/16 17:49 macrocrystalline [From Macrobid] pantoprazole sodium Allergy Verified 11/02/16 17:49 [From Protonix] venlafaxine HCl Allergy Verified 11/02/16 17:49 [From Effexor] clindamycin AdvReac Verified 11/02/16 17:49 clonazepam AdvReac Verified 11/02/16 17:49 digoxin AdvReac Verified 11/02/16 17:49 escitalopram oxalate AdvReac Verified 11/02/16 17:49 [From Lexapro] famotidine AdvReac Verified 11/02/16 17:49 furosemide [From Lasix] AdvReac Verified 11/02/16 17:49 gatifloxacin [From Tequin] AdvReac Verified 11/02/16 17:49 gentamicin [Gentamicin] AdvReac Verified 11/02/16 17:49 hydroxyzine HCl AdvReac Verified 11/02/16 17:49 [From Vistaril] hydroxyzine pamoate AdvReac Verified 11/02/16 17:49 [From Vistaril] levofloxacin [From Levaquin] AdvReac Verified 11/02/16 17:49 metoprolol succinate AdvReac Verified 11/02/16 17:49 [From Toprol XL] moxifloxacin HCl AdvReac Verified 11/02/16 17:49 [From Avelox] mupirocin AdvReac Verified 11/02/16 17:49 paroxetine HCl [From Paxil] AdvReac Verified 11/02/16 17:49 sertraline HCl [From Zoloft] AdvReac Verified 11/02/16 17:49 sotalol [Sotalol] AdvReac Verified 11/02/16 17:49 tramadol HCl [From Ultram] AdvReac Verified 11/02/16 17:49 - Home Medications Home Medications: Ambulatory Orders Diazepam [Valium] 2 mg PO TID PRN #0 tablet 05/17/15 Nebivolol [Bystolic -] 2.5 mg PO ONCE 10/23/16 Review of Systems - Review of Systems Constitutional: reports: Weakness Eyes: reports: Blurred Vision (triple vision) HENT: reports: No Symptoms Cardiovascular: reports: Chest Pain Respiratory: reports: No Symptoms Gastrointestinal: reports: No Symptoms Genitourinary: reports: No Symptoms Breasts: reports: No Symptoms Reported Musculoskeletal: reports: Extremity Pain, Muscle Weakness Integumentary: reports: No Symptoms Neurological: reports: Dizziness Endocrine: reports: No Symptoms Hematology/Lymphatic: reports: No Symptoms Psychiatric: reports: No Symptoms Physical Examination Vital Signs: Vital Signs Temperature 98.3 F 11/03/16 08:27 Pulse Rate 49 L 11/03/16 08:27 Respiratory Rate 20 11/03/16 08:27 Blood Pressure 155/74 11/03/16 08:27 O2 Sat by Pulse Oximetry (%) 96 11/02/16 23:09 Constitutional: Yes: Well Nourished, Anxious Eyes: Yes: Conjunctiva Clear, EOM Intact HENT: Yes: Atraumatic, Normocephalic Neck: Yes: Supple, Trachea Midline Cardiovascular: Yes: Regular Rate and Rhythm Respiratory: Yes: Regular, CTA Bilaterally Gastrointestinal: Yes: Normal Bowel Sounds, Soft ...Rectal Exam: Yes: Deferred Renal/: Yes: WNL Musculoskeletal: Yes: Muscle Weakness Extremities: Yes: WNL Edema: No Peripheral Pulses WNL: Yes Integumentary: Yes: WNL Neurological: Yes: Alert, Oriented ...Motor Strength: WNL Psychiatric: Yes: Alert, Oriented Labs: CBC, BMP 11/03/16 05:55 11/03/16 05:55 Imaging - Results Chest X-ray: Report Reviewed Problem List - Problems (1) Acute coronary syndrome Assessment/Plan: Ruled out. Cardiology consult appreciated. Refuses to be on aspirin/BB. Code(s): I24.9 - ACUTE ISCHEMIC HEART DISEASE, UNSPECIFIED (2) Atrial flutter Code(s): I48.92 - UNSPECIFIED ATRIAL FLUTTER Qualifiers: Atrial flutter type: unspecified Qualified Code(s): I48.92 - Unspecified atrial flutter (3) Anxiety Assessment/Plan: Does not want to be valium. C/O "triple vision" with alprazolam. Allergies to multiple anti anxiety meds in the past. To see outpatient psychiatrist. Code(s): F41.9 - ANXIETY DISORDER, UNSPECIFIED (4) Cerebrovascular accident (CVA) Assessment/Plan: Was started on Eliquis for the same in the past. Discontinued her own. Refuses to be on aspirin as well. Code(s): I63.9 - CEREBRAL INFARCTION, UNSPECIFIED (5) HTN (hypertension) Assessment/Plan: Multiple allergies. Could not tolerate bystolic started recently by PCP. Started on hydralazine 25 mg BID. Hope she tolerates this one. Low salt diet. Code(s): I10 - ESSENTIAL (PRIMARY) HYPERTENSION Qualifiers: Hypertension type: essential hypertension Qualified Code(s): I10 - Essential (primary) hypertension (6) Hypercholesteremia Assessment/Plan: Refused statins in the past. Code(s): E78.0 - PURE HYPERCHOLESTEROLEMIA * DO NOT USE * (7) Obese Assessment/Plan: Out patient follow up. Code(s): E66.9 - OBESITY, UNSPECIFIED (8) Vertigo Assessment/Plan: To see ENT as outpatient. Cannot tolerate Meclizine. Code(s): R42 - DIZZINESS AND GIDDINESS (9) Vision changes Assessment/Plan: Chronic. Patient was told it was due to vertigo. Patient wants to go home in the morning to keep appointment with his extrusion die template maker tomorrow afternoon. Hope she tolerates hydralazine. Code(s): H53.9 - UNSPECIFIED VISUAL DISTURBANCE
[2016-11-03] MEDS ORDERED: POTASSIUM CHLORIDE TABS 20 MEQ TABLET.ER (FP) PO ONE ×2 (14:05→16:00)
[2016-11-04] MEDS: hydrALAZINE HCL 25 MG TABLET (FP) PO SCH ×2 (01:45→09:13)
[2016-11-04] MEDS: ALPRAZolam 0.25 MG TABLET PO SCH (05:33)
--- NOTE | 2016-11-04 09:22 | PN ---
Progress Note, Physician Chief Complaint: hypertensive urgency History of Present Illness: c/o generalized weakness, triple vision that she thinks is vertigo no c/o cp, sob, palpitations - Current Medication List Current Medications: Active Medications Acetaminophen (Tylenol -) 650 mg PO Q6H PRN PRN Reason: FEVER OR PAIN Last Admin: 11/03/16 05:47 Dose: 325 mg Alprazolam (Xanax -) 0.25 mg PO TID [facility] Last Admin: 11/04/16 05:33 Dose: 0.25 mg Hydralazine HCl (Apresoline -) 25 mg PO BID [facility] Last Admin: 11/04/16 09:13 Dose: 25 mg - Objective Vital Signs: Vital Signs Temperature 98.0 F 11/04/16 05:37 Pulse Rate 69 11/04/16 05:37 Respiratory Rate 20 11/04/16 05:37 Blood Pressure 145/90 11/04/16 05:37 O2 Sat by Pulse Oximetry (%) 95 11/03/16 21:00 Constitutional: Yes: Well Nourished, No Distress, Calm Cardiovascular: Yes: Regular Rate and Rhythm, S1, S2. No: Gallop, Murmur Respiratory: Yes: Regular, CTA Bilaterally. 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 htn: -numerous intolerances and noncompliance with meds -is treated by double needle operator as outpatient -bp's here much better than on DOA, remains mildly-mod elevated: mostly 150s- 160s/80s-90s, with rare readings higher than this -given trial of hydralazine 25 mg bid here--would cont same (if pt willing) -? anxiety contributing to bp behavior--refusing pharma tx fro this h/o cad/nstemi: -serial trop here not c/w plaque rupture/ACS event, no isch changes on ecg -refuses appropriate cardiac meds such as asa, statin. -refused ischemic testing previously -nl lvef on prior echo afib/flutter: -rate controlled off meds and when got po dilt here had slow ventricular response so will hold off on rate meds for now -pt with hx of cva and indication for AC but has refused this therapy, as well as ASA wide complex tach: -relatively slow brief run (5 beats) overnight--c/w AIVR or aberrantly conducted AFL -AIVR, if present in this context, is not pathological with no adverse prognosis associated in pt with normal LVEF--could be sec to [facility], and pt obese-- rec outpt sleep study if she is willing hld: -declines statin no further inpatient CV workup indicated here
--- NOTE | 2016-11-04 10:43 | EKG ---
Test Reason : Blood Pressure : / mmHG Vent. Rate : 083 BPM Atrial Rate : 250 BPM P-R Int : 000 ms QRS Dur : 088 ms QT Int : 392 ms P-R-T Axes : 000 003 068 degrees QTc Int : 460 ms ATRIAL FLUTTER WITH VARIABLE A-V BLOCK CANNOT RULE OUT ANTERIOR INFARCT , AGE UNDETERMINED POOR R WAVE PROGRESSION ABNORMAL ECG WHEN COMPARED WITH ECG OF 24-OCT-2016 01:58, ATRIAL FLUTTER HAS REPLACED ATRIAL FIBRILLATION Confirmed by JOVANNY BENDER MD ([id number]) on 11/04/2016 10:43:05 AM Referred By: Confirmed By:JOVANNY BENDER MD
--- NOTE | 2016-11-04 11:31 | DS ---
Physical Examination Vital Signs: Vital Signs Temperature 98.0 F 11/04/16 05:37 Pulse Rate 69 11/04/16 05:37 Respiratory Rate 20 11/04/16 05:37 Blood Pressure 145/90 11/04/16 05:37 O2 Sat by Pulse Oximetry (%) 95 11/03/16 21:00 Constitutional: Yes: No Distress, Calm, Obese Cardiovascular: Yes: Regular Rate and Rhythm. No: Gallop, Murmur, Rub Respiratory: Yes: Regular, CTA Bilaterally. No: Rales, Rhonchi, Wheezes Gastrointestinal: Yes: Normal Bowel Sounds, Soft. No: Distention, Tenderness Extremities: Yes: WNL Edema: No Labs: CBC, BMP 11/03/16 05:55 11/03/16 05:55 Discharge Summary Reason For Visit: ATRIAL FLUTTER Current Active Problems Acute coronary syndrome (Acute) Atrial flutter (Acute) Hospital Course: (1) Acute coronary syndrome Code(s): I24.9 - ACUTE ISCHEMIC HEART DISEASE, UNSPECIFIED (2) Atrial flutter Code(s): I48.92 - UNSPECIFIED ATRIAL FLUTTER Qualifiers: Atrial flutter type: unspecified Qualified Code(s): I48.92 - Unspecified atrial flutter (3) Anxiety Code(s): F41.9 - ANXIETY DISORDER, UNSPECIFIED (4) Cerebrovascular accident (CVA) Code(s): I63.9 - CEREBRAL INFARCTION, UNSPECIFIED (5) HTN (hypertension) Code(s): I10 - ESSENTIAL (PRIMARY) HYPERTENSION Qualifiers: Hypertension type: essential hypertension Qualified Code(s): I10 - Essential (primary) hypertension (6) Hypercholesteremia Code(s): E78.0 - PURE HYPERCHOLESTEROLEMIA * DO NOT USE * (7) Obese Code(s): E66.9 - OBESITY, UNSPECIFIED (8) Vertigo Code(s): R42 - DIZZINESS AND GIDDINESS (9) Vision changes Ms Padron is an 81 year old female who came in with chest pain and hypertension. She was admitted to the hospital and monitored on telemetry. She was seen by cardiology. Cardiac enzymes x3 were checked and were stable. She has a history of multiple intolerances to medications, she was started on hydralazine here and tolerated it. She will be discharged home on low dose and can increase as an outpatient as necessary. She is currently safe for discharge home with follow up. Condition: Good - Instructions Diet, Activity, Other Instructions: resume previous diet and activity Referrals: Stefanie Mandujano MD [Staff Physician] - Kristopher Davis MD [Primary Care Provider] - Disposition: HOME - Home Medications Comprehensive Discharge Medication List: Ambulatory Orders Diazepam [Valium] 2 mg PO TID PRN #0 tablet 05/17/15 Apixaban [Eliquis -] 2.5 mg PO BID #60 tablet 11/04/16 Hydralazine HCl [Apresoline -] 25 mg PO BID #60 tablet 11/04/16
[2016-11-04 11:45] VITALS: BP 166/96; PULSE 102; TEMP 98.4
== END 2016-11-04 13:38 | disposition home or self-care (01) | DRG 305 ==
LOC: SUPCPDRO 17:45 → JER 17:45 → JERBED 21:17 → J4W 23:18
PROVIDERS: ADMIT Internal Medicine Geriatric Medicine; ATTEND Internal Medicine Geriatric Medicine
DX: I16.0 Hypertensive urgency (principal); I48.92 Unspecified atrial flutter; I24.9 Acute ischemic heart disease, unspecified; R51 Headache; I48.91 Unspecified atrial fibrillation; I25.2 Old myocardial infarction; Z91.14 Patient's other noncompliance with medication regimen; Z87.442 Personal history of urinary calculi; Z86.73 Personal history of transient ischemic attack (TIA), and cerebral infarction without residual deficits; Z79.01 Long term (current) use of anticoagulants; I25.10 Atherosclerotic heart disease of native coronary artery without angina pectoris; K57.90 Diverticulosis of intestine, part unspecified, without perforation or abscess without bleeding; Z85.3 Personal history of malignant neoplasm of breast; F41.9 Anxiety disorder, unspecified; R42 Dizziness and giddiness; E66.9 Obesity, unspecified; Z68.32 Body mass index [BMI] 32.0-32.9, adult; R00.0 Tachycardia, unspecified; R07.9 Chest pain, unspecified
CPT/HCPCS: 36415; 71010-TC; 80053; 82550; 82553; 84484; 85025; 85610; 93005; 93010; 99285-25